=== PATIENT | male | born 1965 | race Caucasian/White ===

== ENCOUNTER → 2016-02-12 | Outpatient (CLI) | payer MEDICARE, OTHER ==
[2016-02-12 10:28] LABS: Appearance,Urine Clear (Clear); Bilirubin,Urine Negative (Negative); Glucose,Urine (UA) Negative (Negative); Ketones,Urine Trace (Negative); Leukocyte Esterase,Urine Negative (Negative); Nitrite,Urine Negative (Negative); Protein,Urine Trace (Negative); UA Billing (MACRO vs. MICRO) CHEM; Urobilinogen,Urine <2.0 mg/dL (<2.0)
[2016-02-12 10:34] LABS: Basophils % (A) 1 %; CH 30.5; CHCM 32.9; Eosinophils # (A) 0.2 k/uL (0-0.7); Eosinophils % (A) 4 %; HCT 43.8 % (39.0-53.0); HDW 2.54; HGB 14.3 gm/dL (13.0-17.5); Luc # (Auto) 0.13; Luc % (Auto) 3; Lymphocytes # (A) 1.9 k/uL (1.0-4.8); Lymphocytes % (A) 40 %; MCH 30.5 pg (25.0-35.0); MCHC 32.7 g/dL (31.0-37.0); MCV 93.3 fL (80.0-100.0); Monocytes # (A) 0.4 k/uL (0-1.0); Monocytes % (A) 8 %; Neutrophils # (A) 2.2 k/uL (1.3-7.7); Neutrophils % (A) 45 %; RBC 4.69 m/uL (4.30-5.90); WBC 4.8 k/uL (3.8-10.6); WBC (Perox) 5.24
[2016-02-12 11:00] LABS: Hemoglobin A1C 4.9 % (4.2-6.1)
[2016-02-12 11:05] LABS: ALT 25 U/L (21-72); AST 32 U/L (17-59); Alkaline Phosphatase 55 U/L (38-126); Anion Gap 10 mmol/L; Bilirubin, Delta 0.3 mg/dL (0.0-0.2); Blood Urea Nitrogen 15 mg/dL (9-20); Calcium 9.6 mg/dL (8.4-10.2); Carbon Dioxide 30 mmol/L (22-30); Chloride 103 mmol/L (98-107); Cholesterol 212 mg/dL (<200); Glucose 82 mg/dL (74-99); HDL Cholesterol 46 mg/dL (40-60); Non-African American GFR(MDRD) >60 (>60 ml/min/1.73 sqM); Potassium 4.2 mmol/L (3.5-5.1); Sodium 143 mmol/L (137-145); Total Bilirubin 0.5 mg/dL (0.2-1.3); Total Protein 6.9 g/dL (6.3-8.2); Triglycerides 127 mg/dL (<150)
[2016-02-12 11:33] LABS: Prostate Specific Antigen 1.05 ng/mL (0.00-4.00)
== END | disposition home or self-care (01) ==
LOC: LABWHC1 09:44
PROVIDERS: ATTEND Internal Medicine
DX: I10 Essential (primary) hypertension (principal); E78.5 Hyperlipidemia, unspecified; E55.9 Vitamin D deficiency, unspecified; Z12.5 Encounter for screening for malignant neoplasm of prostate; Z79.899 Other long term (current) drug therapy
CPT/HCPCS: 36415; 80053; 80061; 80164; 81003; 82248; 82306; 83036; 84153; 85025

== ENCOUNTER 2016-05-27 10:56 | Day surgery (SDC) | payer MEDICARE, OTHER ==
[2016-05-26 10:21] VITALS: BMI 34.4
[~2016-05-27 10:56] MED LIST: LACTATED RINGERS 1,000 ML IV SCH
[2016-05-27 12:51] VITALS: TEMP 97.1
[2016-05-27] MEDS ORDERED: LIDOCAINE 1% 20 ML VIAL (10MG/ML) FOR IV START INTRADERMA ONE (12:54)
[2016-05-27] MEDS ORDERED: PROPOFOL 10 MG/ML 20 ML VIAL IV ONE (12:58)
--- NOTE | 2016-05-27 13:17 | P.PCN ---
Date of Procedure: 05/27/16 Procedure(s) Performed: BRIEF HISTORY: Patient is a 51-year-old pleasant white male scheduled for an elective colonoscopy as a part of screening for colorectal neoplasia. PROCEDURE PERFORMED: Colonoscopy with biopsy. PREOPERATIVE DIAGNOSIS: Screening for colon cancer. IV sedation per Anesthesia. PROCEDURE: After informed consent was obtained, the patient, was brought into the endoscopy unit. IV sedation was administered by Anesthesia under continuous monitoring. Digital rectal examination was normal. Initially the Olympus CF- 160 flexible video colonoscope was then inserted in the rectum, gradually advanced into the cecum without any difficulty. Careful examination was performed as the scope was gradually being withdrawn. Ileocecal valve and the appendiceal orifice were visualized and appeared normal. Prep was excellent. Mucosa of the cecum, ascending colon, transverse colon, descending colon, appeared normal. In the sigmoid colon there was a polyp that was removed by biopsy. The rest of the sigmoid colon, and rectum appeared normal. Scattered sigmoid diverticula seen. Retroflexion was performed in the rectum and no lesions were seen. The patient tolerated the procedure well. IMPRESSION: 5 mm sigmoid colon polyp status post removal by biopsy. Scattered sigmoid diverticulosis RECOMMENDATIONS: Findings of this examination were discussed with the patient as well as his family. He was advised to follow with the biopsy results. If the biopsy shows a tubular adenoma he can have a repeat colonoscopy in 5 years .
[2016-05-27 13:42] VITALS: BP 139/91; PULSE 55; RESP 16
== END 2016-05-27 14:28 | disposition home or self-care (01) ==
LOC: ORWHC2ENDO 10:56
PROVIDERS: ATTEND Internal Medicine Gastroenterology
DX: Z12.11 Encounter for screening for malignant neoplasm of colon (principal); K63.5 Polyp of colon; K57.30 Diverticulosis of large intestine without perforation or abscess without bleeding; F31.9 Bipolar disorder, unspecified; G20 Parkinson's disease; Z79.899 Other long term (current) drug therapy; Z88.8 Allergy status to other drugs, medicaments and biological substances
CPT/HCPCS: 88305; 45380; J2704

== ENCOUNTER → 2016-09-21 | Outpatient (CLI) | payer MEDICARE, OTHER ==
[2016-09-21 09:42] LABS: Basophils % (A) 0 %; CH 31.5; CHCM 33.5; Eosinophils # (A) 0.2 k/uL (0-0.7); Eosinophils % (A) 5 %; HCT 42.1 % (39.0-53.0); HDW 2.43; HGB 13.6 gm/dL (13.0-17.5); Luc % (Auto) 2; Lymphocytes # (A) 1.8 k/uL (1.0-4.8); Lymphocytes % (A) 37 %; MCH 30.5 pg (25.0-35.0); MCHC 32.2 g/dL (31.0-37.0); MCV 94.6 fL (80.0-100.0); Mean Platelet Volume 7.9; Monocytes # (A) 0.4 k/uL (0-1.0); Monocytes % (A) 8 %; Neutrophils # (A) 2.3 k/uL (1.3-7.7); Neutrophils % (A) 48 %; RBC 4.45 m/uL (4.30-5.90); WBC 4.8 k/uL (3.8-10.6); WBC (Perox) 4.67
[2016-09-21 11:48] LABS: Bilirubin, Delta 0.4 mg/dL (0.0-0.2); Total Bilirubin 0.5 mg/dL (0.2-1.3)
[2016-09-21 13:14] LABS: Hemoglobin A1C 5.5 % (4.2-6.1)
== END | disposition home or self-care (01) ==
LOC: LABWHC1 08:55
DX: Z51.81 Encounter for therapeutic drug level monitoring (principal); Z79.899 Other long term (current) drug therapy
CPT/HCPCS: 36415; 80061; 80076; 82947; 83036; 84146; 84443; 85025

== ENCOUNTER → 2016-09-22 | Outpatient (CLI) | payer MEDICARE, OTHER | END | disposition home or self-care (01) | LOC: LABWHC1 08:39 | DX: Z51.81 Encounter for therapeutic drug level monitoring (principal); Z79.899 Other long term (current) drug therapy | CPT/HCPCS: 36415; 80164 ==

== ENCOUNTER → 2017-08-17 | Outpatient (CLI) | payer MEDICARE, OTHER ==
[2017-08-17 09:35] LABS: Basophils % (A) 0 %; Eosinophils # (A) 0.2 k/uL (0-0.7); Eosinophils % (A) 4 %; HCT 40.2 % (39.0-53.0); HGB 13.5 gm/dL (13.0-17.5); Lymphocytes # (A) 2.1 k/uL (1.0-4.8); Lymphocytes % (A) 40 %; MCH 30.8 pg (25.0-35.0); MCHC 33.5 g/dL (31.0-37.0); MCV 92.1 fL (80.0-100.0); Mean Platelet Volume 7.2; Monocytes # (A) 0.4 k/uL (0-1.0); Monocytes % (A) 8 %; Neutrophils # (A) 2.5 k/uL (1.3-7.7); Neutrophils % (A) 47 %; Platelet Count 184 k/uL (150-450); RBC 4.37 m/uL (4.30-5.90); RDW 14.6 % (11.5-15.5); WBC 5.3 k/uL (3.8-10.6)
[2017-08-17 11:23] LABS: ALT 37 U/L (21-72); AST 20 U/L (17-59); Albumin 3.9 g/dL (3.5-5.0); Alkaline Phosphatase 58 U/L (38-126); Anion Gap 10 mmol/L; Bilirubin, Delta 0.2 mg/dL (0.0-0.2); Blood Urea Nitrogen 20 mg/dL (9-20); Calcium 9.5 mg/dL (8.4-10.2); Carbon Dioxide 27 mmol/L (22-30); Chloride 103 mmol/L (98-107); Cholesterol 174 mg/dL (<200); Glucose 102 mg/dL (74-99); HDL Cholesterol 38 mg/dL (40-60); LDL Cholesterol,Calculated 95 mg/dL (0-99); Potassium 4.2 mmol/L (3.5-5.1); Sodium 140 mmol/L (137-145); Total Bilirubin 0.2 mg/dL (0.2-1.3); Total Protein 6.5 g/dL (6.3-8.2); Triglycerides 207 mg/dL (<150)
[2017-08-17 17:18] LABS: Hemoglobin A1C 5.3 % (4.0-6.0)
== END | disposition home or self-care (01) ==
LOC: LABWHC1 08:48
DX: Z51.81 Encounter for therapeutic drug level monitoring (principal); Z79.899 Other long term (current) drug therapy
CPT/HCPCS: 36415; 80053; 80061; 80164; 82248; 83036; 84439; 84443; 84481; 85025

== ENCOUNTER → 2017-12-05 | Outpatient (CLI) | payer MEDICARE, OTHER ==
[2017-12-05 10:42] LABS: Basophils % (A) 1 %; Eosinophils # (A) 0.2 k/uL (0-0.7); Eosinophils % (A) 4 %; HCT 41.8 % (39.0-53.0); HGB 13.9 gm/dL (13.0-17.5); Lymphocytes % (A) 39 %; MCHC 33.4 g/dL (31.0-37.0); MCV 92.9 fL (80.0-100.0); Mean Platelet Volume 7.1; Monocytes # (A) 0.4 k/uL (0-1.0); Monocytes % (A) 7 %; Neutrophils # (A) 2.5 k/uL (1.3-7.7); Neutrophils % (A) 48 %; Platelet Count 201 k/uL (150-450); RBC 4.49 m/uL (4.30-5.90); RDW 14.3 % (11.5-15.5); WBC 5.1 k/uL (3.8-10.6)
[2017-12-05 10:43] LABS: Appearance,Urine Clear (Clear); Bilirubin,Urine Negative (Negative); Blood,Urine Negative (Negative); Color,Urine Light Yellow; Glucose,Urine (UA) Negative (Negative); Ketones,Urine Negative (Negative); Leukocyte Esterase,Urine Negative (Negative); Nitrite,Urine Negative (Negative); PH, Urine 5.5 (5.0-8.0); Protein,Urine Negative (Negative); Specific Gravity,Urine 1.013 (1.001-1.035); Urobilinogen,Urine <2.0 mg/dL (<2.0)
[2017-12-05 16:37] LABS: Albumin 4.3 g/dL (3.80-4.90); Albumin/Globulin Ratio 2.05 (1.20-2.10); Anion Gap 8.2 mmol/L (4.00-12.00); Calcium 9.7 mg/dL (8.7-10.3); Carbon Dioxide 29.8 mmol/L (21.6-31.8); Globulin 2.1 g/dL (2.1-3.7); LDL Cholesterol,Calculated 106.6 mg/dL (0.0-131.0); Potassium 4.1 mmol/L (3.5-5.5); Total Bilirubin 0.3 mg/dL (0.3-1.2); Total Protein 6.4 g/dL (6.2-8.2); VLDL Calculation 45.4 mg/dL (5.00-40.00)
[2017-12-05 18:31] LABS: Hemoglobin A1C 5.3 % (4.0-6.0)
== END | disposition home or self-care (01) ==
LOC: LABWHC1 09:33
PROVIDERS: ATTEND Internal Medicine
DX: I10 Essential (primary) hypertension (principal); R73.02 Impaired glucose tolerance (oral); E66.9 Obesity, unspecified
CPT/HCPCS: 36415; 80053; 80061; 81003; 83036; 84443; 85025

== ENCOUNTER → 2018-07-31 | Outpatient (CLI) | payer MEDICARE, OTHER ==
[2018-07-31 10:38] LABS: HCT 38.6 % (39.0-53.0); HGB 12.7 gm/dL (13.0-17.5); MCH 30.3 pg (25.0-35.0); MCHC 32.9 g/dL (31.0-37.0); MCV 92.2 fL (80.0-100.0); Mean Platelet Volume 7.9; Platelet Count 177 k/uL (150-450); RBC 4.18 m/uL (4.30-5.90); RDW 15.6 % (11.5-15.5); WBC 5.3 k/uL (3.8-10.6)
[2018-07-31 16:27] LABS: African American GFR (CKD) 112.6 (60.0-200.0); Albumin 4.2 g/dL (3.80-4.90); Albumin/Globulin Ratio 2.21 (1.60-3.17); Anion Gap 10.5 mmol/L (4.00-12.00); BUN/Creat Ratio 22.22 Ratio (12.00-20.00); Calcium 9.2 mg/dL (8.7-10.3); Carbon Dioxide 24.5 mmol/L (21.6-31.8); Globulin 1.9 g/dL (1.6-3.3); LDL Cholesterol,Calculated 120.8 mg/dL (0.0-131.0); Potassium 4.1 mmol/L (3.5-5.5); Total Bilirubin 0.3 mg/dL (0.2-1.2); Total Protein 6.1 g/dL (6.2-8.2); VLDL Calculation 36.2 mg/dL (5.00-40.00)
[2018-07-31 16:33] LABS: T4, Free (Free Thyroxine) 0.9 ng/dL (0.80-1.80)
== END | disposition home or self-care (01) ==
LOC: LABWHC1 09:03
PROVIDERS: ATTEND Physician Assistant
DX: Z00.00 Encounter for general adult medical examination without abnormal findings (principal); Z13.220 Encounter for screening for lipoid disorders; R53.83 Other fatigue; Z12.5 Encounter for screening for malignant neoplasm of prostate
CPT/HCPCS: 36415; 80053; 80061; 82306; 84153; 84439; 84443; 85027

== ENCOUNTER 2019-03-13 16:10 | Inpatient (IN) | payer MEDICARE, OTHER ==
[2019-03-13] MEDS ORDERED: ONDANSETRON 4 MG/2 ML VIAL IVP STA (17:13)
[2019-03-13] MEDS ORDERED: PANTOPRAZOLE 40 MG/10 ML VIAL IVP STA (17:13)
[2019-03-13] MEDS ORDERED: MORPHINE SULFATE 4 MG/ML SYRINGE IV STA (17:13)
[2019-03-13] MEDS ORDERED: SODIUM CHLORIDE 0.9% 1,000 ML IV STA (17:13)
--- NOTE | 2019-03-13 17:13 | ED ---
Abdominal Pain HPI - General Chief Complaint: Abdominal Pain Stated Complaint: Diarrhea Time Seen by Provider: 03/13/19 16:35 Source: patient, RN notes reviewed, old records reviewed Mode of arrival: ambulatory Limitations: no limitations - History of Present Illness Initial Comments: This is a 53-year-old male here for evaluation presented for evaluation regards to multiple complaints including abdominal pain positive nausea vomiting and diarrhea. He says he had similar symptoms about 6 years ago or more persistent today denying any fevers. No sick contacts or travel history and unsure of significant cause a had prior he states he did not require hospitalization is no history of surgical procedures on his abdomen. No recent change in medications. Patient was at his guardians house earlier today with the symptoms going persistent nausea and abdominal pain and was urged to complete hospital, patient presents today with continued abdominal pain no active nausea vomiting MD Complaint: abdominal pain, other (Persistent nausea vomiting) -: hour(s) Location: diffuse Migration to: no migration Severity: moderate Severity scale (1-10): 4 Quality: cramping Consistency: constant Improves With: nothing Worsens With: nothing Associated Symptoms: nausea, vomiting - Related Data Home Medications Medication Instructions Recorded Confirmed Benztropine Mesylate [Cogentin] 2 mg PO BID 10/21/15 05/26/16 Divalproex ER [Depakote ER] 500 mg PO TID 10/21/15 05/26/16 Losartan Potassium [Cozaar] 100 mg PO DAILY 10/21/15 05/26/16 Lurasidone [Latuda] 80 mg PO HS 10/21/15 05/26/16 QUEtiapine [SEROquel] 200 mg PO HS 10/21/15 05/26/16 amLODIPine [Norvasc] 2.5 mg PO DAILY 10/21/15 05/26/16 Carbidopa/Levodopa [Carbidopa-Levo 1 each PO TID 05/26/16 05/26/16 25-250 mg Odt] Diclofenac Sodium [Voltaren] 75 mg PO BID 05/26/16 05/26/16 Primidone [Mysoline] 50 mg PO TID 05/26/16 05/26/16 fluPHENAZine [Prolixin 5MG] 5 mg PO BID 05/26/16 05/26/16 Allergies Allergy/AdvReac Type Severity Reaction Status Date / Time haloperidol [From Haldol] Allergy Unknown Verified 03/13/19 16:21 haloperidol lactate Allergy Unknown Verified 03/13/19 16:21 [From Haldol] risperidone [From Risperdal] Allergy Unknown Verified 03/13/19 16:21 Review of Systems ROS Statement: Those systems with pertinent positive or pertinent negative responses have been documented in the HPI. ROS Other: All systems not noted in ROS Statement are negative. 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 DEPAKOTE PER LEGAL GUARDIAN", PARKINSON DISEASE History of Any Multi-Drug Resistant Organisms: None Reported Past Surgical History: No Surgical Hx Reported Additional Past Surgical History / Comment(s): upper gi Additional Past Anesthesia/Blood Transfusion Reaction / Comment(s): FIRST ANESTHETIC Past Psychological History: Bipolar, Schizophrenia Smoking Status: Never smoker Past Alcohol Use History: None Reported Past Drug Use History: None Reported - Past Family History Mother Family Medical History: No Reported History General Exam Limitations: no limitations General appearance: alert, in no apparent distress Head exam: Present: atraumatic, normocephalic, normal inspection Eye exam: Present: normal appearance, PERRL, EOMI. Absent: scleral icterus, conjunctival injection, periorbital swelling ENT exam: Present: normal exam, mucous membranes moist Neck exam: Present: normal inspection. Absent: tenderness, meningismus, lymphadenopathy Respiratory exam: Present: normal lung sounds bilaterally. Absent: respiratory distress, wheezes, rales, rhonchi, stridor Cardiovascular Exam: Present: regular rate, normal rhythm, normal heart sounds. Absent: systolic murmur, diastolic murmur, rubs, gallop, clicks GI/Abdominal exam: Present: soft, normal bowel sounds. Absent: distended, tenderness, guarding, rebound, rigid Extremities exam: Present: normal inspection, full ROM, normal capillary refill. Absent: tenderness, pedal edema, joint swelling, calf tenderness Back exam: Present: normal inspection Neurological exam: Present: alert, oriented X3, CN II-XII intact Psychiatric exam: Present: normal affect, normal mood Skin exam: Present: warm, dry, intact, normal color. Absent: rash Course Vital Signs 03/13/19 03/13/19 16:19 18:41 Temperature 98.9 F Pulse Rate 86 78 Respiratory 20 16 Rate Blood Pressure 155/56 142/73 O2 Sat by Pulse 10 L 100 Oximetry - Reevaluation(s) Reevaluation #1: 03/13/19 17:13 Medical records reviewed Reevaluation #2: 03/13/19 19:24 Patient still with persistent nausea vomiting and diarrhea here in the ER - Consultations Consultation #1: Spoke with Dr. Moreno was agreeable to admit Medical Decision Making - Medical Decision Making 53 male does have persistent nausea vomiting with diarrhea here in the ER CT is consistent for ileus with significant amount of stool Giles. Diarrheal illness. Patient be admitted for hydration and symptomatic management - Lab Data Result diagrams: 03/13/19 17:06 03/13/19 17:06 Lab Results 03/13/19 03/13/19 03/13/19 Range/Units 17:06 17:06 17:06 WBC 8.7 (3.8-10.6) k/uL RBC 5.33 (4.30-5.90) m/uL Hgb 15.9 (13.0-17.5) gm/dL Hct 47.5 (39.0-53.0) % MCV 89.2 (80.0-100.0) fL MCH 29.8 (25.0-35.0) pg MCHC 33.4 (31.0-37.0) g/dL RDW 13.6 (11.5-15.5) % Plt Count 231 (150-450) k/uL Neutrophils % 78 % Lymphocytes % 12 % Monocytes % 5 % Eosinophils % 2 % Basophils % 1 % Neutrophils # 6.8 (1.3-7.7) k/uL Lymphocytes # 1.1 (1.0-4.8) k/uL Monocytes # 0.5 (0-1.0) k/uL Eosinophils # 0.2 (0-0.7) k/uL Basophils # 0.1 (0-0.2) k/uL Sodium 139 (137-145) mmol/L Potassium 4.4 (3.5-5.1) mmol/L Chloride 100 (98-107) mmol/L Carbon Dioxide 25 (22-30) mmol/L Anion Gap 14 mmol/L BUN 16 (9-20) mg/dL Creatinine 0.90 (0.66-1.25) mg/dL Est GFR (CKD-EPI)AfAm >90 (>60 ml/min/1.73 sqM) Est GFR (CKD-EPI)NonAf >90 (>60 ml/min/1.73 sqM) Glucose 125 H (74-99) mg/dL Plasma Lactic Acid Hamzah 2.1 H* (0.7-2.0) mmol/L Calcium 10.3 H (8.4-10.2) mg/dL Total Bilirubin 0.8 (0.2-1.3) mg/dL AST 38 (17-59) U/L ALT 36 (4-49) U/L Alkaline Phosphatase 84 (38-126) U/L Total Protein 8.4 H (6.3-8.2) g/dL Albumin 4.8 (3.5-5.0) g/dL Amylase 84 (30-110) U/L Lipase 267 (23-300) U/L Urine Color Urine Appearance (Clear) Urine pH (5.0-8.0) Ur Specific [place] (1.001-1.035) Urine Protein (Negative) Urine Glucose (UA) (Negative) Urine Ketones (Negative) Urine Blood (Negative) Urine Nitrite (Negative) Urine Bilirubin (Negative) Urine Urobilinogen (<2.0) mg/dL Ur Leukocyte Esterase (Negative) 03/13/19 Range/Units 18:29 WBC (3.8-10.6) k/uL RBC (4.30-5.90) m/uL Hgb (13.0-17.5) gm/dL Hct (39.0-53.0) % MCV (80.0-100.0) fL MCH (25.0-35.0) pg MCHC (31.0-37.0) g/dL RDW (11.5-15.5) % Plt Count (150-450) k/uL Neutrophils % % Lymphocytes % % Monocytes % % Eosinophils % % Basophils % % Neutrophils # (1.3-7.7) k/uL Lymphocytes # (1.0-4.8) k/uL Monocytes # (0-1.0) k/uL Eosinophils # (0-0.7) k/uL Basophils # (0-0.2) k/uL Sodium (137-145) mmol/L Potassium (3.5-5.1) mmol/L Chloride (98-107) mmol/L Carbon Dioxide (22-30) mmol/L Anion Gap mmol/L BUN (9-20) mg/dL Creatinine (0.66-1.25) mg/dL Est GFR (CKD-EPI)AfAm (>60 ml/min/1.73 sqM) Est GFR (CKD-EPI)NonAf (>60 ml/min/1.73 sqM) Glucose (74-99) mg/dL Plasma Lactic Acid Hamzah (0.7-2.0) mmol/L Calcium (8.4-10.2) mg/dL Total Bilirubin (0.2-1.3) mg/dL AST (17-59) U/L ALT (4-49) U/L Alkaline Phosphatase (38-126) U/L Total Protein (6.3-8.2) g/dL Albumin (3.5-5.0) g/dL Amylase (30-110) U/L Lipase (23-300) U/L Urine Color Yellow Urine Appearance Clear (Clear) Urine pH 6.0 (5.0-8.0) Ur Specific [place] >1.050 H (1.001-1.035) Urine Protein Trace H (Negative) Urine Glucose (UA) Negative (Negative) Urine Ketones Negative (Negative) Urine Blood Negative (Negative) Urine Nitrite Negative (Negative) Urine Bilirubin Negative (Negative) Urine Urobilinogen <2.0 (<2.0) mg/dL Ur Leukocyte Esterase Negative (Negative) - Radiology Data Radiology results: report reviewed (CT abdomen pelvis is positive for ileus), image reviewed Disposition Clinical Impression: Abdominal pain, Constipation, Gastroenteritis, Ileus, Nausea & vomiting, Diarrhea Disposition: ADMITTED IP TO THIS HOSP Condition: Good Is patient prescribed a controlled substance at d/c from ED?: No Referrals: Chris Champagne MD [Primary Care Provider] - 1-2 days
[2019-03-13 17:24] LABS: Basophils # (A) 0.1 k/uL (0-0.2); Basophils % (A) 1 %; Eosinophils # (A) 0.2 k/uL (0-0.7); Eosinophils % (A) 2 %; HCT 47.5 % (39.0-53.0); HGB 15.9 gm/dL (13.0-17.5); Lymphocytes # (A) 1.1 k/uL (1.0-4.8); Lymphocytes % (A) 12 %; MCH 29.8 pg (25.0-35.0); MCHC 33.4 g/dL (31.0-37.0); MCV 89.2 fL (80.0-100.0); Mean Platelet Volume 8.1; Monocytes # (A) 0.5 k/uL (0-1.0); Monocytes % (A) 5 %; Neutrophils # (A) 6.8 k/uL (1.3-7.7); Neutrophils % (A) 78 %; Platelet Count 231 k/uL (150-450); RBC 5.33 m/uL (4.30-5.90); RDW 13.6 % (11.5-15.5); WBC 8.7 k/uL (3.8-10.6)
[2019-03-13 17:29] LABS: ALT 36 U/L (4-49); AST 38 U/L (17-59); African American GFR (CKD) >90 (>60 ml/min/1.73 sqM); Albumin 4.8 g/dL (3.5-5.0); Alkaline Phosphatase 84 U/L (38-126); Amylase 84 U/L (30-110); Anion Gap 14 mmol/L; Blood Urea Nitrogen 16 mg/dL (9-20); Calcium 10.3 mg/dL (8.4-10.2); Carbon Dioxide 25 mmol/L (22-30); Chloride 100 mmol/L (98-107); Glucose 125 mg/dL (74-99); Non-African American GFR(CKD) >90 (>60 ml/min/1.73 sqM); Potassium 4.4 mmol/L (3.5-5.1); Sodium 139 mmol/L (137-145); Total Bilirubin 0.8 mg/dL (0.2-1.3); Total Protein 8.4 g/dL (6.3-8.2)
--- NOTE | 2019-03-13 18:20 | CT ---
EXAMINATION TYPE: CT abdomen pelvis w con DATE OF EXAM: 03/13/2019 COMPARISON: HISTORY: Diarrhea x [address] DLP: 1757.2 mGycm Automated exposure control for dose reduction was used. CONTRAST: Performed with IV Contrast, patient injected with 100 mL of Isovue 300. Multiple axial sections were obtained from the diaphragm to the floor the pelvis with intravenous con trast. Lung bases are clear. There is no pleural effusion. There is no pericardial effusion. Heart size is f airly normal. There is small hiatal hernia. There is mild fatty infiltration of the liver. Gallbladder appears norm al. Bile ducts are not dilated. Spleen appears normal. Stomach appears normal. There is no evidence o f pancreatic mass. There is no adrenal mass. Kidneys show satisfactory contrast opacification. There is no hydronephrosi s. There is 1 cm cortical cyst upper pole left kidney. Ureters are not dilated. There is no retroperi toneal adenopathy. Bladder distends smoothly. There is no inguinal hernia. There is no free fluid in the pelvis. There is mildly dilated multiple loops of fluid-filled small bowel. Small bowel measures up to 3.3 cm . There is small amount of free fluid in the right paracolic gutter. There is fluid in the large eliecer l down to the rectum. I do not see a transition point. There is no mesenteric edema. There is no asci tracy or free air. Lumbar vertebra have normal alignment. There is no compression fracture. Bony pelvis appears intact. Hip joints are intact. IMPRESSION: Mildly dilated fluid-filled small bowel. Fluid in the large bowel down to the rectum. This is consist ent with generalized ileus and diarrhea. Minimal fluid in the right paracolic gutter.
[2019-03-13 18:59] LABS: Appearance,Urine Clear (Clear); Bilirubin,Urine Negative (Negative); Blood,Urine Negative (Negative); Color,Urine Yellow; Glucose,Urine (UA) Negative (Negative); Ketones,Urine Negative (Negative); Leukocyte Esterase,Urine Negative (Negative); Nitrite,Urine Negative (Negative); Protein,Urine Trace (Negative); Urobilinogen,Urine <2.0 mg/dL (<2.0)
[2019-03-13 19:00] LABS: Specific Gravity,Urine >1.050 (1.001-1.035)
[2019-03-13] MEDS ORDERED: ONDANSETRON 4 MG/2 ML VIAL IVP PRN (19:25)
[2019-03-13] MEDS ORDERED: SODIUM CHLORIDE 0.9% 1,000 ML IV ONE (19:25)
[2019-03-14] MEDS: PANTOPRAZOLE 40 MG/10 ML VIAL IVP SCH (08:45)
[2019-03-14] MEDS: amLODIPine 2.5 MG TAB PO SCH (11:01)
[2019-03-14] MEDS: DIVALPROEX ER 500 MG TAB.ER.24H PO SCH ×3 (11:02→21:19)
[2019-03-14] MEDS: BENZTROPINE MESYLATE 1 MG TAB PO SCH ×2 (11:02→21:20)
[2019-03-14] MEDS: LOSARTAN 50 MG TAB PO SCH (11:02)
[2019-03-14] MEDS: PRIMIDONE 50 MG TAB PO SCH ×3 (11:02→21:20)
[2019-03-14] MEDS: HYDROCHLOROTHIAZIDE 25 MG TAB PO SCH (11:02)
--- NOTE | 2019-03-14 12:33 | P.GSCN ---
<Ileana Miranda - Last Filed: 03/14/19 12:28> History of Present Illness Consult date: 03/14/19 Reason for Consult: ileus Requesting physician: Danial Moreno History of present illness: CHIEF COMPLAINT: ileus HISTORY OF PRESENT ILLNESS: 53 year old male who presented to the ER with a chief complaint of diarrhea. Patient reports diarrhea for 4 days. He denies abdominal pain. Denies nausea or vomiting. Denies fever or chills. Patient has a history of colonoscopy performed [place] [address] Walsh revealing sigmoid colon polyp and scattered diverticulosis. PAST MEDICAL HISTORY: See list. PAST SURGICAL HISTORY: See list. MEDICATIONS: See list. ALLERGIES: See list. SOCIAL HISTORY: No illicit drug use. REVIEW OF SYSTEMS: CONSTITUTIONAL: Denies fever or chills. HEENT: Denies blurred vision, vision changes, or eye pain. Denies hemoptysis ENDOCRINE: Denies heat or cold intolerance. CARDIOVASCULAR: Denies chest pain or pressure. RESPIRATORY: No shortness of breath. GASTROINTESTINAL: See HPI for pertinent findings NEURO: Possible history of seizure disorder PSYCH: No depression or suicidal ideation. History of bipolar and schizophrenia. HEMATOLOGIC: Denies bleeding disorders. LYMPHATIC: The patient denies any lumps and bumps around the neck. GENITOURINARY: Denies any blood in urine or increased urinary frequency. MUSCULOSKELETAL: Denies myalgias. Denies joint swelling. Denies decreased range of motion beyond patients baseline. SKIN: Denies pruitis. Denies rash. PHYSICAL EXAM: VITAL SIGNS: Reviewed GENERAL: Well-developed in no acute distress. HEENT: No sclera icterus. Extraocular movements grossly intact. Moist buccal mucosa. Head is atraumatic, normocephalic. Hears conversational speech. No nasal drainage. NECK: Supple without lymphadenopathy. CHEST: Non-labored respirations and equal bilateral excursions. CARDIOVASCULAR: Regular rate with regular rhythm. Palpable 2+ radial pulses. ABDOMEN: Soft. Nondistended. Nontender. MUSCULOSKELETAL: No clubbing, cyanosis or edema. NEUROLOGIC: No focal or lateralizing signs. Cranial nerves II through XII grossly intact. Resting tremor of upper extremities noted. PSYCH: Appropriate affect. Alert and oriented to person, place and time. SKIN: Well perfused. Good skin turgor. LABORATORY DATA: WBC 8.7. Hemoglobin 15.9. Platelet count 231. Sodium 139. Potassium 4.4. BUN 16. Creatinine 0.90. Lactic acid 2.1. Repeat 1.5. IMAGING: CT abdomen and pelvis: Mildly dilated fluid-filled small bowel. Fluid in the large bowel down to the rectum. This is consistent with generalized ileus and diarrhea. ASSESSMENT: 1. Diarrhea x 4 days PLAN: Begin full liquid diet. Advance as tolerated GI on consult. Await recommendations No surgical intervention recommended Nurse practitioner note has been reviewed by physician. Signing provider agrees with the documented findings, assessment, and plan of care. 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 no recolection of either of these History of Any Multi-Drug Resistant Organisms: None Reported Past Surgical History: No Surgical Hx Reported Additional Past Surgical History / Comment(s): Upper gi Past Anesthesia/Blood Transfusion Reactions: No Reported Reaction Additional Past Anesthesia/Blood Transfusion Reaction / Comm: FIRST ANESTHETIC Past Psychological History: Bipolar, Schizophrenia Additional Psychological History / Comment(s): Borderline Smoking Status: Never smoker Past Alcohol Use History: None Reported Past Drug Use History: None Reported - Past Family History Mother Family Medical History: No Reported History Medications and Allergies Home Medications Medication Instructions Recorded Confirmed Type Benztropine Mesylate [Cogentin] 2 mg PO BID 10/21/15 03/14/19 History Divalproex ER [Depakote ER] 500 mg PO TID 10/21/15 03/14/19 History amLODIPine [Norvasc] 2.5 mg PO DAILY 10/21/15 03/14/19 History Primidone [Mysoline] 50 mg PO TID 05/26/16 03/14/19 History Fluphenazine HCl [fluPHENAZine HCL] 10 mg PO BID 03/14/19 03/14/19 History Hydrochlorothiazide [Hydrodiuril] 25 mg PO DAILY 03/14/19 03/14/19 History Losartan [Cozaar] 50 mg PO DAILY 03/14/19 03/14/19 History Lurasidone HCl [Latuda] 60 mg PO DAILY 03/14/19 03/14/19 History Omeprazole 20 mg PO DAILY 03/14/19 03/14/19 History QUEtiapine FUMARATE 300 mg PO HS 03/14/19 03/14/19 History Allergies Allergy/AdvReac Type Severity Reaction Status Date / Time haloperidol [From Haldol] Allergy Unknown Unknown Verified 03/13/19 20:43 haloperidol lactate Allergy Unknown Unknown Verified 03/13/19 20:43 [From Haldol] risperidone [From Risperdal] AdvReac Unknown Unknown Verified 03/13/19 20:43 Surgical - Exam Vital Signs Temp Pulse Resp BP Pulse Ox 98.9 F 86 20 155/56 100 03/13/19 16:19 03/13/19 16:19 03/13/19 16:19 03/13/19 16:19 03/13/19 16:19 Results - Labs 03/13/19 17:06 03/13/19 17:06 Abnormal Lab Results - Last 24 Hours (Table) 03/13/19 03/13/19 03/13/19 Range/Units 17:06 17:06 18:29 Glucose 125 H (74-99) mg/dL Plasma Lactic Acid Hamzah 2.1 H* (0.7-2.0) mmol/L Calcium 10.3 H (8.4-10.2) mg/dL Total Protein 8.4 H (6.3-8.2) g/dL Ur Specific [place] >1.050 H (1.001-1.035) Urine Protein Trace H (Negative) Diabetes panel 03/13/19 Range/Units 17:06 Sodium 139 (137-145) mmol/L Potassium 4.4 (3.5-5.1) mmol/L Chloride 100 (98-107) mmol/L Carbon Dioxide 25 (22-30) mmol/L BUN 16 (9-20) mg/dL Creatinine 0.90 (0.66-1.25) mg/dL Glucose 125 H (74-99) mg/dL Calcium 10.3 H (8.4-10.2) mg/dL AST 38 (17-59) U/L ALT 36 (4-49) U/L Alkaline Phosphatase 84 (38-126) U/L Total Protein 8.4 H (6.3-8.2) g/dL Albumin 4.8 (3.5-5.0) g/dL Calcium panel 03/13/19 Range/Units 17:06 Calcium 10.3 H (8.4-10.2) mg/dL Albumin 4.8 (3.5-5.0) g/dL Pituitary panel 03/13/19 Range/Units 17:06 Sodium 139 (137-145) mmol/L Potassium 4.4 (3.5-5.1) mmol/L Chloride 100 (98-107) mmol/L Carbon Dioxide 25 (22-30) mmol/L BUN 16 (9-20) mg/dL Creatinine 0.90 (0.66-1.25) mg/dL Glucose 125 H (74-99) mg/dL Calcium 10.3 H (8.4-10.2) mg/dL Adrenal panel 03/13/19 Range/Units 17:06 Sodium 139 (137-145) mmol/L Potassium 4.4 (3.5-5.1) mmol/L Chloride 100 (98-107) mmol/L Carbon Dioxide 25 (22-30) mmol/L BUN 16 (9-20) mg/dL Creatinine 0.90 (0.66-1.25) mg/dL Glucose 125 H (74-99) mg/dL Calcium 10.3 H (8.4-10.2) mg/dL Total Bilirubin 0.8 (0.2-1.3) mg/dL AST 38 (17-59) U/L ALT 36 (4-49) U/L Alkaline Phosphatase 84 (38-126) U/L Total Protein 8.4 H (6.3-8.2) g/dL Albumin 4.8 (3.5-5.0) g/dL <Afua Carolina N - Last Filed: 03/14/19 15:50> History of Present Illness History of present illness: As above. No surgical intervention needed at this time. GI evaluation recommended. We'll follow as needed Surgical - Exam Vital Signs Temp Pulse Resp BP Pulse Ox 98.9 F 86 20 155/56 100 03/13/19 16:19 03/13/19 16:19 03/13/19 16:19 03/13/19 16:19 03/13/19 16:19 Results - Labs 03/13/19 17:06 03/13/19 17:06 Abnormal Lab Results - Last 24 Hours (Table) 03/13/19 03/13/19 03/13/19 Range/Units 17:06 17:06 18:29 Glucose 125 H (74-99) mg/dL Plasma Lactic Acid Hamzah 2.1 H* (0.7-2.0) mmol/L Calcium 10.3 H (8.4-10.2) mg/dL Total Protein 8.4 H (6.3-8.2) g/dL Ur Specific [place] >1.050 H (1.001-1.035) Urine Protein Trace H (Negative) Diabetes panel 03/13/19 Range/Units 17:06 Sodium 139 (137-145) mmol/L Potassium 4.4 (3.5-5.1) mmol/L Chloride 100 (98-107) mmol/L Carbon Dioxide 25 (22-30) mmol/L BUN 16 (9-20) mg/dL Creatinine 0.90 (0.66-1.25) mg/dL Glucose 125 H (74-99) mg/dL Calcium 10.3 H (8.4-10.2) mg/dL AST 38 (17-59) U/L ALT 36 (4-49) U/L Alkaline Phosphatase 84 (38-126) U/L Total Protein 8.4 H (6.3-8.2) g/dL Albumin 4.8 (3.5-5.0) g/dL Calcium panel 03/13/19 Range/Units 17:06 Calcium 10.3 H (8.4-10.2) mg/dL Albumin 4.8 (3.5-5.0) g/dL Pituitary panel 03/13/19 Range/Units 17:06 Sodium 139 (137-145) mmol/L Potassium 4.4 (3.5-5.1) mmol/L Chloride 100 (98-107) mmol/L Carbon Dioxide 25 (22-30) mmol/L BUN 16 (9-20) mg/dL Creatinine 0.90 (0.66-1.25) mg/dL Glucose 125 H (74-99) mg/dL Calcium 10.3 H (8.4-10.2) mg/dL Adrenal panel 03/13/19 Range/Units 17:06 Sodium 139 (137-145) mmol/L Potassium 4.4 (3.5-5.1) mmol/L Chloride 100 (98-107) mmol/L Carbon Dioxide 25 (22-30) mmol/L BUN 16 (9-20) mg/dL Creatinine 0.90 (0.66-1.25) mg/dL Glucose 125 H (74-99) mg/dL Calcium 10.3 H (8.4-10.2) mg/dL Total Bilirubin 0.8 (0.2-1.3) mg/dL AST 38 (17-59) U/L ALT 36 (4-49) U/L Alkaline Phosphatase 84 (38-126) U/L Total Protein 8.4 H (6.3-8.2) g/dL Albumin 4.8 (3.5-5.0) g/dL Assessment and Plan (1) Abdominal pain Current Visit: Yes Status: Acute Code(s): R10.9 - UNSPECIFIED ABDOMINAL PAIN SNOMED Code(s): 23458368 (2) Gastroenteritis Current Visit: Yes Status: Acute Code(s): K52.9 - NONINFECTIVE GASTROENTERITIS AND COLITIS, UNSPECIFIED SNOMED Code(s): 36488568 (3) Ileus Current Visit: Yes Status: Acute Code(s): K56.7 - ILEUS, UNSPECIFIED SNOMED Code(s): 764481907
[2019-03-14] MEDS ORDERED: LEVOFLOXACIN 500 MG TAB PO SCH (20:00)
--- NOTE | 2019-03-14 20:12 | P.HPIM ---
History of Present Illness H&P Date: 03/14/19 Chief Complaint: Diarrhea History of presenting complaint: This is a very pleasant [address] of [address] Chris mckeon. Chronic stable medical conditions include seizure disorder, Parkinson's disease, schizophrenia. Patient for 3 days started having multiple episodes of diarrhea. Loose. No blood. No abdominal pain. Some nausea. No fever no chills. Admitted for the same. Started on IV fluids. Computed tomography scan of the ER did show evidence of small and large bowel ileus. With no obvious obstruction otherwise. Review of systems: GEN.: Tired EYES: None HEENT: None NECK: None RESPIRATORY: None CARDIOVASCULAR: None GASTROINTESTINAL: As above GENITOURINARY: None MUSCULOSKELETAL: None LYMPHATICS: None HEMATOLOGICAL: None PSYCHIATRY: None NEUROLOGICAL: Tremors Past medical history to include: Possible seizure disorder, Parkinson's disease, possible schizophrenia Social history: Does not smoke or drink alcohol. Has a legal guardian. Lives alone Physical examination: VITAL SIGNS: 98.9, 86, 20, 155/56, height percent room air GENERAL: BMI 37.1, sitting at the edge of the bed, tired. EYES: Pupils equal. Conjunctiva normal. HEENT: External appearance of nose and ears normal, oral cavity grossly normal. NECK: JVD not raised; masses not palpable. HEART: First and second heart sounds are normal; no edema. LUNGS: Respiratory rate normal; clear to auscultation. ABDOMEN: Soft, nontender, liver spleen not palpable, no masses palpable bowel sounds hyperactive. PSYCH: Alert and oriented x3; mood and affect normal. NEUROLOGICAL: Cranial nerves grossly intact; no facial asymmetry, power and sensation grossly intact. Bradykinesia, tremors LYMPHATICS: No lymph nodes palpable in the axilla and neck INVESTIGATIONS, reviewed in the clinical context: White count 8.7 hemoglobin 15.9 platelets 231 potassium 4.4 crit 0.9 lactic acid 2.1 Computed tomography scan of the abdomen-small bowel or large bowel dilatation including suggestion of ileus Assessment: -Acute enteritis, colitis possibly suggested a. Viral in etiology. Lack of fever or white count makes bacterial less likely. empirically will try to cover the same.. -Possible chronic epilepsy disorder -Idiopathic Parkinson's disorder -Possible chronic schizophrenia -Obesity BMI 37.1 -Mild large or small bowel ileus due to infection Plan: We'll send off a stool for C. diff. Start the patient empirically on Levaquin and Flagyl 500 mg times a day. Give IV fluids. Patient be started on clear liquids. Care was discussed with the patient question were answered. Home medi cations are to be continued. Order precautions that'll get a surgical consultation. 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 no recolection of either of these History of Any Multi-Drug Resistant Organisms: None Reported Past Surgical History: No Surgical Hx Reported Additional Past Surgical History / Comment(s): Upper gi Past Anesthesia/Blood Transfusion Reactions: No Reported Reaction Additional Past Anesthesia/Blood Transfusion Reaction / Comment(s): FIRST ANESTHETIC Past Psychological History: Bipolar, Schizophrenia Additional Psychological History / Comment(s): Borderline Smoking Status: Never smoker Past Alcohol Use History: None Reported Past Drug Use History: None Reported - Past Family History Mother Family Medical History: No Reported History Medications and Allergies Home Medications Medication Instructions Recorded Confirmed Type Benztropine Mesylate [Cogentin] 2 mg PO BID 10/21/15 03/14/19 History Divalproex ER [Depakote ER] 500 mg PO TID 10/21/15 03/14/19 History amLODIPine [Norvasc] 2.5 mg PO DAILY 10/21/15 03/14/19 History Primidone [Mysoline] 50 mg PO TID 05/26/16 03/14/19 History Fluphenazine HCl [fluPHENAZine HCL] 10 mg PO BID 03/14/19 03/14/19 History Hydrochlorothiazide [Hydrodiuril] 25 mg PO DAILY 03/14/19 03/14/19 History Losartan [Cozaar] 50 mg PO DAILY 03/14/19 03/14/19 History Lurasidone HCl [Latuda] 60 mg PO DAILY 03/14/19 03/14/19 History Omeprazole 20 mg PO DAILY 03/14/19 03/14/19 History QUEtiapine FUMARATE 300 mg PO HS 03/14/19 03/14/19 History Allergies Allergy/AdvReac Type Severity Reaction Status Date / Time haloperidol [From Haldol] Allergy Unknown Unknown Verified 03/13/19 20:43 haloperidol lactate Allergy Unknown Unknown Verified 03/13/19 20:43 [From Haldol] risperidone [From Risperdal] AdvReac Unknown Unknown Verified 03/13/19 20:43 Physical Exam Vitals: Vital Signs Temp Pulse Pulse Resp BP BP Pulse Ox 03/14/19 04:51 98.6 F 65 16 115/62 93 L 03/13/19 23:12 98.4 F 03/13/19 21:14 96.4 F L 78 16 116/57 94 L 03/13/19 19:46 124/98 03/13/19 19:28 97.4 F L 103 H 16 162/104 97 03/13/19 18:41 78 16 142/73 100 03/13/19 16:19 98.9 F 86 20 155/56 100 Intake and Output 03/13/19 03/14/19 03/14/19 22:59 06:59 14:59 Intake Total 300 800 Balance 300 800 Intake: Intake, IV Titration 300 800 Amount Sodium Chloride 0.9% 1, 300 800 000 ml @ 100 mls/hr IV . Q10H ONE Rx#:[id number] Other: Voiding Method Toilet # Voids 2 5 # Bowel Movements 2 5 Weight 107.5 kg Results CBC & Chem 7: 03/13/19 17:06 03/13/19 17:06 Labs: Abnormal Lab Results - Last 24 Hours (Table) 03/13/19 03/13/19 03/13/19 Range/Units 17:06 17:06 18:29 Glucose 125 H (74-99) mg/dL Plasma Lactic Acid Hamzah 2.1 H* (0.7-2.0) mmol/L Calcium 10.3 H (8.4-10.2) mg/dL Total Protein 8.4 H (6.3-8.2) g/dL Ur Specific Dep[place]w >1.050 H (1.001-1.035) Urine Protein Trace H (Negative) Thrombosis Risk Factor Assmnt - Choose All That Apply Each Factor Represents 1 point: Age 41-60 years, Obesity (BMI >25) Other Risk Factors: No Other congenital or acquired thrombophilia - If yes, enter type in comment: No Thrombosis Risk Factor Assessment Total Risk Factor Score: 2 Thrombosis Risk Factor Assessment Level: Low Risk
[2019-03-14] MEDS ORDERED: QUEtiapine 100 MG TAB PO SCH (21:00)
[2019-03-14] MEDS ORDERED: LURASIDONE HCL 60 MG PO SCH (21:00)
[2019-03-14] MEDS ORDERED: LURASIDONE 20 MG TAB PO SCH (21:00)
[2019-03-14] MEDS: LACTATED RINGERS 1,000 ML IV SCH (21:18)
[2019-03-14] MEDS: ENOXAPARIN 40 MG/0.4 ML SYRINGE SQ SCH (21:18)
[2019-03-14] MEDS: metroNIDAZOLE 500 MG TAB PO SCH (21:19)
--- NOTE | 2019-03-14 21:51 | CONS ---
CONSULTATION DATE OF SERVICE: March 14, 2019. REQUESTING PHYSICIAN: Dr. Chris Champagne. REASON FOR CONSULTATION: Nausea, vomiting, and diarrhea of 3 days duration. HISTORY OF PRESENTING ILLNESS: The patient is a 53-year-old pleasant white male who came to the emergency room complaining of nausea, vomiting, and diarrhea for the last 3 days duration. He had multiple episodes of loose watery bowel movements anywhere from 10-15 day which are loose to watery in consistency. No blood or mucus in the stool. He did not have any associated abdominal pain. He did have several episodes of nausea vomiting, but has resolved. After coming to the hospital, feeling much better. In fact, he did not have any bowel movements so far. Stool studies have been requested but could not be done because he has no diarrhea since being in the hospital. He is on a full liquid diet, tolerating well. The nausea and vomiting also appears to have resolved. He had never had these symptoms in the past. No recent antibiotic use. No recent travel history. Last colonoscopy by me in 2017 showed a small sigmoid colon polyp and scattered diverticulosis. PAST MEDICAL HISTORY: Her past medical history is significant for seizure disorder and schizophrenia. PAST SURGICAL HISTORY: Colonoscopy in 2017. MEDICATIONS: At home include: Medications at home: Depakote, Cozaar, Latuda, Seroquel, Norvasc, carbidopa levodopa, Mysoline, Voltaren, Prolixin. ALLERGIES: HALDOL AND RESPIRDAL. SOCIAL HISTORY: No smoking. No alcohol use. FAMILY HISTORY: Unremarkable. REVIEW OF SYMPTOMS: CARDIOPULMONARY: No chest pain or shortness of breath. GENITOURINARY: No dysuria or hematuria. MUSCULOSKELETAL unremarkable. SKIN unremarkable. ENDOCRINE: Unremarkable. PSYCHIATRIC: Unremarkable. ENT/vision unremarkable. NEUROLOGICAL: Unremarkable. CONSTITUTIONAL: No recent weight loss. No fever, chills, night sweats. HEMATOLOGY unremarkable. PHYSICAL EXAMINATION: He appears comfortable. No apparent distress. VITAL SIGNS: Stable. Blood pressure is 128/85, pulse rate is 65, and temperature 98.7. HEENT examination unremarkable. Conjunctivae pink. Sclerae anicteric. Oral cavity no lesions. NECK: No JVD or lymph node enlargement. The chest was clear to auscultation. HEART: Regular rate and rhythm. ABDOMEN: Soft. Bowel sounds are positive. No organomegaly. EXTREMITIES: No pedal edema. SKIN no rashes. NEUROLOGIC: Alert and oriented x3. No focal deficits. LABS: Done today: WBC 8.7, hemoglobin 15.9, platelets normal. Basic metabolic panel is within normal limits. BUN and creatinine are normal. Stool studies are still pending. IMPRESSION: Acute onset of nausea, vomiting, diarrhea of 4 days duration most likely dealing with viral gastroenteritis. Since being in the hospital, symptoms are significantly improved. No recent antibiotic use or travel history. Last colonoscopy in 2017 showed a small colon polyp and sigmoid diverticulosis. RECOMMENDATIONS: 1. Await stool studies. 2. Continue with full liquid diet today and advance as tolerated tomorrow. 3. Antiemetics as needed. If the patient's symptoms resolve, he can be discharged home tomorrow. Thank you for this consultation. DEBRA / THAO: [id number] /
[2019-03-15] MEDS: LACTATED RINGERS 1,000 ML IV SCH ×2 (05:07→13:12)
[2019-03-15 09:10] LABS: African American GFR (CKD) >90 (>60 ml/min/1.73 sqM); Anion Gap 9 mmol/L; Blood Urea Nitrogen 10 mg/dL (9-20); Carbon Dioxide 30 mmol/L (22-30); Chloride 101 mmol/L (98-107); Glucose 96 mg/dL (74-99); Non-African American GFR(CKD) >90 (>60 ml/min/1.73 sqM); Potassium 3.7 mmol/L (3.5-5.1); Sodium 140 mmol/L (137-145)
[2019-03-15] MEDS: amLODIPine 2.5 MG TAB PO SCH (09:16)
[2019-03-15] MEDS: PANTOPRAZOLE 40 MG/10 ML VIAL IVP SCH (09:16)
[2019-03-15] MEDS: BENZTROPINE MESYLATE 1 MG TAB PO SCH (09:16)
[2019-03-15] MEDS: ENOXAPARIN 40 MG/0.4 ML SYRINGE SQ SCH (09:16)
[2019-03-15] MEDS: metroNIDAZOLE 500 MG TAB PO SCH (09:16)
[2019-03-15] MEDS: LOSARTAN 50 MG TAB PO SCH (09:16)
[2019-03-15] MEDS: HYDROCHLOROTHIAZIDE 25 MG TAB PO SCH (09:16)
[2019-03-15] MEDS: PRIMIDONE 50 MG TAB PO SCH (09:16)
[2019-03-15] MEDS: DIVALPROEX ER 500 MG TAB.ER.24H PO SCH (09:16)
--- NOTE | 2019-03-15 11:02 | P.PN ---
<Ileana Miranda A - Last Filed: 03/15/19 11:01> Subjective Progress Note Date: 03/15/19 CHIEF COMPLAINT: ileus HISTORY OF PRESENT ILLNESS: Patient examined this morning at the bedside. Patient states his diarrhea has resolved. He reports passing flatus this morning. Tolerating full liquid diet. Denies nausea or vomiting. Denies abdominal pain. C. diff negative. He is hoping to be discharged home today. PHYSICAL EXAM: VITAL SIGNS: Reviewed GENERAL: Well-developed in no acute distress. HEENT: No sclera icterus. Extraocular movements grossly intact. Moist buccal mucosa. Head is atraumatic, normocephalic. Hears conversational speech. No nasal drainage. NECK: Supple without lymphadenopathy. CHEST: Non-labored respirations and equal bilateral excursions. CARDIOVASCULAR: Regular rate with regular rhythm. Palpable 2+ radial pulses. ABDOMEN: Soft. Nondistended. Nontender. MUSCULOSKELETAL: No clubbing, cyanosis or edema. NEUROLOGIC: No focal or lateralizing signs. Cranial nerves II through XII grossly intact. Resting tremor of upper extremities noted. PSYCH: Appropriate affect. Alert and oriented to person, place and time. SKIN: Well perfused. Good skin turgor. ASSESSMENT: 1. Diarrhea x 4 days, suspected viral gastroenteritis PLAN: Advance diet to regular No surgical intervention recommended Patient stable for discharge home today from a surgical standpoint. Will defer to medicine. Nurse practitioner note has been reviewed by physician. Signing provider agrees with the documented findings, assessment, and plan of care. Objective - Vital Signs Vital signs: Vital Signs Temp 98.2 F 03/15/19 04:32 Pulse 92 03/15/19 04:32 Resp 18 03/15/19 04:32 BP 121/65 03/15/19 04:32 Pulse Ox 96 03/15/19 04:32 Intake & Output 03/14/19 03/15/19 03/15/19 18:59 06:59 18:59 Intake Total 1880 1350 Balance 1880 1350 Intake: Intake, IV Titration 900 1350 Amount Lactated Ringers 1,000 ml 1000 @ 125 mls/hr IV .Q8H CANDI Rx#:[id number] Sodium Chloride 0.9% 1, 900 350 000 ml @ 100 mls/hr IV . Q10H ONE Rx#:[id number] Oral 980 Other: Voiding Method Toilet Toilet Urinal # Voids 3 1 - Labs CBC & Chem 7: 03/13/19 17:06 03/15/19 08:18 Labs: Microbiology - Last 24 Hours (Table) 03/14/19 14:43 Stool Culture - Preliminary Stool <Afua Carolina N - Last Filed: 03/15/19 18:33> Subjective As above patient may follow up with PCP and GI as outpatient. Clear for discharge from surgical standpoint. Objective - Vital Signs Vital signs: Vital Signs Temp 98 F 03/15/19 12:16 Pulse 80 03/15/19 15:33 Resp 20 03/15/19 15:33 BP 118/76 03/15/19 12:16 Pulse Ox 98 03/15/19 12:16 Intake & Output 03/14/19 03/15/19 03/15/19 18:59 06:59 18:59 Intake Total 1880 1350 720 Balance 1880 1350 720 Intake: Intake, IV Titration 900 1350 Amount Lactated Ringers 1,000 ml 1000 @ 125 mls/hr IV .Q8H CANDI Rx#:[id number] Sodium Chloride 0.9% 1, 900 350 000 ml @ 100 mls/hr IV . Q10H ONE Rx#:[id number] Oral 980 720 Other: Voiding Method Toilet Toilet Toilet Urinal Urinal # Voids 3 1 3 - Labs CBC & Chem 7: 03/13/19 17:06 03/15/19 08:18 Labs: Microbiology - Last 24 Hours (Table) 03/14/19 14:43 Stool Culture - Preliminary Stool Assessment and Plan (1) Abdominal pain Status: Acute Code(s): R10.9 - UNSPECIFIED ABDOMINAL PAIN SNOMED Code(s): 68788851 (2) Gastroenteritis Status: Acute Code(s): K52.9 - NONINFECTIVE GASTROENTERITIS AND COLITIS, UNSPECIFIED SNOMED Code(s): 88006043 (3) Ileus Status: Acute Code(s): K56.7 - ILEUS, UNSPECIFIED SNOMED Code(s): 837592950
[2019-03-15 12:18] VITALS: BP 118/76; RESP 20; TEMP 98
[2019-03-15 13:39] VITALS: PULSE 80
--- NOTE | 2019-03-15 20:34 | PN ---
PROGRESS NOTE DATE OF DICTATION: 03/15/2019 This patient is a 53-year-old pleasant white male who was admitted to the hospital with acute onset of nausea, vomiting and diarrhea for the last 3 days' duration. He had multiple episodes of watery bowel movements, 10 to 15 a day. Since being in the hospital his symptoms have completely resolved. He was initially started on a clear liquid diet yesterday and subsequently advanced as tolerated. He is doing much better. His symptoms have completely resolved. He wants to go home. Stool studies so far were negative. C difficile toxin was negative. PHYSICAL EXAMINATION: Appears comfortable. No apparent distress. VITAL SIGNS: Stable. Blood pressure 118/76, pulse rate 68, temperature 98. HEENT examination unremarkable. Conjunctivae pink. Sclerae anicteric. Oral cavity no lesions. NECK: No JVD or lymph node enlargement. CHEST: Clear to auscultation. HEART: Regular rate and rhythm. ABDOMEN: Soft. Bowel sounds are positive. No organomegaly. EXTREMITIES: No pedal edema. SKIN: No rashes. NEUROLOGIC: Alert and oriented x3. No focal deficits. LABS: Labs from today show basic metabolic panel is within normal limits. C difficile is negative. GI antigen and Cryptosporidium are negative. IMPRESSION: Acute onset of nausea, vomiting, diarrhea, possibly viral gastroenteritis. Symptoms have resolved. Patient doing well, tolerating diet. Stool studies so far have been negative. RECOMMENDATIONS: 1. Advance diet as tolerated. 2. He can be discharged home. 3. Follow up in office as needed if he has recurrent symptoms. Thank you for this consultation. MMODL / IJN: [id number] /
--- NOTE | 2019-03-15 22:30 | P.DS ---
Providers Date of admission: 03/13/19 19:25 Expected date of discharge: 03/15/19 Attending physician: Danial Moreno Consults: 03/14/19 10:36 Consult Physician Routine Consulting Provider: Afua Carolina Consult Reason/Comments: ileus Do you want consulting provider notified?: Yes Consult Physician Routine Consulting Provider: Melly Walsh Consult Reason/Comments: diarrhea/abd pain Do you want consulting provider notified?: Yes Primary care physician: Chris Champagne [facility] Course: Chief Complaint: Diarrhea History of presenting complaint: This is a very pleasant [address] Chris mckeon. Chronic stable medical conditions include seizure disorder, Parkinson's disease, schizophrenia. Patient for 3 days started having multiple episodes of diarrhea. Loose. No blood. No abdominal pain. Some nausea. No fever no chills. Admitted for the same. Started on IV fluids. Computed tomography scan of the ER did show evidence of small and large bowel ileus. With no obvious obstruction otherwise. Admitted with acute enteritis-colitis most likely viral could not rule out a bacterial cause. Empirically put on Levaquin and Flagyl. Today-feeling much better. We back to his baseline. No further diarrhea or abdominal pain. Tolerated diet. Cleared by consultants to be discharged. Consultants: Dr. Ortiz Rebollar from general surgery Dr. Ortiz Walsh from GI Physical examination: VITAL SIGNS: 98, 68, 20, 118/76, 98% on room air GENERAL: Sitting up in bed, comfortable EYES: Pupils equal. Conjunctiva normal. HEENT: External appearance of nose and ears normal, oral cavity grossly normal. NECK: JVD not raised; masses not palpable. HEART: First and second heart sounds are normal; no edema. LUNGS: Respiratory rate normal; clear to auscultation. ABDOMEN: Soft, nontender, liver spleen not palpable, no masses palpable bowel sounds hyperactive. PSYCH: Alert and oriented x3; mood and affect normal. INVESTIGATIONS, reviewed in the clinical context: Potassium 3.7 creatinine 0.77 Stool for parasites negative, stool negative for C. diff Previous testing White count 8.7 hemoglobin 15.9 platelets 231 potassium 4.4 crit 0.9 lactic acid 2.1 Computed tomography scan of the abdomen-small bowel or large bowel dilatation including suggestion of ileus Assessment: -Acute enteritis, colitis possibly suggested a. Viral in etiology. Lack of fever or white count makes bacterial less likely. -Possible chronic epilepsy disorder -Idiopathic Parkinson's disorder -Possible chronic schizophrenia -Obesity BMI 37.1 -Mild large and small bowel ileus due to infection Disposition: Home Patient Condition at Discharge: Good Plan - Discharge Summary Discharge Rx Participant: No New Discharge Prescriptions: New metroNIDAZOLE [Flagyl] 500 mg PO TID #6 tab Levofloxacin [Levaquin] 500 mg PO Q24H #2 tab Continue Divalproex ER [Depakote ER] 500 mg PO TID Benztropine Mesylate [Cogentin] 2 mg PO BID amLODIPine [Norvasc] 2.5 mg PO DAILY Primidone [Mysoline] 50 mg PO TID QUEtiapine FUMARATE 300 mg PO HS Omeprazole 20 mg PO DAILY Lurasidone HCl [Latuda] 60 mg PO DAILY Losartan [Cozaar] 50 mg PO DAILY Hydrochlorothiazide [Hydrodiuril] 25 mg PO DAILY Fluphenazine HCl [fluPHENAZine HCL] 10 mg PO BID Discharge Medication List Benztropine Mesylate [Cogentin] 2 mg PO BID 10/21/15 [History] Divalproex ER [Depakote ER] 500 mg PO TID 10/21/15 [History] amLODIPine [Norvasc] 2.5 mg PO DAILY 10/21/15 [History] Primidone [Mysoline] 50 mg PO TID 05/26/16 [History] Fluphenazine HCl [fluPHENAZine HCL] 10 mg PO BID 03/14/19 [History] Hydrochlorothiazide [Hydrodiuril] 25 mg PO DAILY 03/14/19 [History] Losartan [Cozaar] 50 mg PO DAILY 03/14/19 [History] Lurasidone HCl [Latuda] 60 mg PO DAILY 03/14/19 [History] Omeprazole 20 mg PO DAILY 03/14/19 [History] QUEtiapine FUMARATE 300 mg PO HS 03/14/19 [History] Levofloxacin [Levaquin] 500 mg PO Q24H #2 tab 03/15/19 [Rx] metroNIDAZOLE [Flagyl] 500 mg PO TID #6 tab 03/15/19 [Rx] Follow up Appointment(s)/Referral(s): Chris Champagne MD [Primary Care Provider] - 03/22/19 2:30 pm Patient Instructions/Handouts: Metronidazole (By mouth), Levofloxacin (By mouth), Constipation (DC), Acute Abdominal Pain (DC), Ileus (DC) Discharge Disposition: HOME SELF-CARE
== END 2019-03-15 15:45 | disposition home or self-care (01) | DRG 392 ==
LOC: EC 16:10 → 5NMEDONC 19:25
PROVIDERS: ADMIT Hospitalist; ATTEND Hospitalist
DX: A08.4 Viral intestinal infection, unspecified (principal); K56.7 Ileus, unspecified; E66.9 Obesity, unspecified; F20.9 Schizophrenia, unspecified; F31.9 Bipolar disorder, unspecified; G20 Parkinson's disease; G40.909 Epilepsy, unspecified, not intractable, without status epilepticus; K57.30 Diverticulosis of large intestine without perforation or abscess without bleeding; Z68.37 Body mass index [BMI] 37.0-37.9, adult; Z79.899 Other long term (current) drug therapy; Z86.010 Personal history of colon polyps
CPT/HCPCS: 36415; 74177; 80048; 80053; 81003; 82150; 83605; 83690; 85025; 87045; 87046; 87324; 87328; 87329; 96361; 96374; 96375; 99285

== ENCOUNTER 2020-12-07 14:39 | Emergency (ER) | payer MEDICARE, OTHER ==
[2020-12-07 15:53] VITALS: TEMP 98.2
--- NOTE | 2020-12-07 16:57 | ED ---
General Adult HPI - General Chief complaint: Overdose Stated complaint: Accidental Overdose Time Seen by Provider: 12/07/20 16:45 Source: patient, RN notes reviewed, old records reviewed Mode of arrival: ambulatory Limitations: no limitations - History of Present Illness Initial comments: 55-year-old male that presents to the emergency room with complaints of taking his noon medications to early today. Patient is unable to tell me which medications he took. He states that he is very drowsy and he just needs to sleep it off. He denies any pain. He states that he has no nausea, vomiting, diarrhea or abdominal pain. He is able to follow commands but is very drowsy. His vital signs are stable. -: hour(s) (4) Severity scale (1-10): 0 Associated Symptoms: denies other symptoms Treatments Prior to Arrival: none - Related Data Home Medications Medication Instructions Recorded Confirmed Benztropine Mesylate [Cogentin] 2 mg PO BID 10/21/15 03/14/19 Divalproex ER [Depakote ER] 500 mg PO TID 10/21/15 03/14/19 amLODIPine [Norvasc] 2.5 mg PO DAILY 10/21/15 03/14/19 Primidone [Mysoline] 50 mg PO TID 05/26/16 03/14/19 Losartan [Cozaar] 50 mg PO DAILY 03/14/19 03/14/19 Lurasidone HCl [Latuda] 60 mg PO DAILY 03/14/19 03/14/19 Omeprazole 20 mg PO DAILY 03/14/19 03/14/19 QUEtiapine FUMARATE 300 mg PO HS 03/14/19 03/14/19 fluPHENAZine HCl [fluPHENAZine HCL] 10 mg PO BID 03/14/19 03/14/19 hydroCHLOROthiazide [Hydrodiuril] 25 mg PO DAILY 03/14/19 03/14/19 Previous Rx's Medication Instructions Recorded Levofloxacin [Levaquin] 500 mg PO Q24H #2 tab 03/15/19 metroNIDAZOLE [Flagyl] 500 mg PO TID #6 tab 03/15/19 Allergies Allergy/AdvReac Type Severity Reaction Status Date / Time haloperidol [From Haldol] Allergy Unknown Unknown Verified 03/13/19 20:43 haloperidol lactate Allergy Unknown Unknown Verified 03/13/19 20:43 [From Haldol] risperidone [From Risperdal] AdvReac Unknown Unknown Verified 03/13/19 20:43 Review of Systems ROS Statement: Those systems with pertinent positive or pertinent negative responses have been documented in the HPI. ROS Other: All systems not noted in ROS Statement are negative. 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 no recolection of either of these History of Any Multi-Drug Resistant Organisms: None Reported Past Surgical History: No Surgical Hx Reported Additional Past Surgical History / Comment(s): Upper gi Past Anesthesia/Blood Transfusion Reactions: No Reported Reaction Additional Past Anesthesia/Blood Transfusion Reaction / Comment(s): FIRST ANESTHETIC Past Psychological History: Bipolar, Schizophrenia Past Alcohol Use History: None Reported Past Drug Use History: None Reported - Past Family History Mother Family Medical History: No Reported History General Exam Limitations: no limitations General appearance: alert, in no apparent distress Head exam: Present: atraumatic, normocephalic, normal inspection Eye exam: Present: normal appearance, EOMI. Absent: scleral icterus, conjunctival injection, periorbital swelling ENT exam: Present: normal exam, normal oropharynx, mucous membranes dry Neck exam: Present: normal inspection, full ROM. Absent: tenderness, meningismus, lymphadenopathy Respiratory exam: Present: normal lung sounds bilaterally. Absent: respiratory distress, wheezes, rales, rhonchi, stridor, accessory muscle use Cardiovascular Exam: Present: regular rate, normal rhythm, normal heart sounds. Absent: systolic murmur, diastolic murmur, rubs, gallop, clicks GI/Abdominal exam: Present: soft, normal bowel sounds. Absent: distended, tenderness, guarding, rebound, rigid Back exam: Present: normal inspection, full ROM. Absent: tenderness, CVA tenderness (R), CVA tenderness (L), rash noted Neurological exam: Present: alert, oriented X3 Expanded Patient oriented to: Present: person, place, time Speech: Present: fluid speech Cerebellar function: Finger to Nose: Normal, Heel to Jauregui: Normal Motor strength exam: RUE: 5, LUE: 5, RLE: 5, LLE: 5 Eye Response: (4) open spontaneously Motor Response: (6) obeys commands Verbal Response: (5) oriented Amita Total: 15 Psychiatric exam: Present: normal affect, normal mood Skin exam: Present: warm, dry, intact, normal color. Absent: rash, cyanosis, diaphoretic, petechiae, pallor Course Vital Signs 12/07/20 12/07/20 15:48 18:38 Temperature 98.2 F Pulse Rate 67 74 Respiratory 18 20 Rate Blood Pressure 107/75 136/64 O2 Sat by Pulse 99 96 Oximetry Medical Decision Making - Medical Decision Making Patient is awake and alert and following commands. I did review his previous medication list. He did check his valproic acid level which is 85.7. He has had no nausea, vomiting or abdominal pain in the emergency room his abdomen is soft and nontender. His vital signs are stable. I did direct patient to discuss with his caregiver concerns about medication administration to help him remember which pills to take when to prevent any confusion. Case discussed with Dr. Fragoso. - Lab Data Lab Results 12/07/20 Range/Units 17:40 Valproic Acid 85.7 ug/mL Disposition Clinical Impression: Medication care plan discussed with patient Disposition: HOME SELF-CARE Condition: Good Additional Instructions: Discussed with your caregiver methods to prevent confusion with taking your medication. Return to the emergency room with any new or worsening symptoms. Is patient prescribed a controlled substance at d/c from ED?: No Referrals: Chris Champagne MD [Primary Care Provider] - 1-2 days Time of Disposition: 18:43
[2020-12-07 18:39] VITALS: BP 136/64; PULSE 74; RESP 20
== END 2020-12-07 19:14 | disposition home or self-care (01) ==
LOC: EC 14:39
DX: Z71.89 Other specified counseling (principal); F31.9 Bipolar disorder, unspecified; F20.9 Schizophrenia, unspecified; Z79.899 Other long term (current) drug therapy
CPT/HCPCS: 36415; 80164; 99283

== ENCOUNTER 2020-12-09 14:53 | Inpatient (IN) | payer MEDICARE, OTHER ==
--- NOTE | 2020-12-09 16:46 | XR ---
EXAMINATION TYPE: XR chest 2V DATE OF EXAM: 12/09/2020 COMPARISON: 01/16/2012 INDICATION: Cough TECHNIQUE: Frontal and lateral views of the chest are obtained. FINDINGS: The heart size is upper limits of normal. The pulmonary vasculature is normal. The lungs are clear. IMPRESSION: 1. No acute pulmonary process.
--- NOTE | 2020-12-09 16:59 | ED ---
General Adult HPI - General Chief complaint: Psychiatric Symptoms Stated complaint: Mental Health Time Seen by Provider: 12/09/20 15:42 Source: patient, RN notes reviewed, old records reviewed Mode of arrival: ambulatory Limitations: no limitations - History of Present Illness Initial comments: I evaluated the patient when he was placed in a room. Patient is a 55-year-old male with a past medical history remarkable for paranoid schizophrenia, seizure disorder who has a legal guardian who presents emergency Department over concern for psychiatric evaluation. Appears that they're concerned for possible delusions for the patient. He has been acting strangely, sitting his meds are wrong, complaining of being weak but the at baseline otherwise, acting strangely. Family and guardian became concerned. Patient's psychiatrist does not believe that he is taking his medications. They brought him to the emergency department for evaluation. Patient currently has no acute complaints other than a mild cough as well as stating that his legs feel "heavy" intermittently. He is able to move them without difficulty mildly speak. Otherwise has no acute complaint at this time. Denies any suicidal or homicidal ideations, attempts, plans. Denies any visual or auditory hallucinations. He keeps perseverating on his medications why speak with him, however cannot convey his thoughts meaningfully. He denies any chest pain, abdominal pain, nausea, v omiting. States he is thirsty. He has no other acute complaints at this time. - Related Data Home Medications Medication Instructions Recorded Confirmed Benztropine Mesylate [Cogentin] 2 mg PO BID 10/21/15 12/09/20 Divalproex ER [Depakote ER] 500 mg PO TID 10/21/15 12/09/20 amLODIPine [Norvasc] 2.5 mg PO DAILY 10/21/15 12/09/20 Primidone [Mysoline] 50 mg PO TID 05/26/16 12/09/20 Losartan [Cozaar] 50 mg PO DAILY 03/14/19 12/09/20 Lurasidone HCl [Latuda] 60 mg PO HS 03/14/19 12/09/20 QUEtiapine FUMARATE 300 mg PO HS 03/14/19 12/09/20 fluPHENAZine HCl [fluPHENAZine HCL] 10 mg PO BID 03/14/19 12/09/20 Chlorthalidone 50 mg PO DAILY 12/09/20 12/09/20 Cholecalciferol [Vitamin D3 (25 25 mcg PO DAILY 12/09/20 12/09/20 Mcg = 1000 Iu)] Furosemide [Lasix] 40 mg PO DAILY 12/09/20 12/09/20 Omeprazole 40 mg PO DAILY 12/09/20 12/09/20 Pravastatin Sodium [Pravachol] 20 mg PO DAILY 12/09/20 12/09/20 Allergies Allergy/AdvReac Type Severity Reaction Status Date / Time haloperidol [From Haldol] Allergy Unknown Unknown Verified 12/09/20 16:53 haloperidol lactate Allergy Unknown Unknown Verified 12/09/20 16:53 [From Haldol] risperidone [From Risperdal] AdvReac Unknown Unknown Verified 12/09/20 16:53 Review of Systems ROS Statement: Those systems with pertinent positive or pertinent negative responses have been documented in the HPI. Review of Systems: CONST: Denies fever EYES: Denies blurry vision ENT: Denies nasal congestion C/V: Denies Chest pain RESP: Endorses cough GI: Denies abdominal pain : Denies dysuria SKIN: Denies rash. MSK: Denies joint pain. NEURO: Denies headache PSYCH: Denies suicidal and homicidal ideations/plans/attempts. Denies visual or auditory hallucinations. ROS Other: All systems not noted in ROS Statement are negative. 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 no recolection of either of these History of Any Multi-Drug Resistant Organisms: None Reported Past Surgical History: No Surgical Hx Reported Additional Past Surgical History / Comment(s): Upper gi Past Anesthesia/Blood Transfusion Reactions: No Reported Reaction Additional Past Anesthesia/Blood Transfusion Reaction / Comment(s): FIRST ANEST HETIC Past Psychological History: Bipolar, Schizophrenia Smoking Status: Never smoker Past Alcohol Use History: None Reported Past Drug Use History: None Reported - Past Family History Mother Family Medical History: No Reported History General Exam - General Exam Comments Initial Comments: General: Appears in no acute distress. HEAD: Normal with no signs of head trauma. EYES: PERRLA, EOMI, conjunctiva normal, no discharge. ENT: Hearing grossly intact, normal oropharynx. RESPIRATORY: Clear breath sounds bilaterally. No wheezes, rales, or rhonchi. C/V: Regular rate and rhythm. S1 and S2 auscultated, no edema, peripheral pulses 2+ and intact throughout ABD: Abd is soft, nontender, nondistended EXT: Normal range of motion, no obvious deformity SKIN: No rashes or lesions observed on exposed skin. NEURO: Alert and oriented 4. Cranial nerves II through XII are intact. Patient is no focal sensory strength deficits. 5 out of 5 strength in the bi lateral lower extremities bilateral upper extremity is. Cerebellar function appears to be intact as evident by normal finger nose testing. Patient does have mild tremors, which she states are normal. NIH is 0. GCS is 15. Limitations: no limitations Course Vital Signs 12/09/20 12/09/20 12/09/20 15:28 18:48 21:00 Temperature 97.0 F L 98.4 F Pulse Rate 103 H 95 95 Respiratory 20 18 20 Rate Blood Pressure 93/62 121/68 105/68 O2 Sat by Pulse 94 L 95 95 Oximetry Medical Decision Making - Medical Decision Making Based on the patient's presentation and physical exam, I would like to obtain baseline laboratory studies, EKG, chest x-ray as well as a Covid swab on the patient. Patient's guardian presents and states that they do not believe that brian hills is taking his medications. Psychiatry is also believes he is not taking his medications. I believe that after medical clearance, he will require psychiatric evaluation. There were in agreement this plan. Patient's EKG shows no signs of acute ischemia. Chest x-ray shows no acute cardiopulmonary process. Laboratory studies are remarkable for a hyponatremia of 121 which is likely pseudohyponatremia as the patient is hyperglycemic to 640 with no known history of diabetes. Patient's hypochloremic to 70. Bicarb is elevated to 34. Patient is an AK I with a creatinine of 1.27. Urinalysis is remarkable for 4+ glucose and 1+ ketones. Acetone is positive. Covid is negative. UDS positive for barbiturates. ABG was also ordered and was remarkable for a pH of 7.43, pCO2 of 59 and HCO3 of 38. Patient does not have an anion gap. Based on patient's laboratory studies, I'm concerned for newly Diagnosed diabetes mellitus as well as what appears to be HHS. I spoke with the patient's guardian, Janusz, who's phone numbers in the chart and explained i would like to have him admitted to the hospital and psychiatry can evaluate him and the patient basis. He was in agreement this plan. The patient's HHS, I did speak with both Dr. Foley and Dr. Miller. Dr. rodríguez are the patient on an insulin drip and he will be bolus multiple boluses of normal saline. The decision was made to admit the patient to 3 S. due to the insulin drip. Dr. Miller 9 believe that the patient is not in need of an ICU bed at this point. Patient was therefore admitted to the hospital in serious condition. Psychiatry was consulted to evaluate the patient. - Lab Data Result diagrams: 12/09/20 19:32 12/09/20 19:32 Lab Results 12/09/20 12/09/20 12/09/20 Range/Units 17:02 17:02 17:02 WBC 7.5 (3.8-10.6) k/uL RBC 5.01 (4.30-5.90) m/uL Hgb 16.1 (13.0-17.5) gm/dL Hct 46.9 (39.0-53.0) % MCV 93.7 (80.0-100.0) fL MCH 32.2 (25.0-35.0) pg MCHC 34.4 (31.0-37.0) g/dL RDW 13.3 (11.5-15.5) % Plt Count 245 (150-450) k/uL MPV 8.4 Neutrophils % 62 % Lymphocytes % 30 % Monocytes % 7 % Eosinophils % 1 % Basophils % 0 % Neutrophils # 4.6 (1.3-7.7) k/uL Lymphocytes # 2.2 (1.0-4.8) k/uL Monocytes # 0.5 (0-1.0) k/uL Eosinophils # 0.0 (0-0.7) k/uL Basophils # 0.0 (0-0.2) k/uL VBG pH (7.31-7.41) VBG pCO2 (37-51) mmHg VBG HCO3 (24-28) mmol/L Sodium 121 L (137-145) mmol/L Potassium 3.6 (3.5-5.1) mmol/L Chloride 70 L* (98-107) mmol/L Carbon Dioxide 34 H (22-30) mmol/L Anion Gap 17 mmol/L BUN 38 H (9-20) mg/dL Creatinine 1.27 H (0.66-1.25) mg/dL Est GFR (CKD-EPI)AfAm 73 (>60 ml/min/1.73 sqM) Est GFR (CKD-EPI)NonAf 63 (>60 ml/min/1.73 sqM) Glucose 648 H* (74-99) mg/dL POC Glucose (mg/dL) (75-99) mg/dL POC Glu Pulp House Supervisor ID Osmolality ([phone]) mosm/kg Plasma Lactic Acid Hamzah (0.7-2.0) mmol/L Calcium 10.5 H (8.4-10.2) mg/dL Phosphorus (2.5-4.5) mg/dL Magnesium 2.2 (1.6-2.3) mg/dL Total Bilirubin 0.8 (0.2-1.3) mg/dL AST 33 (17-59) U/L ALT 36 (4-49) U/L Alkaline Phosphatase 120 (38-126) U/L Total Protein 8.0 (6.3-8.2) g/dL Albumin 4.7 (3.5-5.0) g/dL Urine Color Urine Appearance (Clear) Urine pH (5.0-8.0) Ur Specific Roslyn (1.001-1.035) Urine Protein (Negative) Urine Glucose (UA) (Negative) Urine Ketones (Negative) Urine Blood (Negative) Urine Nitrite (Negative) Urine Bilirubin (Negative) Urine Urobilinogen (<2.0) mg/dL Ur Leukocyte Esterase (Negative) Urine Opiates Screen (NotDetected) Ur Oxycodone Screen (NotDetected) Urine Methadone Screen (NotDetected) Ur Propoxyphene Screen (NotDetected) Ur Barbiturates Screen (NotDetected) U Tricyclic Antidepress (NotDetected) Ur Phencyclidine Scrn (NotDetected) Ur Amphetamines Screen (NotDetected) U Methamphetamines Scrn (NotDetected) U Benzodiazepines Scrn (NotDetected) Urine Cocaine Screen (NotDetected) U Marijuana (THC) Screen (NotDetected) Serum Alcohol <10 mg/dL Acetone, Qual (Negative) Coronavirus (PCR) Not Detected (Not Detectd) 12/09/20 12/09/20 12/09/20 Range/Units 17:18 17:18 18:08 WBC (3.8-10.6) k/uL RBC (4.30-5.90) m/uL Hgb (13.0-17.5) gm/dL Hct (39.0-53.0) % MCV (80.0-100.0) fL MCH (25.0-35.0) pg MCHC (31.0-37.0) g/dL RDW (11.5-15.5) % Plt Count (150-450) k/uL MPV Neutrophils % % Lymphocytes % % Monocytes % % Eosinophils % % Basophils % % Neutrophils # (1.3-7.7) k/uL Lymphocytes # (1.0-4.8) k/uL Monocytes # (0-1.0) k/uL Eosinophils # (0-0.7) k/uL Basophils # (0-0.2) k/uL VBG pH (7.31-7.41) VBG pCO2 (37-51) mmHg VBG HCO3 (24-28) mmol/L Sodium (137-145) mmol/L Potassium (3.5-5.1) mmol/L Chloride (98-107) mmol/L Carbon Dioxide (22-30) mmol/L Anion Gap mmol/L BUN (9-20) mg/dL Creatinine (0.66-1.25) mg/dL Est GFR (CKD-EPI)AfAm (>60 ml/min/1.73 sqM) Est GFR (CKD-EPI)NonAf (>60 ml/min/1.73 sqM) Glucose (74-99) mg/dL POC Glucose (mg/dL) (75-99) mg/dL POC Glu Pulp House Supervisor ID Osmolality 302 H (280-301) mosm/kg Plasma Lactic Acid Hamzah (0.7-2.0) mmol/L Calcium (8.4-10.2) mg/dL Phosphorus (2.5-4.5) mg/dL Magnesium (1.6-2.3) mg/dL Total Bilirubin (0.2-1.3) mg/dL AST (17-59) U/L ALT (4-49) U/L Alkaline Phosphatase (38-126) U/L Total Protein (6.3-8.2) g/dL Albumin (3.5-5.0) g/dL Urine Color Light Yellow Urine Appearance Clear (Clear) Urine pH 6.0 (5.0-8.0) Ur Specific Roslyn 1.021 (1.001-1.035) Urine Protein Negative (Negative) Urine Glucose (UA) 4+ H (Negative) Urine Ketones 1+ H (Negative) Urine Blood Negative (Negative) Urine Nitrite Negative (Negative) Urine Bilirubin Negative (Negative) Urine Urobilinogen <2.0 (<2.0) mg/dL Ur Leukocyte Esterase Negative (Negative) Urine Opiates Screen Not Detected (NotDetected) Ur Oxycodone Screen Not Detected (NotDetected) Urine Methadone Screen Not Detected (NotDetected) Ur Propoxyphene Screen Not Detected (NotDetected) Ur Barbiturates Screen Detected H (NotDetected) U Tricyclic Antidepress Not Detected (NotDetected) Ur Phencyclidine Scrn Not Detected (NotDetected) Ur Amphetamines Screen Not Detected (NotDetected) U Methamphetamines Scrn Not Detected (NotDetected) U Benzodiazepines Scrn Not Detected (NotDetected) Urine Cocaine Screen Not Detected (NotDetected) U Marijuana (THC) Screen Not Detected (NotDetected) Serum Alcohol mg/dL Acetone, Qual (Negative) Coronavirus (PCR) (Not Detectd) 12/09/20 12/09/20 12/09/20 Range/Units 18:08 18:08 18:08 WBC (3.8-10.6) k/uL RBC (4.30-5.90) m/uL Hgb (13.0-17.5) gm/dL Hct (39.0-53.0) % MCV (80.0-100.0) fL MCH (25.0-35.0) pg MCHC (31.0-37.0) g/dL RDW (11.5-15.5) % Plt Count (150-450) k/uL MPV Neutrophils % % Lymphocytes % % Monocytes % % Eosinophils % % Basophils % % Neutrophils # (1.3-7.7) k/uL Lymphocytes # (1.0-4.8) k/uL Monocytes # (0-1.0) k/uL Eosinophils # (0-0.7) k/uL Basophils # (0-0.2) k/uL VBG pH 7.43 H (7.31-7.41) VBG pCO2 59 H (37-51) mmHg VBG HCO3 38 H (24-28) mmol/L Sodium (137-145) mmol/L Potassium (3.5-5.1) mmol/L Chloride (98-107) mmol/L Carbon Dioxide (22-30) mmol/L Anion Gap mmol/L BUN (9-20) mg/dL Creatinine (0.66-1.25) mg/dL Est GFR (CKD-EPI)AfAm (>60 ml/min/1.73 sqM) Est GFR (CKD-EPI)NonAf (>60 ml/min/1.73 sqM) Glucose (74-99) mg/dL POC Glucose (mg/dL) (75-99) mg/dL POC Glu Pulp House Supervisor ID Osmolality ([phone]) mosm/kg Plasma Lactic Acid Hamzah 1.8 (0.7-2.0) mmol/L Calcium (8.4-10.2) mg/dL Phosphorus (2.5-4.5) mg/dL Magnesium (1.6-2.3) mg/dL Total Bilirubin (0.2-1.3) mg/dL AST (17-59) U/L ALT (4-49) U/L Alkaline Phosphatase (38-126) U/L Total Protein (6.3-8.2) g/dL Albumin (3.5-5.0) g/dL Urine Color Urine Appearance (Clear) Urine pH (5.0-8.0) Ur Specific Roslyn (1.001-1.035) Urine Protein (Negative) Urine Glucose (UA) (Negative) Urine Ketones (Negative) Urine Blood (Negative) Urine Nitrite (Negative) Urine Bilirubin (Negative) Urine Urobilinogen (<2.0) mg/dL Ur Leukocyte Esterase (Negative) Urine Opiates Screen (NotDetected) Ur Oxycodone Screen (NotDetected) Urine Methadone Screen (NotDetected) Ur Propoxyphene Screen (NotDetected) Ur Barbiturates Screen (NotDetected) U Tricyclic Antidepress (NotDetected) Ur Phencyclidine Scrn (NotDetected) Ur Amphetamines Screen (NotDetected) U Methamphetamines Scrn (NotDetected) U Benzodiazepines Scrn (NotDetected) Urine Cocaine Screen (NotDetected) U Marijuana (THC) Screen (NotDetected) Serum Alcohol mg/dL Acetone, Qual Positive (Negative) Coronavirus (PCR) (Not Detectd) 12/09/20 12/09/20 12/09/20 Range/Units 19:32 19:32 19:32 WBC 7.6 (3.8-10.6) k/uL RBC 4.66 (4.30-5.90) m/uL Hgb 14.7 (13.0-17.5) gm/dL Hct 43.7 (39.0-53.0) % MCV 93.7 (80.0-100.0) fL MCH 31.5 (25.0-35.0) pg MCHC 33.6 (31.0-37.0) g/dL RDW 13.3 (11.5-15.5) % Plt Count 230 (150-450) k/uL MPV 8.4 Neutrophils % 56 % Lymphocytes % 35 % Monocytes % 6 % Eosinophils % 1 % Basophils % 0 % Neutrophils # 4.2 (1.3-7.7) k/uL Lymphocytes # 2.7 (1.0-4.8) k/uL Monocytes # 0.5 (0-1.0) k/uL Eosinophils # 0.0 (0-0.7) k/uL Basophils # 0.0 (0-0.2) k/uL VBG pH 7.44 H (7.31-7.41) VBG pCO2 53 H (37-51) mmHg VBG HCO3 35 H (24-28) mmol/L Sodium 120 L (137-145) mmol/L Potassium 3.2 L (3.5-5.1) mmol/L Chloride 76 L (98-107) mmol/L Carbon Dioxide 30 (22-30) mmol/L Anion Gap 14 mmol/L BUN 39 H (9-20) mg/dL Creatinine 1.04 (0.66-1.25) mg/dL Est GFR (CKD-EPI)AfAm >90 (>60 ml/min/1.73 sqM) Est GFR (CKD-EPI)NonAf 81 (>60 ml/min/1.73 sqM) Glucose 530 H* (74-99) mg/dL POC Glucose (mg/dL) (75-99) mg/dL POC Glu Pulp House Supervisor ID Osmolality ([phone]) mosm/kg Plasma Lactic Acid Hamzah (0.7-2.0) mmol/L Calcium (8.4-10.2) mg/dL Phosphorus 3.0 (2.5-4.5) mg/dL Magnesium (1.6-2.3) mg/dL Total Bilirubin (0.2-1.3) mg/dL AST (17-59) U/L ALT (4-49) U/L Alkaline Phosphatase (38-126) U/L Total Protein (6.3-8.2) g/dL Albumin (3.5-5.0) g/dL Urine Color Urine Appearance (Clear) Urine pH (5.0-8.0) Ur Specific Roslyn (1.001-1.035) Urine Protein (Negative) Urine Glucose (UA) (Negative) Urine Ketones (Negative) Urine Blood (Negative) Urine Nitrite (Negative) Urine Bilirubin (Negative) Urine Urobilinogen (<2.0) mg/dL Ur Leukocyte Esterase (Negative) Urine Opiates Screen (NotDetected) Ur Oxycodone Screen (NotDetected) Urine Methadone Screen (NotDetected) Ur Propoxyphene Screen (NotDetected) Ur Barbiturates Screen (NotDetected) U Tricyclic Antidepress (NotDetected) Ur Phencyclidine Scrn (NotDetected) Ur Amphetamines Screen (NotDetected) U Methamphetamines Scrn (NotDetected) U Benzodiazepines Scrn (NotDetected) Urine Cocaine Screen (NotDetected) U Marijuana (THC) Screen (NotDetected) Serum Alcohol mg/dL Acetone, Qual (Negative) Coronavirus (PCR) (Not Detectd) 12/09/20 12/09/20 12/09/20 Range/Units 20:07 20:56 21:30 WBC (3.8-10.6) k/uL RBC (4.30-5.90) m/uL Hgb (13.0-17.5) gm/dL Hct (39.0-53.0) % MCV (80.0-100.0) fL MCH (25.0-35.0) pg MCHC (31.0-37.0) g/dL RDW (11.5-15.5) % Plt Count (150-450) k/uL MPV Neutrophils % % Lymphocytes % % Monocytes % % Eosinophils % % Basophils % % Neutrophils # (1.3-7.7) k/uL Lymphocytes # (1.0-4.8) k/uL Monocytes # (0-1.0) k/uL Eosinophils # (0-0.7) k/uL Basophils # (0-0.2) k/uL VBG pH (7.31-7.41) VBG pCO2 (37-51) mmHg VBG HCO3 (24-28) mmol/L Sodium (137-145) mmol/L Potassium (3.5-5.1) mmol/L Chloride (98-107) mmol/L Carbon Dioxide (22-30) mmol/L Anion Gap mmol/L BUN (9-20) mg/dL Creatinine (0.66-1.25) mg/dL Est GFR (CKD-EPI)AfAm (>60 ml/min/1.73 sqM) Est GFR (CKD-EPI)NonAf (>60 ml/min/1.73 sqM) Glucose (74-99) mg/dL POC Glucose (mg/dL) >600 H 533 H 583 H (75-99) mg/dL POC Glu Pulp House Supervisor ID Zion, Christy Zion, Christy Branch, Daniel Osmolality ([phone]) mosm/kg Plasma Lactic Acid Hamzah (0.7-2.0) mmol/L Calcium (8.4-10.2) mg/dL Phosphorus (2.5-4.5) mg/dL Magnesium (1.6-2.3) mg/dL Total Bilirubin (0.2-1.3) mg/dL AST (17-59) U/L ALT (4-49) U/L Alkaline Phosphatase (38-126) U/L Total Protein (6.3-8.2) g/dL Albumin (3.5-5.0) g/dL Urine Color Urine Appearance (Clear) Urine pH (5.0-8.0) Ur Specific Roslyn (1.001-1.035) Urine Protein (Negative) Urine Glucose (UA) (Negative) Urine Ketones (Negative) Urine Blood (Negative) Urine Nitrite (Negative) Urine Bilirubin (Negative) Urine Urobilinogen (<2.0) mg/dL Ur Leukocyte Esterase (Negative) Urine Opiates Screen (NotDetected) Ur Oxycodone Screen (NotDetected) Urine Methadone Screen (NotDetected) Ur Propoxyphene Screen (NotDetected) Ur Barbiturates Screen (NotDetected) U Tricyclic Antidepress (NotDetected) Ur Phencyclidine Scrn (NotDetected) Ur Amphetamines Screen (NotDetected) U Methamphetamines Scrn (NotDetected) U Benzodiazepines Scrn (NotDetected) Urine Cocaine Screen (NotDetected) U Marijuana (THC) Screen (NotDetected) Serum Alcohol mg/dL Acetone, Qual (Negative) Coronavirus (PCR) (Not Detectd) 12/09/20 Range/Units 22:34 WBC (3.8-10.6) k/uL RBC (4.30-5.90) m/uL Hgb (13.0-17.5) gm/dL Hct (39.0-53.0) % MCV (80.0-100.0) fL MCH (25.0-35.0) pg MCHC (31.0-37.0) g/dL RDW (11.5-15.5) % Plt Count (150-450) k/uL MPV Neutrophils % % Lymphocytes % % Monocytes % % Eosinophils % % Basophils % % Neutrophils # (1.3-7.7) k/uL Lymphocytes # (1.0-4.8) k/uL Monocytes # (0-1.0) k/uL Eosinophils # (0-0.7) k/uL Basophils # (0-0.2) k/uL VBG pH (7.31-7.41) VBG pCO2 (37-51) mmHg VBG HCO3 (24-28) mmol/L Sodium (137-145) mmol/L Potassium (3.5-5.1) mmol/L Chloride (98-107) mmol/L Carbon Dioxide (22-30) mmol/L Anion Gap mmol/L BUN (9-20) mg/dL Creatinine (0.66-1.25) mg/dL Est GFR (CKD-EPI)AfAm (>60 ml/min/1.73 sqM) Est GFR (CKD-EPI)NonAf (>60 ml/min/1.73 sqM) Glucose (74-99) mg/dL POC Glucose (mg/dL) 440 H (75-99) mg/dL POC Glu Pulp House Supervisor ID Christy Donovan Osmolality (280-301) mosm/kg Plasma Lactic Acid Hamzah (0.7-2.0) mmol/L Calcium (8.4-10.2) mg/dL Phosphorus (2.5-4.5) mg/dL Magnesium (1.6-2.3) mg/dL Total Bilirubin (0.2-1.3) mg/dL AST (17-59) U/L ALT (4-49) U/L Alkaline Phosphatase (38-126) U/L Total Protein (6.3-8.2) g/dL Albumin (3.5-5.0) g/dL Urine Color Urine Appearance (Clear) Urine pH (5.0-8.0) Ur Specific Roslyn (1.001-1.035) Urine Protein (Negative) Urine Glucose (UA) (Negative) Urine Ketones (Negative) Urine Blood (Negative) Urine Nitrite (Negative) Urine Bilirubin (Negative) Urine Urobilinogen (<2.0) mg/dL Ur Leukocyte Esterase (Negative) Urine Opiates Screen (NotDetected) Ur Oxycodone Screen (NotDetected) Urine Methadone Screen (NotDetected) Ur Propoxyphene Screen (NotDetected) Ur Barbiturates Screen (NotDetected) U Tricyclic Antidepress (NotDetected) Ur Phencyclidine Scrn (NotDetected) Ur Amphetamines Screen (NotDetected) U Methamphetamines Scrn (NotDetected) U Benzodiazepines Scrn (NotDetected) Urine Cocaine Screen (NotDetected) U Marijuana (THC) Screen (NotDetected) Serum Alcohol mg/dL Acetone, Qual (Negative) Coronavirus (PCR) (Not Detectd) - EKG Data -: EKG Interpreted by Me EKG Comments: 12-lead Electrocardiogram Interpretation Note EKG was reviewed and interpreted by myself. 12-lead ECG performed at 1705 is interpreted by me as revealing normal sinus rhythm at a rate of 89 beats per minute. [place] is normal. [place] interval is 186 seconds, QRS duration is 92 ms, QTc is 464 ms.. There were no ST or T wave abnormalities to suggest myocardial ischemia or injury. R wave progression across the precordium was satisfactory. B y my interpretation this EKG is non-diagnostic for acute ischemia. Repeat EKG was ordered by admission team. 12-lead Electrocardiogram Interpretation Note EKG was reviewed and interpreted by myself. 12-lead ECG performed at 2136 is interpreted by me as revealing normal sinus rhythm at a rate of 97 beats per minute. [place] is normal. [place] interval is 180 ms, QRS duration is 94 ms, QTc is mildly prolonged to 490 ms.. There were no ST or T wave abnormalities to s uggest myocardial ischemia or injury. R wave progression across the precordium was satisfactory. By my interpretation this EKG is non-diagnostic for acute ischemia. Disposition Clinical Impression: Hyperosmolar hyperglycemic state (HHS), Hyperglycemia, Dehydration, Hypochloremia, Paranoid schizophrenia, Diabetes mellitus, new onset Disposition: ADMITTED IP TO THIS HOSP Condition: Serious Referrals: Sangeeta Andino MD [Primary Care Provider] - 1-2 days
[2020-12-09 17:11] LABS: Basophils % (A) 0 %; Eosinophils % (A) 1 %; HCT 46.9 % (39.0-53.0); HGB 16.1 gm/dL (13.0-17.5); Lymphocytes # (A) 2.2 k/uL (1.0-4.8); Lymphocytes % (A) 30 %; MCH 32.2 pg (25.0-35.0); MCHC 34.4 g/dL (31.0-37.0); MCV 93.7 fL (80.0-100.0); Mean Platelet Volume 8.4; Monocytes # (A) 0.5 k/uL (0-1.0); Monocytes % (A) 7 %; Neutrophils # (A) 4.6 k/uL (1.3-7.7); Neutrophils % (A) 62 %; Platelet Count 245 k/uL (150-450); RBC 5.01 m/uL (4.30-5.90); RDW 13.3 % (11.5-15.5); WBC 7.5 k/uL (3.8-10.6)
[2020-12-09] MEDS: SODIUM CHLORIDE 0.9% 1,000 ML IV STA ×2 (17:11→18:05)
[2020-12-09 17:26] LABS: Appearance,Urine Clear (Clear); Bilirubin,Urine Negative (Negative); Blood,Urine Negative (Negative); Color,Urine Light Yellow; Glucose,Urine (UA) 4+ (Negative); Ketones,Urine 1+ (Negative); Leukocyte Esterase,Urine Negative (Negative); Nitrite,Urine Negative (Negative); Protein,Urine Negative (Negative); Specific Gravity,Urine 1.021 (1.001-1.035); Urobilinogen,Urine <2.0 mg/dL (<2.0)
[2020-12-09 17:28] LABS: ALT 36 U/L (4-49); AST 33 U/L (17-59); African American GFR (CKD) 73 (>60 ml/min/1.73 sqM); Albumin 4.7 g/dL (3.5-5.0); Alcohol <10 mg/dL; Alkaline Phosphatase 120 U/L (38-126); Anion Gap 17 mmol/L; Blood Urea Nitrogen 38 mg/dL (9-20); Calcium 10.5 mg/dL (8.4-10.2); Carbon Dioxide 34 mmol/L (22-30); Magnesium 2.2 mg/dL (1.6-2.3); Non-African American GFR(CKD) 63 (>60 ml/min/1.73 sqM); Potassium 3.6 mmol/L (3.5-5.1); Sodium 121 mmol/L (137-145); Total Bilirubin 0.8 mg/dL (0.2-1.3)
[2020-12-09 17:34] LABS: Amphetamine Screen,Urine Not Detected (NotDetected); Barbiturate Screen,Urine Detected (NotDetected); Benzodiazepines Screen,Urine Not Detected (NotDetected); Cocaine Screen,Urine Not Detected (NotDetected); Methadone Screen, Urine Not Detected (NotDetected); Opiate Screen,Urine Not Detected (NotDetected); Oxycodone Screen, Urine Not Detected (NotDetected); Phencyclidine Screen,Urine Not Detected (NotDetected); Tricyclic Antidepressant,Urine Not Detected (NotDetected); Urn Cannabinoid Scrn Not Detected (NotDetected)
[2020-12-09 17:40] LABS: Chloride 70 mmol/L (98-107); Glucose 648 mg/dL (74-99)
[2020-12-09] MEDS ORDERED: SODIUM CHLORIDE 0.9% 1,000 ML IV STA (17:46)
[2020-12-09 18:45] LABS: VBG PH 7.43 (7.31-7.41)
[2020-12-09] MEDS ORDERED: ONDANSETRON 4 MG/2 ML VIAL IVP STA (18:57)
[2020-12-09] MEDS ORDERED: Magnesium Replacement Protocol 1 EACH MISC MISCELLANE PRN (19:32)
[2020-12-09] MEDS ORDERED: INSULIN REGULAR BOLUS (FROM DRIP BAG) IV ONE (19:32)
[2020-12-09] MEDS ORDERED: Potassium Replacement Protocol 1 EACH MISC MISCELLANE PRN (19:32)
[2020-12-09] MEDS ORDERED: INSULIN REGULAR 100 UNIT in SODIUM CHLORIDE 0.9% 100 ML IV SCH (19:45)
[2020-12-09] MEDS ORDERED: NALOXONE 0.4 MG/ML 1 ML VIAL IV PRN (19:48)
[2020-12-09] MEDS ORDERED: ONDANSETRON 4 MG/2 ML VIAL IVP PRN (19:48)
[2020-12-09 20:08] LABS: Glucose,Whole Blood >600 mg/dL (75-99)
[2020-12-09 20:22] LABS: Basophils % (A) 0 %; Eosinophils % (A) 1 %; HCT 43.7 % (39.0-53.0); HGB 14.7 gm/dL (13.0-17.5); Lymphocytes # (A) 2.7 k/uL (1.0-4.8); Lymphocytes % (A) 35 %; MCH 31.5 pg (25.0-35.0); MCHC 33.6 g/dL (31.0-37.0); MCV 93.7 fL (80.0-100.0); Mean Platelet Volume 8.4; Monocytes # (A) 0.5 k/uL (0-1.0); Monocytes % (A) 6 %; Neutrophils # (A) 4.2 k/uL (1.3-7.7); Neutrophils % (A) 56 %; Platelet Count 230 k/uL (150-450); RBC 4.66 m/uL (4.30-5.90); RDW 13.3 % (11.5-15.5); WBC 7.6 k/uL (3.8-10.6)
[2020-12-09 20:23] LABS: VBG PH 7.44 (7.31-7.41)
[2020-12-09 20:30] LABS: African American GFR (CKD) >90 (>60 ml/min/1.73 sqM); Anion Gap 14 mmol/L; Blood Urea Nitrogen 39 mg/dL (9-20); Carbon Dioxide 30 mmol/L (22-30); Chloride 76 mmol/L (98-107); Non-African American GFR(CKD) 81 (>60 ml/min/1.73 sqM); Potassium 3.2 mmol/L (3.5-5.1); Sodium 120 mmol/L (137-145)
[2020-12-09 20:43] LABS: Glucose 530 mg/dL (74-99)
[2020-12-09 20:57] LABS: Glucose,Whole Blood 533 mg/dL (75-99)
[2020-12-09 21:31] LABS: Glucose,Whole Blood 583 mg/dL (75-99)
[2020-12-09] MEDS: SODIUM CHLORIDE 0.9% 1,000 ML IV SCH (21:50)
[2020-12-09 22:35] LABS: Glucose,Whole Blood 440 mg/dL (75-99)
[2020-12-09] MEDS ORDERED: QUEtiapine 100 MG TAB PO SCH (23:00)
--- NOTE | 2020-12-09 23:12 | P.HPIM ---
History of Present Illness H&P Date: 12/09/20 Chief Complaint: Psychiatric evaluation due to odd behavior 55-year-old male with schizophrenia, Parkinson disease, seizure disorder Patient was brought in by his guardian, due to family concerns that he is not taking his medications and he's been having on behavior with paranoid ideation. Patient himself denies any concerns at this time except for that feeling his legs are heavy this has been inconsistent as earlier in the ED was noted that he was moving freely family and guardian has concerns that the patient is not taking his medications Patient currently denies any chest pain trouble breathing nausea vomiting abdominal pain changes in his bowel or urinary habits Workup in the ED revealed patient is in DKA this is a new diagnosis to him, he doesn't have history of diabetes Patient admitted to medical for management of his DKA and evaluation by psychiatry Review of Systems Pertinent positives as noted in HPI. All other systems were reviewed and are negative 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 no recolection of either of these History of Any Multi-Drug Resistant Organisms: None Reported Past Surgical History: No Surgical Hx Reported Additional Past Surgical History / Comment(s): Upper gi Past Anesthesia/Blood Transfusion Reactions: No Reported Reaction Additional Past Anesthesia/Blood Transfusion Reaction / Comment(s): FIRST ANESTHETIC Past Psychological History: Bipolar, Schizophrenia Smoking Status: Never smoker Past Alcohol Use History: None Reported Past Drug Use History: None Reported - Past Family History Mother Family Medical History: No Reported History Medications and Allergies Home Medications Medication Instructions Recorded Confirmed Type Benztropine Mesylate [Cogentin] 2 mg PO BID 10/21/15 12/09/20 History Divalproex ER [Depakote ER] 500 mg PO TID 10/21/15 12/09/20 History amLODIPine [Norvasc] 2.5 mg PO DAILY 10/21/15 12/09/20 History Primidone [Mysoline] 50 mg PO TID 05/26/16 12/09/20 History Losartan [Cozaar] 50 mg PO DAILY 03/14/19 12/09/20 History Lurasidone HCl [Latuda] 60 mg PO HS 03/14/19 12/09/20 History QUEtiapine FUMARATE 300 mg PO HS 03/14/19 12/09/20 History fluPHENAZine HCl [fluPHENAZine HCL] 10 mg PO BID 03/14/19 12/09/20 History Chlorthalidone 50 mg PO DAILY 12/09/20 12/09/20 History Cholecalciferol [Vitamin D3 (25 25 mcg PO DAILY 12/09/20 12/09/20 History Mcg = 1000 Iu)] Furosemide [Lasix] 40 mg PO DAILY 12/09/20 12/09/20 History Omeprazole 40 mg PO DAILY 12/09/20 12/09/20 History Pravastatin Sodium [Pravachol] 20 mg PO DAILY 12/09/20 12/09/20 History Allergies Allergy/AdvReac Type Severity Reaction Status Date / Time haloperidol [From Haldol] Allergy Unknown Unknown Verified 12/09/20 16:53 haloperidol lactate Allergy Unknown Unknown Verified 12/09/20 16:53 [From Haldol] risperidone [From Risperdal] AdvReac Unknown Unknown Verified 12/09/20 16:53 Physical Exam Vitals: Vital Signs Temp Pulse Resp BP Pulse Ox 12/09/20 18:48 98.4 F 95 18 121/68 95 12/09/20 15:28 97.0 F L 103 H 20 93/62 94 L Intake and Output 12/09/20 12/09/20 12/09/20 06:59 14:59 22:59 Other: Weight 101.877 kg Constitutional: No acute distress, conversant, pleasant, cooperative Eyes: Anicteric sclerae, moist conjunctiva, Pupils equal round reactive to light ENMT: NC/AT Oropharynx clear, no erythema, or exudates, dry mucus membranes Neck: Supple, FROM, no masses, or JVD No carotid bruits No thyromegaly Lungs: Clear to auscultation Clear to percussion Normal respiratory effort, no accessory muscle use Cardiovascular: Heart regular in rate and rhythm, No murmurs, gallops, or rubs No peripheral edema Abdominal: Soft Nontender, no guarding, rebound or rigidity Abdomen moving with respiration Normoactive bowel sounds No hepatomegaly, No splenomegaly No palpable mass No abdominal wall hernia noted Skin: Normal temperature, tone, texture, turgor No induration No subcutaneous nodules No rash, lesions No ulcers Extremities: No digital cyanosis No clubbing Pedal pulses intact and symmetrical Radial pulses intact and symmetrical No calf tenderness Psychiatric: Alert and oriented to person, place and time Appropriate affect Neuro Muscles Strength 5/5 in bilateral upper extremities, 3/5 bilateral lower extremities Sensation to light touch grossly present throughout Cranial nerves II-XII grossly intact Lymphatics: no palpable cervical or supraclavicular , or inguinal lymph nodes Results CBC & Chem 7: 12/09/20 19:32 12/09/20 19:32 Labs: Abnormal Lab Results - Last 24 Hours (Table) 12/09/20 12/09/20 12/09/20 Range/Units 17:02 17:18 17:18 VBG pH (7.31-7.41) VBG pCO2 (37-51) mmHg VBG HCO3 (24-28) mmol/L Sodium 121 L (137-145) mmol/L Chloride 70 L* (98-107) mmol/L Carbon Dioxide 34 H (22-30) mmol/L BUN 38 H (9-20) mg/dL Creatinine 1.27 H (0.66-1.25) mg/dL Glucose 648 H* (74-99) mg/dL Osmolality (280-301) mosm/kg Calcium 10.5 H (8.4-10.2) mg/dL Urine Glucose (UA) 4+ H (Negative) Urine Ketones 1+ H (Negative) Ur Barbiturates Screen Detected H (NotDetected) 12/09/20 12/09/20 Range/Units 18:08 18:08 VBG pH 7.43 H (7.31-7.41) VBG pCO2 59 H (37-51) mmHg VBG HCO3 38 H (24-28) mmol/L Sodium (137-145) mmol/L Chloride (98-107) mmol/L Carbon Dioxide (22-30) mmol/L BUN (9-20) mg/dL Creatinine (0.66-1.25) mg/dL Glucose (74-99) mg/dL Osmolality 302 H (280-301) mosm/kg Calcium (8.4-10.2) mg/dL Urine Glucose (UA) (Negative) Urine Ketones (Negative) Ur Barbiturates Screen (NotDetected) Assessment and Plan Assessment: DKA , without history of DM check A1C start on insulin drip , following DKA pathway IVF hydration with normal saline NPO follow up electrolytes diabetic education Blood glucose monitoring Q1H pseudohyponatremia secondary to hyperglycemia mixed acid base disorder hypochloremic alkalosis hold diuretics follow up electrolytes chronic conditions Schizophrenia seizure disorder Parkinson disease resume home medications psych evaluation for behavioral changes, and non compliance with psych meds seizure precautions full code DVT PPX heparin sc tid anticipated length of stay > 2 midnights anticipated discharge pending psych evaluation
[2020-12-09 23:28] LABS: Glucose,Whole Blood 389 mg/dL (75-99)
[2020-12-10 00:39] LABS: Glucose,Whole Blood 394 mg/dL (75-99)
[2020-12-10] MEDS: DIVALPROEX ER 500 MG TAB.ER.24H PO SCH ×2 (00:39→07:53)
[2020-12-10] MEDS: PRIMIDONE 50 MG TAB PO SCH ×4 (00:39→21:27)
[2020-12-10] MEDS: HEPARIN SODIUM,PORCINE/PF 5,000 UNIT/0.5 ML SYRINGE SQ SCH ×4 (00:43→23:32)
[2020-12-10 01:08] LABS: Potassium 2.7 mmol/L (3.5-5.1)
[2020-12-10] MEDS: LURASIDONE 20 MG TAB PO SCH ×2 (01:12→07:53)
[2020-12-10 01:33] LABS: Glucose,Whole Blood 308 mg/dL (75-99)
[2020-12-10] MEDS: POTASSIUM PHOSPHATE 10 MMOL in SODIUM CHLORIDE 0.9% 250 ML IV SCH ×2 (02:09→04:20)
[2020-12-10] MEDS: POTASSIUM CHLORIDE 10 MEQ in WATER FOR INJECTION 1 100ML.BAG IVPB SCH ×6 (02:23→07:07)
[2020-12-10] MEDS: SODIUM CHLORIDE 0.9% 1,000 ML IV SCH ×3 (02:24→22:09)
[2020-12-10 03:19] LABS: Glucose,Whole Blood 230 mg/dL (75-99)
[2020-12-10] MEDS ORDERED: D5-0.45% NACL WITH KCL 20MEQ/L 1,000 ML IV SCH (03:30)
[2020-12-10 04:10] LABS: Glucose,Whole Blood 198 mg/dL (75-99)
[2020-12-10] MEDS ORDERED: DEXTROSE 5%-0.45% NACL 1,000 ML IV SCH ×2 (04:30→04:45)
[2020-12-10] MEDS: INSULIN DETEMIR (LEVEMIR) 100 UNIT/ML SYR SQ SCH ×2 (04:52→23:32)
[2020-12-10 06:14] LABS: Glucose,Whole Blood 264 mg/dL (75-99)
[2020-12-10] MEDS: PANTOPRAZOLE 40 MG TABLET PO SCH (06:28)
[2020-12-10] MEDS: INSULIN ASPART (NovoLOG) 100 UNIT/ML VIAL SQ SCH ×4 (06:28→21:27)
[2020-12-10] MEDS: amLODIPine 2.5 MG TAB PO SCH (07:52)
[2020-12-10 07:53] LABS: Glucose,Whole Blood 240 mg/dL (75-99)
[2020-12-10] MEDS: LOSARTAN 50 MG TAB PO SCH (07:53)
[2020-12-10] MEDS: PRAVASTATIN SODIUM 20 MG TAB PO SCH (07:53)
[2020-12-10] MEDS ORDERED: BENZTROPINE MESYLATE 1 MG TAB PO SCH (09:00)
[2020-12-10 10:11] LABS: HCT 43.5 % (39.0-53.0); HGB 15.2 gm/dL (13.0-17.5); MCH 31.8 pg (25.0-35.0); MCV 90.8 fL (80.0-100.0); Mean Platelet Volume 8.5; Platelet Count 210 k/uL (150-450); RBC 4.79 m/uL (4.30-5.90); RDW 13.9 % (11.5-15.5); WBC 5.8 k/uL (3.8-10.6)
[2020-12-10 10:27] LABS: ALT 27 U/L (4-49); AST 35 U/L (17-59); African American GFR (CKD) >90 (>60 ml/min/1.73 sqM); Albumin 3.8 g/dL (3.5-5.0); Alkaline Phosphatase 88 U/L (38-126); Anion Gap 8 mmol/L; Blood Urea Nitrogen 28 mg/dL (9-20); Calcium 9.2 mg/dL (8.4-10.2); Carbon Dioxide 33 mmol/L (22-30); Chloride 85 mmol/L (98-107); Glucose 289 mg/dL (74-99); Magnesium 1.8 mg/dL (1.6-2.3); Non-African American GFR(CKD) >90 (>60 ml/min/1.73 sqM); Potassium 3.5 mmol/L (3.5-5.1); Sodium 126 mmol/L (137-145); Total Bilirubin 0.7 mg/dL (0.2-1.3); Total Protein 6.8 g/dL (6.3-8.2)
[2020-12-10] MEDS: POTASSIUM CHLORIDE ER 20 MEQ TAB.ER PO SCH ×4 (11:37→22:20)
[2020-12-10 11:41] LABS: Glucose,Whole Blood 283 mg/dL (75-99)
[2020-12-10] MEDS: MAGNESIUM SULFATE-D5W PMX 1 GM in DEXTROSE/WATER 1 100ML.BAG IVPB SCH ×2 (11:54→13:51)
--- NOTE | 2020-12-10 13:42 | P.CN ---
Psychiatric Consult - . Consult date: 12/10/20 Consult:: IDENTIFYING DATA: This patient is a 55-year-old male with a history of schizophrenia who has a legal guardian, lives alone in an apartment. REASON FOR REFERRAL: Psychiatry was consulted for "history of schizophrenia, worening delusions" HISTORY OF PRESENT ILLNESS: The patient presented to the hospital for a psychiatric evaluation and apparently has been acting delusional and bizarre. According to ER report patient has possibly been noncompliant with his medications and treatment. Patient was found to be in DKA and has a sodium of 126 and potassium of 2.7. Patient's UDS was positive for barbiturates. Patient had elevated blood glucose. Patient's nurse states that patient has been fairly demanding and rambling and fairly confused. Patient was seen at the bedside and appeared to be fairly hyperverbal, illogical at times, and loosened associations. He was rambling and was fairly delusional. He was difficult to redirect during conversation. He spoke about feeling like he is being "choked" by something and was attempting to cough several times. He was also labile in his affect. He claims that he does not know why he is in the hospital and spoke about his follow-up care with his psychiatrist. He is denying any depression at this time or anxiety. He claims that his sleep is poor appetite is fair. He knows that he is in [place] and in the hospital and also knows his name however does not know today's date . At this time patient denies any suicidal or homical ideations, intent or plan. Patient denies any auditory, visual hallucinations. Patients admits to using no recreational drugs spoke with legal bronsonans assistant Chan over the phone at [phone] who states that patient has a poor baseline and is delusional however has been coming to the office every week to pick up attendant his medications in a box. She states that [facility] does have a [facility] into [facility] and destroying computers and other property. She also claims that patient has questionable medication compliance at home. PAST PSYCHIATRIC HISTORY: Patient has a a history of schizophrenia. Patient is currently on Cogentin, Depakote, Seroquel, latuda,Prolixin. He states that he currently follows up with Dr. Walters for psychiatric care. Patient denies any history of suicide attempts in the past. Past Medical History: Neurologic Disorder Additional Past Medical History / Comment(s): POSSIBLE SEIZURE DISORDER - TAKES DEPAKOTE PER LEGAL GUARDIAN", PARKINSON DISEASE: per patient and sister no recolection of either of these ALLERGIES: as per EMR. CHEMICAL DEPENDENCY HISTORY: as per HPI. FAMILY PSYCHIATRIC/SUBSTANCE USE HISTORY: denies SOCIAL HISTORY: Patient was born and raised in [place]. He states that he completed his GED in school. He currently has a guardian and lives alone in an apartment. MENTAL STATUS EXAM: General Appearance: Patient appears to be overweight, stated age is alert, difficult to redirect. Attempts to cooperate. Patient appears to have poor hygiene and grooming wearing hospital gown with fair eye contact. Behavior: Patient is calmly lying in bed without any agitated behavior. He appears to have bilateral resting tremors in his upper extremities Speech: Patient's speech is fluent and nonpressured. Rambles, illogical Mood/Affect: Patient reports their mood is "ok", affect is congruent Suicidality/Homicidality: Patient denies having any suicidal or homicidal ideation intent or plan. Perceptions: Patient denies any visual hallucinations and denies any auditory hallucinations Though content/process: Tangential, loose associations, illogical. Delusional. Memory and concentration: AOX2, does not know what today's date is. Cannot spell "WORLD" backwards Judgment and insight: poor IMPRESSIONS: Schizophrenia PLAN: -At this psychiatry will continue to follow patient as he is being treated medically to see if patient requires inpatient psychiatric hospitalization. -Patient DOES NOT have decision making capacity at this time and is unable to reason through and communicate/appreciate the risks, benefits and alternatives to treatment. -Would recommend the following medication changes/additions: Continue with Prolixin by mouth 10 mg twice a day for psychosis. We will attempt to transition patient onto Prolixin D IM to better ensure compliance. Discontinued Seroquel and Latuda. added trazodone 50 mg qhs for inosmnia/mood. changed depakote to 750 mg bid for mood stabilization. -continue with medical treatment of underlying comorbities. -Communicated plan to patient's nurse -Will continue to follow along -Please contact with any questions.
[2020-12-10] MEDS ORDERED: LORazepam 2 MG/ML INJ IV STA (15:00)
--- NOTE | 2020-12-10 16:00 | P.PN ---
<Aaron Carbajal - Last Filed: 12/10/20 15:33> Subjective Progress Note Date: 12/10/20 Hospital course: Patient is a 55-year-old male with a past medical history of schizophrenia, Pa rkinson's disease, seizure disorder, hypertension, hyperlipidemia, and GERD. Patient presented to the hospital on 12/09/20 in care of his guardian with a chief complaint of paranoid behaviors and concerns that he was not taking medications appropriately. Patient reportedly lives independently but has been very paranoid and not taking medications. In the emergency department, patient was found to have significant elevation in glucose with blood glucose level of 658. He was treated with 3 L 0.9% normal saline bolus followed by infusion along with 10 units regular insulin, and 10 units of Levemir. Patient was admitted under our services to stepdown unit with consultation to psychiatry. Physical exam: Patient seen and fully evaluated at the bedside this morning. Blood glucose levels have improved and currently 240. Patient continues with hyponatremia with corrected sodium of 129. Upon examination at bedside patient very paranoid, he was cooperative with assessment however tenuously repeated the words "poop, fart, poop, fart" throughout entire assessment. Patient was hyperverbal and appeared slightly agitated. IV fluids continue to infuse, patient on glycemic protocol with NovoLog sliding scale as well as Levemir 10 units nightly.. Patient awaiting evaluation by psychiatry, orders placed for sitter to be placed at bedside to maintain safety. Vital signs reviewed and stable. General: Nontoxic, no distress and appears stated age. Derm: Skin warm and dry, normal coloration for ethnicity. Head: Atraumatic, normocephalic and symmetric. Eyes: Patient would not make eye contact throughout assessment Mouth: no lip lesions, mucus membranes moist Cardiovascular: regular rate and rhythm with normal S1S2, no murmur, positive po sterior tibial pulses bilaterally, and cap refill < 2 seconds. Lungs: Respirations even, regular, and unlabored on room air. Lungs CTA bilaterally, no rhonchi, no rales, no wheezing, and no accessory muscle usage. Abdominal: soft, nontender to palpation, no guarding, no appreciable organomegaly Ext: ROM intact. No gross muscle atrophy, no edema, no contractures Neuro: Speech clear, face symmetrical Psych: Paranoid behaviors, agitated appearance. Assessment and Plan of Care: Hyperglycemia Metabolic alkalosis -Glucose levels have improved -Continue glycemic protocol with NovoLog sliding scale as well as Levemir 10 units nightly -Carb consistent diet -Awaiting A1c Hypokalemia Hypophosphatemia -Replaced, we will continue to monitor with repeat a.m. labs. -Electrolyte replacement protocol Hyponatremia -Mainly pseudohyponatremia secondary to significant hyperglycemia, Sodium 121 with corrected sodium of 130. -Patient received 3 L bolus of IV fluids to treat significant hyperglycemia upon presentation. -Repeat corrected sodium 129 at this time, likely with underlying chronic hyponatremia secondary to daily use of antipsychotic medications -Continue gentle hydration with IV fluids. -Continued close monitoring with repeat a.m. labs. Schizophrenia Paranoid behaviors Agitation and anxiety -Continue daily medication regimen with Cogentin, Depakote, fluphenazine, Latuda, primidone, and quetiapine fumarate pending further recommendations from psychiatry. -Sitter at bedside to maintain safety. CODE STATUS: Full code DVT prophylaxis: Heparin Discussed with: Patient and RN Anticipated discharge date: Clinical course to determine Anticipated discharge place: Home A total of 45 minutes was spent on the care of this complex patient more than 50% of the time was spent in counseling and care coordination. Objective - Vital Signs Vital signs: Vital Signs Temp 97.5 F L 12/10/20 03:30 Pulse 85 12/10/20 07:38 Resp 16 12/10/20 07:38 BP 101/73 12/10/20 07:38 Pulse Ox 94 L 12/10/20 07:38 Intake & Output 12/09/20 12/10/20 12/10/20 18:59 06:59 18:59 Intake Total 60.883 Balance 60.883 Weight 101.877 kg Intake: Intake, IV Titration 60.883 Amount Insulin Regular 100 unit 60.883 In Sodium Chloride 0.9% 100 ml @ 0.1 UNITS/KG/HR 10.29 mls/hr IV .[id number] [facility] Rx#:[id number] Other: Voiding Method Urinal - Labs CBC & Chem 7: 12/10/20 09:38 12/10/20 09:38 Labs: Abnormal Lab Results - Last 24 Hours (Table) 12/09/20 12/09/20 12/09/20 Range/Units 17:02 17:18 17:18 VBG pH (7.31-7.41) VBG pCO2 (37-51) mmHg VBG HCO3 (24-28) mmol/L Sodium 121 L (137-145) mmol/L Potassium (3.5-5.1) mmol/L Chloride 70 L* (98-107) mmol/L Carbon Dioxide 34 H (22-30) mmol/L BUN 38 H (9-20) mg/dL Creatinine 1.27 H (0.66-1.25) mg/dL Glucose 648 H* (74-99) mg/dL POC Glucose (mg/dL) (75-99) mg/dL Osmolality (280-301) mosm/kg Calcium 10.5 H (8.4-10.2) mg/dL Phosphorus (2.5-4.5) mg/dL Urine Glucose (UA) 4+ H (Negative) Urine Ketones 1+ H (Negative) Ur Barbiturates Screen Detected H (NotDetected) 12/09/20 12/09/20 12/09/20 Range/Units 18:08 18:08 19:32 VBG pH 7.43 H (7.31-7.41) VBG pCO2 59 H (37-51) mmHg VBG HCO3 38 H (24-28) mmol/L Sodium 120 L (137-145) mmol/L Potassium 3.2 L (3.5-5.1) mmol/L Chloride 76 L (98-107) mmol/L Carbon Dioxide (22-30) mmol/L BUN 39 H (9-20) mg/dL Creatinine (0.66-1.25) mg/dL Glucose 530 H* (74-99) mg/dL POC Glucose (mg/dL) (75-99) mg/dL Osmolality 302 H (280-301) mosm/kg Calcium (8.4-10.2) mg/dL Phosphorus (2.5-4.5) mg/dL Urine Glucose (UA) (Negative) Urine Ketones (Negative) Ur Barbiturates Screen (NotDetected) 12/09/20 12/09/20 12/09/20 Range/Units 19:32 20:07 20:56 VBG pH 7.44 H (7.31-7.41) VBG pCO2 53 H (37-51) mmHg VBG HCO3 35 H (24-28) mmol/L Sodium (137-145) mmol/L Potassium (3.5-5.1) mmol/L Chloride (98-107) mmol/L Carbon Dioxide (22-30) mmol/L BUN (9-20) mg/dL Creatinine (0.66-1.25) mg/dL Glucose (74-99) mg/dL POC Glucose (mg/dL) >600 H 533 H (75-99) mg/dL Osmolality (280-301) mosm/kg Calcium (8.4-10.2) mg/dL Phosphorus (2.5-4.5) mg/dL Urine Glucose (UA) (Negative) Urine Ketones (Negative) Ur Barbiturates Screen (NotDetected) 12/09/20 12/09/20 12/09/20 Range/Units 21:30 22:34 23:26 VBG pH (7.31-7.41) VBG pCO2 (37-51) mmHg VBG HCO3 (24-28) mmol/L Sodium (137-145) mmol/L Potassium (3.5-5.1) mmol/L Chloride (98-107) mmol/L Carbon Dioxide (22-30) mmol/L BUN (9-20) mg/dL Creatinine (0.66-1.25) mg/dL Glucose (74-99) mg/dL POC Glucose (mg/dL) 583 H 440 H 389 H (75-99) mg/dL Osmolality (280-301) mosm/kg Calcium (8.4-10.2) mg/dL Phosphorus (2.5-4.5) mg/dL Urine Glucose (UA) (Negative) Urine Ketones (Negative) Ur Barbiturates Screen (NotDetected) 12/10/20 12/10/20 12/10/20 Range/Units 00:10 00:10 00:37 VBG pH (7.31-7.41) VBG pCO2 (37-51) mmHg VBG HCO3 (24-28) mmol/L Sodium 125 L (137-145) mmol/L Potassium 2.7 L* (3.5-5.1) mmol/L Chloride 80 L (98-107) mmol/L Carbon Dioxide 36 H (22-30) mmol/L BUN 34 H (9-20) mg/dL Creatinine (0.66-1.25) mg/dL Glucose 284 H (74-99) mg/dL POC Glucose (mg/dL) 394 H (75-99) mg/dL Osmolality (280-301) mosm/kg Calcium (8.4-10.2) mg/dL Phosphorus 1.6 L (2.5-4.5) mg/dL Urine Glucose (UA) (Negative) Urine Ketones (Negative) Ur Barbiturates Screen (NotDetected) 12/10/20 12/10/20 12/10/20 Range/Units 01:30 03:17 04:08 VBG pH (7.31-7.41) VBG pCO2 (37-51) mmHg VBG HCO3 (24-28) mmol/L Sodium (137-145) mmol/L Potassium (3.5-5.1) mmol/L Chloride (98-107) mmol/L Carbon Dioxide (22-30) mmol/L BUN (9-20) mg/dL Creatinine (0.66-1.25) mg/dL Glucose (74-99) mg/dL POC Glucose (mg/dL) 308 H 230 H 198 H (75-99) mg/dL Osmolality (280-301) mosm/kg Calcium (8.4-10.2) mg/dL Phosphorus (2.5-4.5) mg/dL Urine Glucose (UA) (Negative) Urine Ketones (Negative) Ur Barbiturates Screen (NotDetected) 12/10/20 12/10/20 Range/Units 06:14 07:41 VBG pH (7.31-7.41) VBG pCO2 (37-51) mmHg VBG HCO3 (24-28) mmol/L Sodium (137-145) mmol/L Potassium (3.5-5.1) mmol/L Chloride (98-107) mmol/L Carbon Dioxide (22-30) mmol/L BUN (9-20) mg/dL Creatinine (0.66-1.25) mg/dL Glucose (74-99) mg/dL POC Glucose (mg/dL) 264 H 240 H (75-99) mg/dL Osmolality (280-301) mosm/kg Calcium (8.4-10.2) mg/dL Phosphorus (2.5-4.5) mg/dL Urine Glucose (UA) (Negative) Urine Ketones (Negative) Ur Barbiturates Screen (NotDetected) <Em Foley - Last Filed: 12/10/20 22:02> Subjective Aaron Carbajal NP rendered care for this patient independently, reviewed the findings and plan as documented in the note above. I did not physically speak with or examine the patient on this date. Patient is off insulin drip and sodiums are improving. Anticipate likely stable to consider transfer to mental health unit in a.m. if continues on current course, and psychiatry feels he warrants inpatient admission. Objective - Vital Signs Vital signs: Vital Signs Temp 98 F 12/10/20 11:59 Pulse 90 12/10/20 17:23 Resp 16 12/10/20 17:23 BP 109/73 12/10/20 17:23 Pulse Ox 98 12/10/20 17:23 Intake & Output 12/10/20 12/10/20 12/11/20 06:59 18:59 06:59 Intake Total 60.883 Balance 60.883 Weight 101.877 kg Intake: Intake, IV Titration 60.883 Amount Insulin Regular 100 unit 60.883 In Sodium Chloride 0.9% 100 ml @ 0.1 UNITS/KG/HR 10.29 mls/hr IV .Q9H49M [facility] Rx#:[id number] Other: Voiding Method Urinal - Labs CBC & Chem 7: 12/10/20 09:38 12/10/20 16:52 Labs: Abnormal Lab Results - Last 24 Hours (Table) 12/09/20 12/09/20 12/10/20 Range/Units 22:34 23:26 00:10 Sodium (137-145) mmol/L Potassium (3.5-5.1) mmol/L Chloride (98-107) mmol/L Carbon Dioxide (22-30) mmol/L BUN (9-20) mg/dL Glucose (74-99) mg/dL POC Glucose (mg/dL) 440 H 389 H (75-99) mg/dL Hemoglobin A1c (4.0-6.0) % Phosphorus 1.6 L (2.5-4.5) mg/dL 12/10/20 12/10/20 12/10/20 Range/Units 00:10 00:37 01:30 Sodium 125 L (137-145) mmol/L Potassium 2.7 L* (3.5-5.1) mmol/L Chloride 80 L (98-107) mmol/L Carbon Dioxide 36 H (22-30) mmol/L BUN 34 H (9-20) mg/dL Glucose 284 H (74-99) mg/dL POC Glucose (mg/dL) 394 H 308 H (75-99) mg/dL Hemoglobin A1c (4.0-6.0) % Phosphorus (2.5-4.5) mg/dL 12/10/20 12/10/20 12/10/20 Range/Units 03:17 04:08 06:14 Sodium (137-145) mmol/L Potassium (3.5-5.1) mmol/L Chloride (98-107) mmol/L Carbon Dioxide (22-30) mmol/L BUN (9-20) mg/dL Glucose (74-99) mg/dL POC Glucose (mg/dL) 230 H 198 H 264 H (75-99) mg/dL Hemoglobin A1c (4.0-6.0) % Phosphorus (2.5-4.5) mg/dL 12/10/20 12/10/20 12/10/20 Range/Units 07:41 09:38 09:38 Sodium 126 L (137-145) mmol/L Potassium (3.5-5.1) mmol/L Chloride 85 L (98-107) mmol/L Carbon Dioxide 33 H (22-30) mmol/L BUN 28 H (9-20) mg/dL Glucose 289 H (74-99) mg/dL POC Glucose (mg/dL) 240 H (75-99) mg/dL Hemoglobin A1c 12.9 H (4.0-6.0) % Phosphorus (2.5-4.5) mg/dL 12/10/20 12/10/20 12/10/20 Range/Units 11:39 16:52 16:54 Sodium (137-145) mmol/L Potassium 3.1 L (3.5-5.1) mmol/L Chloride (98-107) mmol/L Carbon Dioxide (22-30) mmol/L BUN (9-20) mg/dL Glucose (74-99) mg/dL POC Glucose (mg/dL) 283 H 375 H (75-99) mg/dL Hemoglobin A1c (4.0-6.0) % Phosphorus (2.5-4.5) mg/dL
[2020-12-10 16:56] LABS: Glucose,Whole Blood 375 mg/dL (75-99)
[2020-12-10] MEDS ORDERED: traZODone HCL 50 MG TAB PO SCH (21:00)
[2020-12-10] MEDS: DIVALPROEX ER 250 MG TAB.ER.24H PO SCH (22:10)
[2020-12-10] MEDS: BENZTROPINE MESYLATE 1 MG TAB PO SCH (22:11)
[2020-12-10 23:26] LABS: Glucose,Whole Blood 279 mg/dL (75-99)
[2020-12-11 06:05] LABS: Glucose,Whole Blood 244 mg/dL (75-99)
[2020-12-11 07:55] LABS: Glucose,Whole Blood 235 mg/dL (75-99)
[2020-12-11] MEDS: INSULIN ASPART (NovoLOG) 100 UNIT/ML VIAL SQ SCH ×2 (08:37→13:13)
[2020-12-11] MEDS: HEPARIN SODIUM,PORCINE/PF 5,000 UNIT/0.5 ML SYRINGE SQ SCH ×2 (09:03→15:06)
[2020-12-11] MEDS: DIVALPROEX ER 250 MG TAB.ER.24H PO SCH ×2 (09:04→21:47)
[2020-12-11] MEDS: PANTOPRAZOLE 40 MG TABLET PO SCH (09:04)
[2020-12-11] MEDS: BENZTROPINE MESYLATE 1 MG TAB PO SCH (09:05)
[2020-12-11] MEDS: amLODIPine 2.5 MG TAB PO SCH (09:05)
[2020-12-11] MEDS: PRIMIDONE 50 MG TAB PO SCH ×3 (09:06→21:47)
[2020-12-11] MEDS: PRAVASTATIN SODIUM 20 MG TAB PO SCH (09:06)
[2020-12-11] MEDS: LOSARTAN 50 MG TAB PO SCH (09:06)
[2020-12-11] MEDS: SODIUM CHLORIDE 0.9% 1,000 ML IV SCH ×2 (11:14→15:06)
[2020-12-11 11:43] LABS: Glucose,Whole Blood 259 mg/dL (75-99)
[2020-12-11] MEDS ORDERED: BENZTROPINE MESYLATE 1 MG TAB PO PRN (13:46)
--- NOTE | 2020-12-11 13:46 | P.PN ---
Progress Note - Text Progress Note Date: 12/11/20 Interval History: Patient was seen for psychiatric follow-up regarding patient's schizophrenia. Patient appeared to be fairly tired today. Nurse taking care of the patient states that he did not sleep well last night. Patient appears to be much more logical today in his answers and goal oriented. He asked several questions about his medications. He was not rambling today and not endorsing any paranoia or delusions. He asked typewriters functional tester "why does anybody would not want to talk to me". He claims that his mood is "fine" however does state that he is feeling fairly tired today. At this time patient denies any suicidal or homical ideations, intent or plan. Patient denies any auditory, visual hallucinations and denies any paranoia or delusions. Mental Status Exam: General Appearance: Patient appears to be overweight, stated age is alert, attempts to cooperate. Patient appears to have improving hygiene and grooming wearing hospital gown with fair eye contact. Behavior: Patient is calmly lying in bed without any agitated behavior. He appears to have bilateral resting tremors in his upper extremities Speech: Patient's speech is fluent and nonpressured. Rambles less today Mood/Affect: Patient reports their mood is "better", affect is congruent and constricted Suicidality/Homicidality: Patient denies having any suicidal or homicidal ideation intent or plan. Perceptions: Patient denies any visual hallucinations and denies any auditory hallucinations Though content/process: Tangential at times, rambles, improving, more goal oriented and logical today Memory and concentration: AOX2, does not know what today's date is. Cannot spell "WORLD" backwards Judgment and insight: chronically limited Assessment schizophrenia Plan: -At this time patient will not meet criteria for inpatient psych -Patient DOES NOT have decision making capacity at this time and is unable to reason through and communicate/appreciate the risks, benefits and alternatives to treatment. -Would recommend the following medication changes/additions: Continue with Prolixin by mouth 10 mg twice a day for psychosis. increased trazodone 100 mg qhs for inosmnia/mood with PRN BEnadryl 25 mg qhs prn for insomnia. continue with depakote 750 mg bid for mood stabilization. -continue with medical treatment of underlying comorbities. -Communicated plan to patient's nurse -At this time psychiatry will follow up ONLY as needed or if requested by primary team -Please give referrals for outpatient MH providers in the area for follow up. -Please contact with any questions.
[2020-12-11] MEDS ORDERED: diphenhydrAMINE 25 MG CAP PO PRN (13:47)
[2020-12-11 14:51] VITALS: BMI 33.8
[2020-12-11 17:20] LABS: Glucose,Whole Blood 369 mg/dL (75-99)
[2020-12-11] MEDS ORDERED: INSULIN ASPART (NovoLOG) 100 UNIT/ML VIAL SQ ONE (17:45)
--- NOTE | 2020-12-11 18:07 | P.PN ---
<Aaron Carbajal - Last Filed: 12/11/20 18:00> Subjective Progress Note Date: 12/11/20 Hospital course: Patient is a 55-year-old male with a past medical history of schizophrenia, Pa rkinson's disease, seizure disorder, hypertension, hyperlipidemia, and GERD. Patient presented to the hospital on 12/09/20 in care of his guardian with a chief complaint of paranoid behaviors and concerns that he was not taking medications appropriately. Patient reportedly lives independently but has been very paranoid and not taking medications. In the emergency department, patient was found to have significant elevation in glucose with blood glucose level of 658. He was treated with 3 L 0.9% normal saline bolus followed by infusion along with 10 units regular insulin, and 10 units of Levemir. Patient was admitted under our services to stepdown unit with consultation to psychiatry. Physical exam: Patient seen and fully evaluated at the bedside this morning. Blood glucose 235 this morning. Patient's mentation much more improved upon examination this morning compared to yesterday. Patient calm and cooperative. Patient alert and oriented, maintained eye contact throughout assessment. Discussed plan of care with patient. Patient lives alone inpatient in agreement he is unable to administer insulin to himself. Discussed possibility of patient going to shelter versus having someone come out to home to administer daily medications. Social work to look into pace program and ACT program. Levemir increased to 20 units nightly and patient to be started on Glucophage 500 mg twice a day. Hemoglobin A1c 12.9%. We will continue to monitor closely. Vital signs reviewed and stable. General: Nontoxic, no distress and appears stated age. Derm: Skin warm and dry, normal coloration for ethnicity. Head: Atraumatic, normocephalic and symmetric. Eyes: Patient would not make eye contact throughout assessment Mouth: no lip lesions, mucus membranes moist Cardiovascular: regular rate and rhythm with normal S1S2, no murmur, positive posterior tibial pulses bilaterally, and cap refill < 2 seconds. Lungs: Respirations even, regular, and unlabored on room air. Lungs CTA bilaterally, no rhonchi, no rales, no wheezing, and no accessory muscle usage. Abdominal: soft, nontender to palpation, no guarding, no appreciable organom egaly Ext: ROM intact. No gross muscle atrophy, no edema, no contractures Neuro: Speech clear, face symmetrical Psych: Paranoid behaviors, agitated appearance. Assessment and Plan of Care: Hyperglycemia, improved Metabolic alkalosis -Glucose levels have improved -We will discontinue sliding scale as patient will not be able to be placed on sliding scale at shelter or have individual/guardian come to home to administer insulin 4 times daily. To develop a safe discharge plan, patient will be started on metformin 500 mg twice a day and increase long-acting insulin Levemir to 20 units nightly. -Carb consistent diet -Hemoglobin A1c 12.9% Hypokalemia, replaced Hypophosphatemia, replaced -Replaced, we will continue to monitor with repeat a.m. labs. -Electrolyte replacement protocol Hyponatremia -Mainly pseudohyponatremia secondary to significant hyperglycemia, Sodium 121 with corrected sodium of 130. -Patient received 3 L bolus of IV fluids to treat significant hyperglycemia upon presentation. -Repeat corrected sodium 129 at this time, likely with underlying chronic hyponatremia secondary to daily use of antipsychotic medications -Continue gentle hydration with IV fluids. -Continued close monitoring with repeat a.m. labs. Schizophrenia Paranoid behaviors Agitation and anxiety -Continue daily medication regimen with Cogentin, Depakote, fluphenazine, Latuda, primidone, and quetiapine fumarate pending further recommendations from psychiatry. -Sitter at bedside to maintain safety. CODE STATUS: Full code DVT prophylaxis: Heparin Discussed with: Patient and RN Anticipated discharge date: Clinical course to determine Anticipated discharge place: Awaiting safe discharge plan at this time, likely shelter A total of 45 minutes was spent on the care of this complex patient more than 50% of the time was spent in counseling and care coordination. Objective - Vital Signs Vital signs: Vital Signs Temp 98.1 F 12/11/20 04:00 Pulse 71 12/11/20 09:00 Resp 16 12/11/20 04:00 BP 111/71 12/11/20 09:00 Pulse Ox 98 12/11/20 04:00 Intake & Output 12/10/20 12/11/20 12/11/20 18:59 06:59 18:59 Intake Total 590 Output Total 600 300 Balance -10 -300 Weight 101.877 kg 98 kg Intake: Oral 590 Output: Urine 600 300 Other: # Voids 1 - Labs CBC & Chem 7: 12/10/20 09:38 12/11/20 02:44 Labs: Abnormal Lab Results - Last 24 Hours (Table) 12/09/20 12/10/20 12/10/20 Range/Units 23:13 09:38 11:39 Potassium (3.5-5.1) mmol/L POC Glucose (mg/dL) 283 H (75-99) mg/dL Hemoglobin A1c 12.9 H (4.0-6.0) % Primidone 2.2 L (4-12) ug/mL 12/10/20 12/10/20 12/10/20 Range/Units 16:52 16:54 23:25 Potassium 3.1 L (3.5-5.1) mmol/L POC Glucose (mg/dL) 375 H 279 H (75-99) mg/dL Hemoglobin A1c (4.0-6.0) % Primidone (4-12) ug/mL 12/11/20 12/11/20 Range/Units 06:03 07:43 Potassium (3.5-5.1) mmol/L POC Glucose (mg/dL) 244 H 235 H (75-99) mg/dL Hemoglobin A1c (4.0-6.0) % Primidone (4-12) ug/mL <Em Foley - Last Filed: 12/11/20 22:21> Subjective Interim IABP not seen Objective - Vital Signs Vital signs: Vital Signs Temp 98.1 F 12/11/20 20:00 Pulse 68 12/11/20 20:00 Resp 16 12/11/20 20:00 BP 116/72 12/11/20 20:00 Pulse Ox 93 L 12/11/20 20:00 Intake & Output 12/11/20 12/11/20 12/12/20 06:59 18:59 06:59 Intake Total 590 590 Output Total 600 300 Balance -10 -300 590 Weight 98 kg 98 kg Intake: Oral 590 590 Output: Urine 600 300 Other: # Voids 1 # Bowel Movements 1 - Labs CBC & Chem 7: 12/10/20 09:38 12/11/20 02:44 Labs: Abnormal Lab Results - Last 24 Hours (Table) 12/09/20 12/10/20 12/11/20 Range/Units 23:13 23:25 02:44 POC Glucose (mg/dL) 279 H (75-99) mg/dL Phosphorus 1.6 L (2.5-4.5) mg/dL Primidone 2.2 L (4-12) ug/mL 12/11/20 12/11/20 12/11/20 Range/Units 06:03 07:43 11:41 POC Glucose (mg/dL) 244 H 235 H 259 H (75-99) mg/dL Phosphorus (2.5-4.5) mg/dL Primidone (4-12) ug/mL 12/11/20 12/11/20 Range/Units 17:17 20:42 POC Glucose (mg/dL) 369 H 410 H (75-99) mg/dL Phosphorus (2.5-4.5) mg/dL Primidone (4-12) ug/mL
[2020-12-11] MEDS: metFORMIN 500 MG TAB PO SCH (18:11)
[2020-12-11 20:43] LABS: Glucose,Whole Blood 410 mg/dL (75-99)
[2020-12-11] MEDS: INSULIN DETEMIR (LEVEMIR) 100 UNIT/ML SYR SQ SCH (21:46)
[2020-12-11] MEDS: traZODone HCL 100 MG TAB PO SCH (21:47)
[2020-12-11] MEDS ORDERED: Phosphorus Replacement Protoco 1 EACH MISC MISCELLANE PRN (22:20)
[2020-12-11] MEDS: SODIUM PHOSPHATE 10 MMOL in SODIUM CHLORIDE 0.9% 250 ML IVPB SCH (23:13)
[2020-12-11 23:20] LABS: Glucose,Whole Blood 316 mg/dL (75-99)
[2020-12-12] MEDS: SODIUM CHLORIDE 0.9% 1,000 ML IV SCH ×2 (00:51→22:14)
[2020-12-12] MEDS: HEPARIN SODIUM,PORCINE/PF 5,000 UNIT/0.5 ML SYRINGE SQ SCH ×5 (00:55→22:14)
[2020-12-12] MEDS ORDERED: INSULIN ASPART (NovoLOG) 100 UNIT/ML VIAL SQ ONE (01:25)
[2020-12-12] MEDS: SODIUM PHOSPHATE 10 MMOL in SODIUM CHLORIDE 0.9% 250 ML IVPB SCH (01:28)
[2020-12-12 08:17] LABS: Basophils % (A) 1 %; Eosinophils # (A) 0.2 k/uL (0-0.7); Eosinophils % (A) 3 %; HCT 40.9 % (39.0-53.0); HGB 13.8 gm/dL (13.0-17.5); Lymphocytes # (A) 2.1 k/uL (1.0-4.8); Lymphocytes % (A) 43 %; MCH 32.1 pg (25.0-35.0); MCHC 33.7 g/dL (31.0-37.0); MCV 95.3 fL (80.0-100.0); Mean Platelet Volume 8.3; Monocytes # (A) 0.3 k/uL (0-1.0); Monocytes % (A) 7 %; Neutrophils # (A) 2.1 k/uL (1.3-7.7); Neutrophils % (A) 43 %; Platelet Count 181 k/uL (150-450); RDW 14.1 % (11.5-15.5); WBC 4.9 k/uL (3.8-10.6)
[2020-12-12 08:22] LABS: ALT 23 U/L (4-49); AST 26 U/L (17-59); African American GFR (CKD) >90 (>60 ml/min/1.73 sqM); Albumin 3.3 g/dL (3.5-5.0); Albumin/Globulin Ratio 1.2; Alkaline Phosphatase 71 U/L (38-126); Anion Gap 6 mmol/L; Blood Urea Nitrogen 12 mg/dL (9-20); Calcium 8.8 mg/dL (8.4-10.2); Carbon Dioxide 25 mmol/L (22-30); Chloride 103 mmol/L (98-107); Globulin 2.7 g/dL; Glucose 169 mg/dL (74-99); Non-African American GFR(CKD) >90 (>60 ml/min/1.73 sqM); Phosphorus 2.9 mg/dL (2.5-4.5); Potassium 3.7 mmol/L (3.5-5.1); Sodium 134 mmol/L (137-145); Total Bilirubin 0.4 mg/dL (0.2-1.3)
[2020-12-12 08:32] LABS: Glucose,Whole Blood 170 mg/dL (75-99)
[2020-12-12] MEDS: metFORMIN 500 MG TAB PO SCH ×2 (09:59→17:14)
[2020-12-12] MEDS: PANTOPRAZOLE 40 MG TABLET PO SCH (09:59)
[2020-12-12] MEDS: INSULIN ASPART (NovoLOG) 100 UNIT/ML VIAL SQ SCH ×5 (09:59→21:24)
[2020-12-12] MEDS: amLODIPine 2.5 MG TAB PO SCH (10:00)
[2020-12-12] MEDS: DIVALPROEX ER 250 MG TAB.ER.24H PO SCH ×2 (10:00→21:24)
[2020-12-12] MEDS: LOSARTAN 50 MG TAB PO SCH (10:02)
[2020-12-12] MEDS: PRIMIDONE 50 MG TAB PO SCH ×3 (10:02→21:24)
[2020-12-12] MEDS: PRAVASTATIN SODIUM 20 MG TAB PO SCH (10:02)
[2020-12-12 10:29] LABS: Glucose,Whole Blood 401 mg/dL (75-99)
[2020-12-12 12:26] LABS: Glucose,Whole Blood 422 mg/dL (75-99)
--- NOTE | 2020-12-12 16:37 | P.PN ---
<Aaron Crabajal - Last Filed: 12/12/20 16:31> Subjective Progress Note Date: 12/12/20 Hospital course: Patient is a 55-year-old male with a past medical history of schizophrenia, Pa rkinson's disease, seizure disorder, hypertension, hyperlipidemia, and GERD. Patient presented to the hospital on 12/09/20 in care of his guardian with a chief complaint of paranoid behaviors and concerns that he was not taking medications appropriately. Patient reportedly lives independently but has been very paranoid and not taking medications. In the emergency department, patient was found to have significant elevation in glucose with blood glucose level of 658. He was treated with 3 L 0.9% normal saline bolus followed by infusion along with 10 units regular insulin, and 10 units of Levemir. Patient was admitted under our services to stepdown unit with consultation to psychiatry. Physical exam: Patient seen and fully evaluated at the bedside this morning. Blood glucose 170 this morning. Patient remains alert and oriented to person, place, and situation. He remains pleasant and cooperative. Patient reading newspaper this morning and eating pancakes for breakfast. Had discussion with patient regarding that it will be necessary for him to go to a different house upon discharge from the hospital because he is going to need help with his new medications to control his blood sugar. Patient agreed that he cannot give himself a shot. Patient seemed agreeable upon discharge plan. Currently discharge plan is for patient to be discharged on Monday. Patient being discharged to [facility] for continued care. Patient denied having any complaints this morning. Vital signs reviewed and stable. General: Nontoxic, no distress and appears stated age. Derm: Skin warm and dry, normal coloration for ethnicity. Head: Atraumatic, normocephalic and symmetric. Eyes: Patient would not make eye contact throughout assessment Mouth: no lip lesions, mucus membranes moist Cardiovascular: regular rate and rhythm with normal S1S2, no murmur, positive posterior tibial pulses bilaterally, and cap refill < 2 seconds. Lungs: Respirations even, regular, and unlabored on room air. Lungs CTA bilaterally, no rhonchi, no rales, no wheezing, and no accessory muscle usage. Abdominal: soft, nontender to palpation, no guarding, no appreciable organomegaly Ext: ROM intact. No gross muscle atrophy, no edema, no contractures Neuro: Speech clear, face symmetrical Psych: Paranoid behaviors, but appeared much more pleasant and cooperative daily.. Assessment and Plan of Care: Hyperglycemia, improved Metabolic alkalosis -Glucose levels have improved -We will discontinue sliding scale as patient will not be able to be placed on sliding scale at senior care or have individual/guardian come to home to administer insulin 4 times daily. To develop a safe discharge plan, patient will be started on metformin 500 mg twice a day and increase long-acting insulin Levemir to 20 units nightly. -Carb consistent diet -Hemoglobin A1c 12.9% Hypokalemia, replaced Hypophosphatemia, replaced -Replaced, we will continue to monitor with repeat a.m. labs. -Electrolyte replacement protocol Hyponatremia -Mainly pseudohyponatremia secondary to significant hyperglycemia, Sodium 121 with corrected sodium of 130. -Patient received 3 L bolus of IV fluids to treat significant hyperglycemia upon presentation. -Repeat corrected sodium 129 at this time, likely with underlying chronic hyponatremia secondary to daily use of antipsychotic medications -Continue gentle hydration with IV fluids. -Continued close monitoring with repeat a.m. labs. Schizophrenia Paranoid behaviors Agitation and anxiety -Continue daily medication regimen with Cogentin, Depakote, fluphenazine, Latuda, primidone, and quetiapine fumarate pending further recommendations from psychiatry. -Sitter at bedside to maintain safety. CODE STATUS: Full code DVT prophylaxis: Heparin Discussed with: Patient and RN Anticipated discharge date: Clinical course to determine Anticipated discharge place: Awaiting safe discharge plan at this time, likely senior care A total of 45 minutes was spent on the care of this complex patient more than 50% of the time was spent in counseling and care coordination. Objective - Vital Signs Vital signs: Vital Signs Temp 97.6 F 12/12/20 05:00 Pulse 80 12/12/20 05:00 Resp 16 12/12/20 05:00 BP 110/71 12/12/20 05:00 Pulse Ox 93 L 12/12/20 05:00 Intake & Output 12/11/20 12/12/20 12/12/20 18:59 06:59 18:59 Intake Total 1990 Output Total 300 400 Balance -300 1590 Weight 98 kg 100.3 kg Intake: Intake, IV Titration 1400 Amount Sodium Chloride 0.9% 1, 900 000 ml @ 75 mls/hr IV . [id number] [facility] Rx#:[id number] Sodium Phosphate 10 mmol 500 In Sodium Chloride 0.9% 250 ml @ 125 mls/hr IVPB Q2H [facility] Rx#:[id number] Oral 590 Output: Urine 300 400 Other: # Voids 1 # Bowel Movements 1 - Labs CBC & Chem 7: 12/12/20 07:12 12/12/20 07:12 Labs: Abnormal Lab Results - Last 24 Hours (Table) 12/11/20 12/11/20 12/11/20 Range/Units 02:44 17:17 20:42 Sodium (137-145) mmol/L Creatinine (0.66-1.25) mg/dL Glucose (74-99) mg/dL POC Glucose (mg/dL) 369 H 410 H (75-99) mg/dL Phosphorus 1.6 L (2.5-4.5) mg/dL Total Protein (6.3-8.2) g/dL Albumin (3.5-5.0) g/dL 12/11/20 12/12/20 12/12/20 Range/Units 23:18 07:12 08:30 Sodium 134 L (137-145) mmol/L Creatinine 0.64 L (0.66-1.25) mg/dL Glucose 169 H (74-99) mg/dL POC Glucose (mg/dL) 316 H 170 H (75-99) mg/dL Phosphorus (2.5-4.5) mg/dL Total Protein 6.0 L (6.3-8.2) g/dL Albumin 3.3 L (3.5-5.0) g/dL 12/12/20 Range/Units 10:27 Sodium (137-145) mmol/L Creatinine (0.66-1.25) mg/dL Glucose (74-99) mg/dL POC Glucose (mg/dL) 401 H (75-99) mg/dL Phosphorus (2.5-4.5) mg/dL Total Protein (6.3-8.2) g/dL Albumin (3.5-5.0) g/dL <Em Foley - Last Filed: 12/12/20 18:51> Subjective Aaron Carbajal NP rendered care for this patient independently, reviewed the findings and plan as documented in the note above. I did not physically speak with or examine the patient on this date. Objective - Vital Signs Vital signs: Vital Signs Temp 97.9 F 12/12/20 12:19 Pulse 71 12/12/20 12:19 Resp 18 12/12/20 12:19 BP 111/75 12/12/20 12:19 Pulse Ox 95 12/12/20 12:19 Intake & Output 12/11/20 12/12/20 12/12/20 18:59 06:59 18:59 Intake Total 1990 600 Output Total 300 400 Balance -300 1590 600 Weight 98 kg 100.3 kg Intake: Intake, IV Titration 1400 Amount Sodium Chloride 0.9% 1, 900 000 ml @ 75 mls/hr IV . [id number] [facility] Rx#:[id number] Sodium Phosphate 10 mmol 500 In Sodium Chloride 0.9% 250 ml @ 125 mls/hr IVPB Q2H [facility] Rx#:[id number] Oral 590 600 Output: Urine 300 400 Other: # Voids 1 2 # Bowel Movements 1 - Labs CBC & Chem 7: 12/12/20 07:12 12/12/20 07:12 Labs: Abnormal Lab Results - Last 24 Hours (Table) 12/11/20 12/11/20 12/12/20 Range/Units 20:42 23:18 07:12 Sodium 134 L (137-145) mmol/L Creatinine 0.64 L (0.66-1.25) mg/dL Glucose 169 H (74-99) mg/dL POC Glucose (mg/dL) 410 H 316 H (75-99) mg/dL Total Protein 6.0 L (6.3-8.2) g/dL Albumin 3.3 L (3.5-5.0) g/dL 12/12/20 12/12/20 12/12/20 Range/Units 08:30 10:27 12:21 Sodium (137-145) mmol/L Creatinine (0.66-1.25) mg/dL Glucose (74-99) mg/dL POC Glucose (mg/dL) 170 H 401 H 422 H (75-99) mg/dL Total Protein (6.3-8.2) g/dL Albumin (3.5-5.0) g/dL 12/12/20 Range/Units 17:25 Sodium (137-145) mmol/L Creatinine (0.66-1.25) mg/dL Glucose (74-99) mg/dL POC Glucose (mg/dL) 204 H (75-99) mg/dL Total Protein (6.3-8.2) g/dL Albumin (3.5-5.0) g/dL
[2020-12-12 17:28] LABS: Glucose,Whole Blood 204 mg/dL (75-99)
[2020-12-12 20:35] LABS: Glucose,Whole Blood 241 mg/dL (75-99)
[2020-12-12] MEDS: INSULIN DETEMIR (LEVEMIR) 100 UNIT/ML SYR SQ SCH (21:24)
[2020-12-12] MEDS: traZODone HCL 100 MG TAB PO SCH (21:24)
[2020-12-13 07:09] LABS: Basophils % (A) 1 %; Eosinophils # (A) 0.1 k/uL (0-0.7); Eosinophils % (A) 2 %; HCT 40.6 % (39.0-53.0); HGB 13.7 gm/dL (13.0-17.5); Lymphocytes # (A) 2.3 k/uL (1.0-4.8); Lymphocytes % (A) 38 %; MCH 31.7 pg (25.0-35.0); MCHC 33.8 g/dL (31.0-37.0); MCV 93.6 fL (80.0-100.0); Mean Platelet Volume 8.4; Monocytes # (A) 0.4 k/uL (0-1.0); Monocytes % (A) 7 %; Neutrophils # (A) 2.9 k/uL (1.3-7.7); Neutrophils % (A) 49 %; Platelet Count 208 k/uL (150-450); RBC 4.34 m/uL (4.30-5.90); RDW 13.6 % (11.5-15.5)
[2020-12-13 07:26] LABS: Glucose,Whole Blood 153 mg/dL (75-99)
[2020-12-13] MEDS: DIVALPROEX ER 250 MG TAB.ER.24H PO SCH ×2 (09:06→21:34)
[2020-12-13] MEDS: amLODIPine 2.5 MG TAB PO SCH (09:06)
[2020-12-13] MEDS: metFORMIN 500 MG TAB PO SCH ×2 (09:07→17:47)
[2020-12-13] MEDS: PRIMIDONE 50 MG TAB PO SCH ×3 (09:07→21:36)
[2020-12-13] MEDS: PRAVASTATIN SODIUM 20 MG TAB PO SCH (09:07)
[2020-12-13] MEDS: LOSARTAN 50 MG TAB PO SCH (09:07)
[2020-12-13] MEDS: PANTOPRAZOLE 40 MG TABLET PO SCH (09:07)
[2020-12-13] MEDS: HEPARIN SODIUM,PORCINE/PF 5,000 UNIT/0.5 ML SYRINGE SQ SCH ×3 (09:07→23:26)
[2020-12-13] MEDS: INSULIN ASPART (NovoLOG) 100 UNIT/ML VIAL SQ SCH ×3 (09:12→17:57)
[2020-12-13 10:54] LABS: African American GFR (CKD) 123.1 (60.0-200.0); Anion Gap 13.3 mmol/L (4.00-12.00); BUN/Creat Ratio 12.14 Ratio (12.00-20.00); Blood Urea Nitrogen 8.5 mg/dL (9.0-27.0); Calcium 9.1 mg/dL (8.7-10.3); Carbon Dioxide 20.7 mmol/L (21.6-31.8); Magnesium 1.9 mg/dL (1.5-2.4); Non-African American GFR(CKD) 106.2 (60.0-200.0); Potassium 3.6 mmol/L (3.5-5.5)
[2020-12-13 12:24] LABS: Glucose,Whole Blood 253 mg/dL (75-99)
[2020-12-13] MEDS: SODIUM CHLORIDE 0.9% 1,000 ML IV SCH (13:15)
--- NOTE | 2020-12-13 13:34 | P.PN ---
Subjective Progress Note Date: 12/13/20 Hospital course: Patient is a 55-year-old male with a past medical history of schizophrenia, Parkinson's disease, seizure disorder, hypertension, hyperlipidemia, and GERD. Patient presented to the hospital on 12/09/20 in care of his guardian with a chief complaint of paranoid behaviors and concerns that he was not taking medications appropriately. Patient reportedly lives independently but has been very paranoid and not taking medications. In the emergency department, patient was found to have significant elevation in glucose with blood glucose level of 6 58. He was treated with 3 L 0.9% normal saline bolus followed by infusion along with 10 units regular insulin, and 10 units of Levemir. Patient was admitted under our services to stepdown unit with consultation to psychiatry. Physical exam: Patient seen and fully evaluated at the bedside this morning. Blood glucose 153 this morning. Patient remains alert and oriented to person, place, and situation. He remains pleasant and cooperative. He denies having any complaints or needs this morning including headache, lightheadedness, dizziness, chest pain, shortness of breath, abdominal pain, nausea, or vomiting. Patient does report 2 episodes of diarrhea over the past 24 hours. This is likely secondary to starting metformin in patient informed this should improve. Currently discharge plan continues to be for patient to be discharged tomorrow to [facility] for continued care. Vital signs reviewed and stable. General: Nontoxic, no distress and appears stated age. Derm: Skin warm and dry, normal coloration for ethnicity. Head: Atraumatic, normocephalic and symmetric. Eyes: Patient would not make eye contact throughout assessment Mouth: no lip lesions, mucus membranes moist Cardiovascular: regular rate and rhythm with normal S1S2, no murmur, positive posterior tibial pulses bilaterally, and cap refill < 2 seconds. Lungs: Respirations even, regular, and unlabored on room air. Lungs CTA bilaterally, no rhonchi, no rales, no wheezing, and no accessory muscle usage. Abdominal: soft, nontender to palpation, no guarding, no appreciable organomegaly Ext: ROM intact. No gross muscle atrophy, no edema, no contractures Neuro: Speech clear, face symmetrical Psych: Paranoid behaviors, but appeared much more pleasant and cooperative daily.. Assessment and Plan of Care: Hyperglycemia, improved Metabolic alkalosis -Glucose levels have improved -To develop a safe discharge plan, patient will be started on metformin 500 mg twice a day, NovoLog 4 units with meals 3 times daily and Levemir to 20 units nightly. -Carb consistent diet -Hemoglobin A1c 12.9% Hypokalemia, replaced Hypophosphatemia, replaced -Replaced, we will continue to monitor with repeat a.m. labs. -Electrolyte replacement protocol Hyponatremia, resolved -Mainly pseudohyponatremia secondary to significant hyperglycemia, Sodium 121 with corrected sodium of 130. -Patient received 3 L bolus of IV fluids to treat significant hyperglycemia upon presentation. -Repeat corrected sodium 129 at this time, likely with underlying chronic hyponatremia secondary to daily use of antipsychotic medications -Continue gentle hydration with IV fluids. -Continued close monitoring with repeat a.m. labs. Schizophrenia Paranoid behaviors Agitation and anxiety - Psychiatry following -Psychiatry recommended continuation of Prolixin 10 mg by mouth twice a daily for psychosis, changing Depakote to 750 mg twice daily for mood stabilization, discontinuation of Seroquel and Latuda and added on trazodone 50 mg nightly for insomnia/mood changes. CODE STATUS: Full code DVT prophylaxis: Heparin Discussed with: Patient and RN Anticipated discharge date: Tomorrow morning Anticipated discharge place: tentative discharge plan is for discharge tomorrow to [facility] for continued care. A total of 45 minutes was spent on the care of this complex patient more than 50% of the time was spent in counseling and care coordination. Objective - Vital Signs Vital signs: Vital Signs Temp 97.5 F L 12/13/20 05:00 Pulse 96 12/13/20 05:00 Resp 16 12/13/20 05:00 BP 143/89 12/13/20 05:00 Pulse Ox 95 12/13/20 05:00 Intake & Output 12/12/20 12/13/20 12/13/20 19:59 06:59 18:59 Intake Total Balance Weight Intake: Intake, IV Titration Amount Sodium Chloride 0.9% 1, 000 ml @ 75 mls/hr IV . [id number] [facility] Rx#:[id number] Oral Other: # Voids # Bowel Movements - Labs CBC & Chem 7: 12/13/20 06:11 12/13/20 06:11 Labs: Abnormal Lab Results - Last 24 Hours (Table) 12/12/20 12/12/20 12/12/20 Range/Units 10:27 12:21 17:25 POC Glucose (mg/dL) 401 H 422 H 204 H (75-99) mg/dL 12/12/20 12/13/20 Range/Units 20:34 07:23 POC Glucose (mg/dL) 241 H 153 H (75-99) mg/dL
[2020-12-13 17:13] LABS: Glucose,Whole Blood 228 mg/dL (75-99)
[2020-12-13 20:38] LABS: Glucose,Whole Blood 186 mg/dL (75-99)
[2020-12-13] MEDS: traZODone HCL 100 MG TAB PO SCH (21:34)
[2020-12-13] MEDS: INSULIN DETEMIR (LEVEMIR) 100 UNIT/ML SYR SQ SCH (21:35)
[2020-12-14] MEDS: SODIUM CHLORIDE 0.9% 1,000 ML IV SCH (05:28)
[2020-12-14 07:40] LABS: Glucose,Whole Blood 177 mg/dL (75-99)
[2020-12-14] MEDS: HEPARIN SODIUM,PORCINE/PF 5,000 UNIT/0.5 ML SYRINGE SQ SCH ×3 (08:52→23:04)
[2020-12-14] MEDS: PANTOPRAZOLE 40 MG TABLET PO SCH (08:52)
[2020-12-14] MEDS: LOSARTAN 50 MG TAB PO SCH (08:52)
[2020-12-14] MEDS: metFORMIN 500 MG TAB PO SCH ×2 (08:52→16:43)
[2020-12-14] MEDS: PRIMIDONE 50 MG TAB PO SCH ×3 (08:52→20:53)
[2020-12-14] MEDS: INSULIN ASPART (NovoLOG) 100 UNIT/ML VIAL SQ SCH (08:52)
[2020-12-14] MEDS: DIVALPROEX ER 250 MG TAB.ER.24H PO SCH ×2 (08:53→20:53)
[2020-12-14] MEDS: PRAVASTATIN SODIUM 20 MG TAB PO SCH (08:53)
[2020-12-14] MEDS: amLODIPine 2.5 MG TAB PO SCH (08:53)
--- NOTE | 2020-12-14 12:08 | P.PN ---
Progress Note - Text Progress Note Date: 12/14/20 Interval History: Patient was seen for psychiatric follow-up regarding patient's schizophrenia. Patient appeared to be more awake today and pleasant. He was watching television. There is taking care patient states that patient has been doing much better and not endorsing any suicidal thoughts and has been sleeping well. Patient states that he slept well last night and through the weekend. He claims that overall he is doing much better. He states that he believes that his tremors have improved mildly as well. He was observed to have tremors bilaterally in both his upper and lower extremities. He claims that he wants to know where he'll be discharged and 1. She is denying any depression or anxiety today. He states that he needs his medications. At this time patient denies any suicidal or homical ideations, intent or plan. Patient denies any auditory, visual hallucinations and denies any paranoia or delusions. Mental Status Exam: General Appearance: Patient appears to be overweight, stated age is alert, attempts to cooperate. Patient appears to have improving hygiene and grooming wearing hospital gown with fair eye contact. Behavior: Patient is calmly lying in bed without any agitated behavior. He appears to have bilateral resting tremors in his upper and lower extremities Speech: Patient's speech is fluent and nonpressured. Rambles less today Mood/Affect: Patient reports their mood is "good", affect is congruent Suicidality/Homicidality: Patient denies having any suicidal or homicidal ideation intent or plan. Perceptions: Patient denies any visual hallucinations and denies any auditory hallucinations Though content/process: Tangential at times, rambles less now. more goal oriented and logical today. future oriented. Memory and concentration: AOX2, does not know what today's date is. Judgment and insight: chronically limited, improved Assessment schizophrenia Plan: -At this time patient will not meet criteria for inpatient psych -Would recommend the following medication changes/additions: Continue with Prolixin by mouth 10 mg twice a day for psychosis. trazodone 100 mg qhs for inosmnia/mood, PRN BEnadryl 25 mg qhs prn for insomnia. continue with depakote 750 mg bid for mood stabilization. -continue with medical treatment of underlying comorbities. -Communicated plan to patient's nurse and hospitalist attending -At this time psychiatry will sign off on patients case and is ok to follow up with Dr. Walters as an outpt for . -Please contact with any questions.
[2020-12-14 12:30] LABS: Glucose,Whole Blood 194 mg/dL (75-99)
--- NOTE | 2020-12-14 13:41 | P.PN ---
<Aaron Carbajal - Last Filed: 12/14/20 13:34> Subjective Progress Note Date: 12/14/20 Hospital course: Patient is a 55-year-old male with a past medical history of schizophrenia, Pa rkinson's disease, seizure disorder, hypertension, hyperlipidemia, and GERD. Patient presented to the hospital on 12/09/20 in care of his guardian with a chief complaint of paranoid behaviors and concerns that he was not taking medications appropriately. Patient reportedly lives independently but has been very paranoid and not taking medications. In the emergency department, patient was found to have significant elevation in glucose with blood glucose level of 658. He was treated with 3 L 0.9% normal saline bolus followed by infusion along with 10 units regular insulin, and 10 units of Levemir. Patient was admitted under our services to stepdown unit with consultation to psychiatry. Physical exam: Patient seen and fully evaluated at the bedside this morning. Blood glucose 177 this morning. Patient remains alert and oriented to person, place, and situation. He remains pleasant and cooperative. He denies having any complaints or needs this morning including headache, lightheadedness, dizziness, chest pain, shortness of breath, abdominal pain, nausea, vomiting, or experiencing any further episodes of diarrhea. Initial discharge plan to [facility] was denied, social work and case management continue working adamantly on possibilities of placement. Additional changes made to insulin regimen to decrease frequency per day. Levemir increased to 28 units daily and metformin increased to 1000 mg twice daily. We will continue to monitor while awaiting safe discharge arrangements. Vital signs reviewed and stable. General: Nontoxic, no distress and appears stated age. Derm: Skin warm and dry, normal coloration for ethnicity. Head: Atraumatic, normocephalic and symmetric. Eyes: Patient would not make eye contact throughout assessment Mouth: no lip lesions, mucus membranes moist Cardiovascular: regular rate and rhythm with normal S1S2, no murmur, positive posterior tibial pulses bilaterally, and cap refill < 2 seconds. Lungs: Respirations even, regular, and unlabored on room air. Lungs CTA bilaterally, no rhonchi, no rales, no wheezing, and no accessory muscle usage. Abdominal: soft, nontender to palpation, no guarding, no appreciable organomegaly Ext: ROM intact. No gross muscle atrophy, no edema, no contractures Neuro: Speech clear, face symmetrical Psych: Paranoid behaviors, but appeared much more pleasant and cooperative daily.. Assessment and Plan of Care: Hyperglycemia, improved Metabolic alkalosis -Glucose levels have improved -To develop a safe discharge plan, patient will be started on metformin 500 mg t wice a day, NovoLog 4 units with meals 3 times daily and Levemir to 20 units nightly. -Carb consistent diet -Hemoglobin A1c 12.9% Hypokalemia, replaced Hypophosphatemia, replaced -Replaced, we will continue to monitor with repeat a.m. labs. -Electrolyte replacement protocol Hyponatremia, resolved -Mainly pseudohyponatremia secondary to significant hyperglycemia, Sodium 121 with corrected sodium of 130. -Patient received 3 L bolus of IV fluids to treat significant hyperglycemia upon presentation. -Repeat corrected sodium 129 at this time, likely with underlying chronic hyponatremia secondary to daily use of antipsychotic medications -Continue gentle hydration with IV fluids. -Continued close monitoring with repeat a.m. labs. Schizophrenia Paranoid behaviors Agitation and anxiety - Psychiatry following -Psychiatry recommended continuation of Prolixin 10 mg by mouth twice a daily for psychosis, changing Depakote to 750 mg twice daily for mood stabilization, discontinuation of Seroquel and Latuda and added on trazodone 50 mg nightly for insomnia/mood changes. CODE STATUS: Full code DVT prophylaxis: Heparin Discussed with: Patient and RN Anticipated discharge date: Patient medically stable for discharge once placement can be made. Anticipated discharge place: Awaiting safe discharge arrangements to be made A total of 45 minutes was spent on the care of this complex patient more than 50% of the time was spent in counseling and care coordination. Objective - Vital Signs Vital signs: Vital Signs Temp 97.8 F 12/14/20 05:00 Pulse 71 12/14/20 05:00 Resp 16 12/14/20 05:00 BP 126/89 12/14/20 05:00 Pulse Ox 91 L 12/14/20 05:00 Intake & Output 12/13/20 12/14/20 12/14/20 18:59 06:59 18:59 Intake Total 1380 Balance 1380 Weight 102.6 kg Intake: Oral 1380 Other: Voiding Method Urinal Toilet Urinal # Voids 2 2 - Labs CBC & Chem 7: 12/13/20 06:11 12/13/20 06:11 Labs: Abnormal Lab Results - Last 24 Hours (Table) 12/13/20 12/13/20 12/13/20 Range/Units 06:11 11:57 17:08 Carbon Dioxide 20.7 L (21.6-31.8) mmol/L Anion Gap 13.30 H (4.00-12.00) mmol/L BUN 8.5 L (9.0-27.0) mg/dL Glucose 138 H (70-110) mg/dL POC Glucose (mg/dL) 253 H 228 H (75-99) mg/dL 12/13/20 12/14/20 Range/Units 20:37 07:37 Carbon Dioxide (21.6-31.8) mmol/L Anion Gap (4.00-12.00) mmol/L BUN (9.0-27.0) mg/dL Glucose (70-110) mg/dL POC Glucose (mg/dL) 186 H 177 H (75-99) mg/dL <Em Foley - Last Filed: 12/14/20 14:52> Subjective Patient seen and examined independently. Patient was also seen by Aaron Carbajal NP and case was discussed. I am in agreement with subjective, physical exam, assessment and plan as written above and amended below. Patient reports feeling anxious but not being able to go back to his apartment, he knows he needs help with his medications and with injecting himself. He denies any chest pain, shortness of breath. He is having some loose stools but no overt diarrhea and no abdominal cramping. General: non toxic, no distress, appears at stated age Derm: warm, dry Head: atraumatic, normocephalic, symmetric Eyes: EOMI, no lid lag, anicteric sclera Mouth: no lip lesion, mucus membranes moist Cardiovascular: S1S2 reg, no murmur, positive posterior tibial pulse bilateral, Lungs: CTA bilateral, no rhonchi, no rales , no accessory muscle use Abdominal: soft, nontender to palpation, no guarding, no appreciable organomegaly Ext: no gross muscle atrophy, no edema, no contractures Neuro: CN II-XI grossly intact, no focal neuro deficits Psych: Alert, oriented, appropriate affect Objective - Vital Signs Vital signs: Vital Signs Temp 98.3 F 12/14/20 12:58 Pulse 79 12/14/20 12:58 Resp 17 12/14/20 12:58 BP 120/80 12/14/20 12:58 Pulse Ox 95 12/14/20 12:58 Intake & Output 12/13/20 12/14/20 12/14/20 18:59 06:59 18:59 Intake Total 1380 450 Balance 1380 450 Weight 102.6 kg Intake: Intake, IV Titration 450 Amount Sodium Chloride 0.9% 1, 450 000 ml @ 75 mls/hr IV . [id number] [facility] Rx#:[id number] Oral 1380 Other: Voiding Method Urinal Toilet Toilet Urinal Urinal # Voids 2 2 2 - Labs CBC & Chem 7: 12/13/20 06:11 12/13/20 06:11 Labs: Abnormal Lab Results - Last 24 Hours (Table) 12/13/20 12/13/20 12/14/20 Range/Units 17:08 20:37 07:37 POC Glucose (mg/dL) 228 H 186 H 177 H (75-99) mg/dL 12/14/20 Range/Units 12:29 POC Glucose (mg/dL) 194 H (75-99) mg/dL
[2020-12-14 17:03] LABS: Glucose,Whole Blood 231 mg/dL (75-99)
--- NOTE | 2020-12-14 18:43 | CDI ---
Documentation Clarification Form Date: 12/14/2020 06:11:00 PM From: Suzanne Mccallum RN, CCDS Admit Date: 12/10/2020 12:18:00 AM Patient Name: Larry Sosa Visit Number: [id number] Discharge Date: ATTENTION: The Clinical Documentation Specialists (CDI) and [facility] Coding Staff appreciate your assistance in clarifying documentation. Please respond to the clarification below the line at the bottom and electronically sign. The CDI & [facility] Coding staff will review the response and follow-up if needed. Please note: Queries are made part of the Legal Health Record. If you have any questions, please contact the author of this message via ITS. Dr. Em Foley Hyperglycemia is documented in your progress on 12/10 and subsequent progress notes. The H/P has DKA, unspecified type. For each diagnosis, documentation must be clear to determine if the condition was present at the time of the patients inpatient admission or developed during the hospital stay. Additional clarification regarding the [insert diagnosis is requested. History/Risk Factors: Neurologic disorder, Parkinson disease, Seizure Paranoid Schizophrenia Clinical Indicators: 55-year-old present to emergency with family concern he is not taking his medications, been having paranoid ideation. Workup in the ED revealed patient is in DKA, this is a new diagnosis to him. 12/09 Labs: VGB pH 7.44, pCO2, HCO3 35, Glucose 530; Urine glucose 4+, Ketones 1+: 11 Acetone, Positive 121/4 Hemoglobin A1c: 12.9 Treatment: Monitor blood glucose AC&HS per orders Diabetic Education Carb consistent diet Glycemic Protocol Novolog sliding scale Levemir 28 Units SQ HS Metformin HCL 1,000MG PO BID-W/Meals .9NS @ 75 MLS HR 12/10-12/14 In your professional opinion, can you please clarify which diagnosis, after study, was the reason chiefly responsible for the admission? [ ] Diabetes Mellitus with DKA (specify type of DM) [ ] Hyperglycemia without DM [ ] Other, please specify [ ] Unable to determine (Template Last Revised: April 2020) DM 2 with hyperglycemia without DKA MTDD
[2020-12-14 20:38] LABS: Glucose,Whole Blood 246 mg/dL (75-99)
[2020-12-14] MEDS: traZODone HCL 100 MG TAB PO SCH (20:54)
[2020-12-14] MEDS ORDERED: INSULIN DETEMIR (LEVEMIR) 100 UNIT/ML SYR SQ SCH (21:00)
[2020-12-15 07:00] LABS: Glucose,Whole Blood 107 mg/dL (75-99)
[2020-12-15] MEDS: amLODIPine 2.5 MG TAB PO SCH (08:25)
[2020-12-15] MEDS: metFORMIN 500 MG TAB PO SCH (08:25)
[2020-12-15] MEDS: PANTOPRAZOLE 40 MG TABLET PO SCH (08:25)
[2020-12-15] MEDS: HEPARIN SODIUM,PORCINE/PF 5,000 UNIT/0.5 ML SYRINGE SQ SCH (08:25)
[2020-12-15] MEDS: LOSARTAN 50 MG TAB PO SCH (08:25)
[2020-12-15] MEDS: DIVALPROEX ER 250 MG TAB.ER.24H PO SCH (08:26)
[2020-12-15] MEDS: PRIMIDONE 50 MG TAB PO SCH (08:26)
[2020-12-15] MEDS: PRAVASTATIN SODIUM 20 MG TAB PO SCH (08:26)
[2020-12-15 12:30] LABS: Glucose,Whole Blood 155 mg/dL (75-99)
[2020-12-15 12:44] VITALS: BP 112/75; PULSE 114; RESP 18; TEMP 98.1
--- NOTE | 2020-12-15 15:22 | P.DS ---
Providers Date of admission: 12/10/20 00:18 Expected date of discharge: 12/15/20 Attending physician: Stacey Miller MD Consults: 12/09/20 19:49 Consult Physician Routine Consulting Provider: Chris Woodson Consult Reason/Comments: history of paranoid schizophrenia, worsening delusions per family Do you want consulting provider notified?: Yes Primary care physician: Sangeeta Andino MD Hospital Course: Discharge Diagnosis: Hyperglycemia due to new onset diabetes metabolic alkalossi Hypokalemia Hypophosphatemia Hyponatremia Schizophrenia Paranoid behaviors Agitation and anxiety Hospital Course: Patient seen and fully evaluated at the bedside this morning. Blood glucose 177 this morning. Patient remains alert and oriented to person, place, and situation. He remains pleasant and cooperative. He denies having any complaints or needs this morning including headache, lightheadedness, dizziness, chest pain, shortness of breath, abdominal pain, nausea, vomiting, or experiencing any further episodes of diarrhea. Initial discharge plan to [facility] was denied, social work and case management continue working adamantly on possibilities of placement. Additional changes made to insulin regimen to decrease frequency per day. Levemir increased to 28 units daily and metformin increased to 1000 mg twice daily. His AM blood sugar was 107 and long acting insulin was decreased to 26 units. He was determined stable for discharge.Social work has worked with guardian who will need to ensure patient has a safe way to administer insulin. He will need a glucometer to test threee times daily for insulin dependent diabetes. He was seen by and his psych medications were adjusted. He was doing well and determined stable for discharge. Follow-up: Dr. Bauman in 1-2 days Patient seen and examined at bedside. Denies nausea, vomiting, diarrhea, chest pain, shortness of breath Vital signs reviewed and stable. General: non toxic, no distress, appears at stated age Derm: warm, dry Head: atraumatic, normocephalic, symmetric Eyes: EOMI, no lid lag, anicteric sclera Mouth: no lip lesion, mucus membranes moist Cardiovascular: S1S2 reg, no murmur, positive posterior tibial pulse bilateral, Lungs: CTA bilateral, no rhonchi, no rales , no accessory muscle use Abdominal: soft, nontender to palpation, no guarding, no appreciable organomegaly Ext: no gross muscle atrophy, no edema, no contractures Neuro: CN II-XI grossly intact, no focal neuro deficits, + resting tremors Psych: Alert, oriented, appropriate affect A total of 37 minutes of time were spent preparing this complex discharge summary . Patient Condition at Discharge: Stable Plan - Discharge Summary Discharge Rx Participant: No New Discharge Prescriptions: New Divalproex ER [Depakote ER] 750 mg PO BID #180 tab traZODone HCL [Desyrel] 100 mg PO HS #30 tab metFORMIN HCL [metFORMIN HCL ER Osmotic] 1,000 mg PO DAILY #30 tab Benztropine Mesylate [Cogentin] 1 mg PO BID PRN #60 tab PRN Reason: muscles spasms/EPS reaction Insulin Detemir (Levemir) [Levemir] 26 unit SQ HS #5 pen Continue amLODIPine [Norvasc] 2.5 mg PO DAILY Primidone [Mysoline] 50 mg PO TID Losartan [Cozaar] 50 mg PO DAILY fluPHENAZine HCl [fluPHENAZine HCL] 10 mg PO BID Omeprazole 40 mg PO DAILY Cholecalciferol [Vitamin D3 (25 Mcg = 1000 Iu)] 25 mcg PO DAILY Chlorthalidone 50 mg PO DAILY Pravastatin Sodium [Pravachol] 20 mg PO DAILY Discontinued Divalproex ER [Depakote ER] 500 mg PO TID Benztropine Mesylate [Cogentin] 2 mg PO BID QUEtiapine FUMARATE 300 mg PO HS Lurasidone HCl [Latuda] 60 mg PO HS Furosemide [Lasix] 40 mg PO DAILY Discharge Medication List amLODIPine [Norvasc] 2.5 mg PO DAILY 10/21/15 [History] Primidone [Mysoline] 50 mg PO TID 05/26/16 [History] Losartan [Cozaar] 50 mg PO DAILY 03/14/19 [History] fluPHENAZine HCl [fluPHENAZine HCL] 10 mg PO BID 03/14/19 [History] Chlorthalidone 50 mg PO DAILY 12/09/20 [History] Cholecalciferol [Vitamin D3 (25 Mcg = 1000 Iu)] 25 mcg PO DAILY 12/09/20 [History] Omeprazole 40 mg PO DAILY 12/09/20 [History] Pravastatin Sodium [Pravachol] 20 mg PO DAILY 12/09/20 [History] Benztropine Mesylate [Cogentin] 1 mg PO BID PRN #60 tab 12/15/20 [Rx] Divalproex ER [Depakote ER] 750 mg PO BID #180 tab 12/15/20 [Rx] Insulin Detemir (Levemir) [Levemir] 26 unit SQ HS #5 pen 12/15/20 [Rx] metFORMIN HCL [metFORMIN HCL ER Osmotic] 1,000 mg PO DAILY #30 tab 12/15/20 [Rx] traZODone HCL [Desyrel] 100 mg PO HS #30 tab 12/15/20 [Rx] Follow up Appointment(s)/Referral(s): Sangeeta Andino MD [Primary Care Provider] - 1-2 days [facility] Visiting Nurse, [NON-STAFF] - 1 Week Patient Instructions/Handouts: Type 2 Diabetes in Adults: New Diagnosis (DC) Activity/Diet/Wound Care/Special Instructions: Activity: as tolerated Diet: diabetic Special Instructions: NOTE Patient has legal guardian: Lionel Marinelli Pre- discharge to notify of discharge. Check Blood sugars once daily in the morning and make a list Patient has a new diagnosis of diabetes and will need a glucometer to test 3 times daily as he is managed by insulin. Discharge Disposition: HOME SELF-CARE
[2020-12-15] MEDS ORDERED: INSULIN DETEMIR (LEVEMIR) 100 UNIT/ML SYR SQ SCH (21:00)
== END 2020-12-15 16:44 | disposition home health service (06) | DRG 638 ==
LOC: EC 14:53 → 3SCARD 12-10 00:18 → 5NMEDONC 12-10 12:35
PROVIDERS: ADMIT Internal Medicine; ATTEND Internal Medicine
DX: E11.65 Type 2 diabetes mellitus with hyperglycemia (principal); E87.1 Hypo-osmolality and hyponatremia; E87.4 Mixed disorder of acid-base balance; F20.0 Paranoid schizophrenia; E78.5 Hyperlipidemia, unspecified; E83.39 Other disorders of phosphorus metabolism; E86.0 Dehydration; E87.6 Hypokalemia; E87.8 Other disorders of electrolyte and fluid balance, not elsewhere classified; Z20.822 Contact with and (suspected) exposure to COVID-19; I10 Essential (primary) hypertension; Z79.899 Other long term (current) drug therapy; K21.9 Gastro-esophageal reflux disease without esophagitis; F31.9 Bipolar disorder, unspecified; G20 Parkinson's disease; G40.909 Epilepsy, unspecified, not intractable, without status epilepticus
CPT/HCPCS: 36415; 71046; 80048; 80051; 80053; 80164; 80188; 80306; 80320; 81003; 82009; 82075; 82565; 82803; 82947; 83036; 83605; 83735; 83930; 84100; 84132; 84520; 85025; 85027; 87635; 93005; 96361; 96374; 99285

== ENCOUNTER 2021-03-12 13:07 | Emergency (ER) | payer MEDICARE, OTHER ==
[2021-03-12 13:20] VITALS: RESP 18
[2021-03-12] MEDS ORDERED: LIDOCAINE 1% INJ 10MG/ML (20 ML MDV) SQ ONE (13:28)
[2021-03-12] MEDS ORDERED: DIPH,PERTUS(ACELL)TETVAC-LF 0.5 ML VIAL IM ONE (13:29)
[2021-03-12] MEDS ORDERED: TOPICAL SKIN ADHESIVE 1 EACH AMP TOPICAL ONE (14:04)
--- NOTE | 2021-03-12 14:09 | ED ---
Wound/Laceration HPI - General Chief Complaint: Wound/Laceration Stated Complaint: R hand lac. Time Seen by Provider: 03/12/21 13:21 Source: patient, family Mode of arrival: ambulatory Limitations: no limitations - History of Present Illness Initial Comments: Patient is a 55-year-old male who presents with right middle finger laceration. Patient was cutting an onion around 12:30 today when his hand slipped and he cut his right middle finger with the knife. Patient had trouble controlling the bleeding. He is not on blood thinners. He reports full range of motion in the right hand and all 5 right digits and denies numbness/paresthesias. - Related Data Home Medications Medication Instructions Recorded Confirmed amLODIPine [Norvasc] 2.5 mg PO DAILY 10/21/15 12/09/20 Primidone [Mysoline] 50 mg PO TID 05/26/16 12/09/20 Losartan [Cozaar] 50 mg PO DAILY 03/14/19 12/09/20 fluPHENAZine HCl [fluPHENAZine HCL] 10 mg PO BID 03/14/19 12/09/20 Chlorthalidone 50 mg PO DAILY 12/09/20 12/09/20 Cholecalciferol [Vitamin D3 (25 25 mcg PO DAILY 12/09/20 12/09/20 Mcg = 1000 Iu)] Omeprazole 40 mg PO DAILY 12/09/20 12/09/20 Pravastatin Sodium [Pravachol] 20 mg PO DAILY 12/09/20 12/09/20 Previous Rx's Medication Instructions Recorded Benztropine Mesylate [Cogentin] 1 mg PO BID PRN #60 tab 12/15/20 Divalproex ER [Depakote ER] 750 mg PO BID #180 tab 12/15/20 Insulin Detemir (Levemir) [Levemir] 26 unit SQ HS #5 pen 12/15/20 metFORMIN HCL [metFORMIN HCL ER 1,000 mg PO DAILY #30 tab 12/15/20 Osmotic] traZODone HCL [Desyrel] 100 mg PO HS #30 tab 12/15/20 Allergies Allergy/AdvReac Type Severity Reaction Status Date / Time haloperidol [From Haldol] Allergy Unknown Unknown Verified 12/09/20 16:53 haloperidol lactate Allergy Unknown Unknown Verified 12/09/20 16:53 [From Haldol] risperidone [From Risperdal] AdvReac Unknown Unknown Verified 12/09/20 16:53 Review of Systems ROS Statement: Those systems with pertinent positive or pertinent negative responses have been documented in the HPI. ROS Other: All systems not noted in ROS Statement are negative. Past Medical History Past Medical History: GERD/Reflux, Hearing Disorder / Deafness, Hyperlipidemia, Hypertension, Neurologic Disorder, Sleep Apnea/CPAP/BIPAP Additional Past Medical History / Comment(s): Pt's sister denies pt having a seizure disorder, seizure disorder is in past medical record, idiopathic parkinson's per past medical record, hiatal hernia, colon polyp, diverticular disease, leg edema bilaterally, DEBRA/no device History of Any Multi-Drug Resistant Organisms: None Reported Past Surgical History: No Surgical Hx Reported Additional Past Surgical History / Comment(s): EGD, colonoscopy. Past Anesthesia/Blood Transfusion Reactions: No Reported Reaction Additional Past Anesthesia/Blood Transfusion Reaction / Comment(s): FIRST ANESTHETIC Past Psychological History: Bipolar, Schizophrenia Smoking Status: Never smoker Past Alcohol Use History: None Reported Past Drug Use History: None Reported - Past Family History Mother Family Medical History: Cancer Additional Family Medical History / Comment(s): Mother had breast cancer. Father Family Medical History: CVA/TIA, Hypertension, Myocardial Infarction ([place]) Additional Family Medical History / Comment(s): Father had MIs/cva's. General Exam Limitations: no limitations General appearance: alert, in no apparent distress Head exam: Present: atraumatic, normocephalic, normal inspection Eye exam: Present: normal appearance, PERRL, EOMI. Absent: scleral icterus, conjunctival injection, periorbital swelling Respiratory exam: Present: normal lung sounds bilaterally. Absent: respiratory distress, wheezes, rales, rhonchi, stridor Cardiovascular Exam: Present: regular rate, normal rhythm, normal heart sounds. Absent: systolic murmur, diastolic murmur, rubs, gallop, clicks Extremities exam: Present: full ROM (Right hand- flexion, extension, radial deviation, ulnar deviation. digits- flexion, extension, abduction, abduction, opposition), normal capillary refill, other (1 cm laceration at the tip of the right middle finger, neurovascularly intact) Neurological exam: Present: alert, oriented X3, CN II-XII intact Psychiatric exam: Present: normal affect, normal mood Course Vital Signs 03/12/21 13:17 Temperature 98.5 F Pulse Rate 80 Respiratory 18 Rate Blood Pressure 159/60 O2 Sat by Pulse 98 Oximetry Procedures - Laceration Laceration #1 Indication: laceration Site: upper extremity (Right middle finger) Size (cm): 1 Description: linear Depth: simple, single layer Sedation/Analgesia: none Pre-repair: wound explored, irrigated extensively, deep structures intact Size of Sutures: other (exofin ) Patient Tolerated Procedure: well, no complications Medical Decision Making - Medical Decision Making This is a 55-year-old male who presents to the emergency department with right middle finger laceration. I was able to stop the bleeding and used exofin to glue the laceration together. I did observe the patient for 15 minutes with no further bleeding. Return parameters discussed with patient. Disposition Clinical Impression: Laceration Disposition: HOME SELF-CARE Condition: Good Instructions (If sedation given, give patient instructions): Laceration (ED) Additional Instructions: Keep wound clean and dry. Return to emergency department to experience new, concerning, or worsening symptoms. Is patient prescribed a controlled substance at d/c from ED?: No Referrals: Sangeeta Andino MD [Primary Care Provider] - 1-2 days Time of Disposition: 15:24
[2021-03-12 15:42] VITALS: BP 144/62; PULSE 83; TEMP 98.6
== END 2021-03-12 15:39 | disposition home or self-care (01) ==
LOC: EC 13:07
DX: S61.212A Laceration without foreign body of right middle finger without damage to nail, initial encounter (principal); W26.0XXA Contact with knife, initial encounter; Z79.4 Long term (current) use of insulin; Z79.84 Long term (current) use of oral hypoglycemic drugs; K21.9 Gastro-esophageal reflux disease without esophagitis; E78.5 Hyperlipidemia, unspecified; I10 Essential (primary) hypertension; F31.9 Bipolar disorder, unspecified
CPT/HCPCS: 12001; 90471; 90715; 99282

== ENCOUNTER 2021-04-25 12:04 | Emergency (ER) | payer MEDICARE, OTHER ==
[2021-04-25 12:18] VITALS: BP 134/68; PULSE 79; RESP 20; TEMP 97.4
[2021-04-25] MEDS ORDERED: KETOROLAC 15 MG/ML 1 ML VIAL IM STA (12:44)
--- NOTE | 2021-04-25 12:47 | ED ---
General Adult HPI - General Chief complaint: Back Pain/Injury Stated complaint: back pain Time Seen by Provider: 04/25/21 12:05 Source: patient, RN notes reviewed, old records reviewed Mode of arrival: EMS Limitations: no limitations - History of Present Illness Initial comments: This is a 55-year-old male who presents emergency department stating that 3 days ago he started having some pain in the left lower back he points to the left iliac crest area. Patient states as of today he also has some pain in the lateral left hip. She states she's had no injury he doesn't remember hurting it. Patient denies any swelling to the area of redness to the area or ecchymosis. Patient states it does hurt a little more with movement or palpating those areas. Patient denies any fevers or chills. Patient denies any abdominal pain patient denies any other symptoms at this time. - Related Data Home Medications Medication Instructions Recorded Confirmed amLODIPine [Norvasc] 2.5 mg PO DAILY 10/21/15 12/09/20 Primidone [Mysoline] 50 mg PO TID 05/26/16 12/09/20 Losartan [Cozaar] 50 mg PO DAILY 03/14/19 12/09/20 fluPHENAZine HCl [fluPHENAZine HCL] 10 mg PO BID 03/14/19 12/09/20 Chlorthalidone 50 mg PO DAILY 12/09/20 12/09/20 Cholecalciferol [Vitamin D3 (25 25 mcg PO DAILY 12/09/20 12/09/20 Mcg = 1000 Iu)] Omeprazole 40 mg PO DAILY 12/09/20 12/09/20 Pravastatin Sodium [Pravachol] 20 mg PO DAILY 12/09/20 12/09/20 Previous Rx's Medication Instructions Recorded Benztropine Mesylate [Cogentin] 1 mg PO BID PRN #60 tab 12/15/20 Divalproex ER [Depakote ER] 750 mg PO BID #180 tab 12/15/20 Insulin Detemir (Levemir) [Levemir] 26 unit SQ HS #5 pen 12/15/20 metFORMIN HCL [metFORMIN HCL ER 1,000 mg PO DAILY #30 tab 12/15/20 Osmotic] traZODone HCL [Desyrel] 100 mg PO HS #30 tab 12/15/20 Ketorolac [Toradol] 10 mg PO Q6HR #15 tab 04/25/21 Allergies Allergy/AdvReac Type Severity Reaction Status Date / Time haloperidol [From Haldol] Allergy Unknown Unknown Verified 04/25/21 12:18 haloperidol lactate Allergy Unknown Unknown Verified 04/25/21 12:18 [From Haldol] risperidone [From Risperdal] AdvReac Unknown Unknown Verified 04/25/21 12:18 Review of Systems ROS Statement: Those systems with pertinent positive or pertinent negative responses have been documented in the HPI. ROS Other: All systems not noted in ROS Statement are negative. Past Medical History Past Medical History: GERD/Reflux, Hearing Disorder / Deafness, Hyperlipidemia, Hypertension, Neurologic Disorder, Sleep Apnea/CPAP/BIPAP Additional Past Medical History / Comment(s): Pt's sister denies pt having a seizure disorder, seizure disorder is in past medical record, idiopathic parkinson's per past medical record, hiatal hernia, colon polyp, diverticular disease, leg edema bilaterally, DEBRA/no device History of Any Multi-Drug Resistant Organisms: None Reported Past Surgical History: No Surgical Hx Reported Additional Past Surgical History / Comment(s): EGD, colonoscopy. Past Anesthesia/Blood Transfusion Reactions: No Reported Reaction Additional Past Anesthesia/Blood Transfusion Reaction / Comment(s): FIRST ANESTHETIC Past Psychological History: Bipolar, Schizophrenia Smoking Status: Never smoker Past Alcohol Use History: None Reported Past Drug Use History: None Reported - Past Family History Mother Family Medical History: Cancer Additional Family Medical History / Comment(s): Mother had breast cancer. Father Family Medical History: CVA/TIA, Hypertension, Myocardial Infarction ([place]) Additional Family Medical History / Comment(s): Father had MIs/cva's. General Exam - General Exam Comments Initial Comments: GENERAL: Patient is well-developed and well-nourished. Patient is nontoxic and well- hydrated and is in mild distress. ENT: Moist mucous membranes. Neck has full range of motion without eliciting any pain. EYES: The sclera were anicteric and conjunctiva were pink and moist. Extraocular movements were intact and pupils were equal round and reactive to light. Eyelids were unremarkable. PULMONARY: Unlabored respirations. Good breath sounds bilaterally. No audible rales rhonchi or wheezing was noted. CARDIOVASCULAR: There is a regular rate and rhythm without any murmurs gallops or rubs. ABDOMEN: Soft and nontender with normal bowel sounds. SKIN: Skin is clear with no lesions or rashes and otherwise unremarkable. NEUROLOGIC: Patient is alert and oriented x3. Cranial nerves II through XII are grossly intact. Motor and sensory are also intact. Normal speech, volume and content. Symmetrical smile. Patient has consistent tremor she states is normal MUSCULOSKELETAL: Normal extremities with adequate strength and full range of motion. Patient has tenderness in the left lateral hip and tenderness in the iliac crest on the left. LYMPHATICS: No significant lymphadenopathy is noted PSYCHIATRIC: Normal psychiatric evaluation. Limitations: no limitations Course Vital Signs 04/25/21 12:14 Temperature 97.4 F L Pulse Rate 79 Respiratory 20 Rate Blood Pressure 134/68 O2 Sat by Pulse 97 Oximetry Medical Decision Making - Medical Decision Making X-ray showed no acute abnormality. Patient states the Toradol didn't help. Patient was up and ambulating prior to discharge. Disposition Clinical Impression: Greater trochanteric bursitis Disposition: HOME SELF-CARE Additional Instructions: Patient can take Tylenol when necessary for pain Prescriptions: Ketorolac [Toradol] 10 mg PO Q6HR #15 tab Is patient prescribed a controlled substance at d/c from ED?: No Referrals: Sangeeta Andino MD [Primary Care Provider] - 1-2 days Time of Disposition: 13:47
--- NOTE | 2021-04-25 13:19 | XR ---
EXAMINATION TYPE: XR Hip LT and AP Pelvis DATE OF EXAM: 04/25/2021 COMPARISON: CT abdomen and pelvis March 13, 2019 HISTORY: Pelvic and left hip pain. TECHNIQUE: A single AP view of the pelvis is obtained. Two views of the left hip are obtained. FINDINGS: There is no acute fracture/dislocation evident in the pelvis. Transitional type vertebra lumbosacral junction redemonstrated. The sacroiliac joints appear symmetric and within normal limits. Scattered bilateral pelvic phleboliths. The pubic symphysis is intact. Mild to moderate axial joint space loss and acetabular spurring in both hips. Two views of left hip show poor frog leg positioning. No acute fracture or dislocation. Overlying so ft tissue is unremarkable. IMPRESSION: As above. No significant change from prior CT.
[2021-04-25] MEDS ORDERED: ACET/COD 300 MG/30 MG STARTER PACK 6 TAB BTL PO STA (13:47)
== END 2021-04-25 14:00 | disposition home or self-care (01) ==
LOC: EC 12:04 → EEVIPCON 12:04 → EC 14:00
DX: M70.62 Trochanteric bursitis, left hip (principal); K21.9 Gastro-esophageal reflux disease without esophagitis; E78.5 Hyperlipidemia, unspecified; I10 Essential (primary) hypertension; F31.9 Bipolar disorder, unspecified; F25.9 Schizoaffective disorder, unspecified; Z79.4 Long term (current) use of insulin; Z79.84 Long term (current) use of oral hypoglycemic drugs; Z86.010 Personal history of colon polyps
CPT/HCPCS: 99283; 96372; 73502; J1885

== ENCOUNTER 2022-07-23 14:53 | Emergency (ER) | payer MEDICARE, OTHER ==
[2022-07-23 15:05] LABS: Glucose,Whole Blood 119 mg/dL (70-110)
[2022-07-23] MEDS ORDERED: MECLIZINE 12.5 MG TAB PO STA (16:44)
--- NOTE | 2022-07-23 16:52 | ED ---
General Adult HPI - General Chief complaint: Weakness Stated complaint: Dizziness Time Seen by Provider: 07/23/22 16:23 Source: patient, RN notes reviewed Mode of arrival: wheelchair Limitations: no limitations - History of Present Illness Initial comments: D7-year-old male with past medical history significant for tremor presents to the emergency department with a chief complaint of generalized weakness. Patient reports generalized weakness that started yesterday. He is also complaining of accompanying symptoms of what he describes as dizziness and "bleeding over to one side. "She denies any trauma or falls. She denies fever, cough, chills, chest pain, palpitations, shortness of breath lightheaded, vision changes, vision loss - Related Data Home Medications Medication Instructions Recorded Confirmed amLODIPine [Norvasc] 2.5 mg PO DAILY 10/21/15 12/09/20 Primidone [Mysoline] 50 mg PO TID 05/26/16 12/09/20 Losartan [Cozaar] 50 mg PO DAILY 03/14/19 12/09/20 fluPHENAZine HCl [fluPHENAZine HCL] 10 mg PO BID 03/14/19 12/09/20 Chlorthalidone 50 mg PO DAILY 12/09/20 12/09/20 Cholecalciferol [Vitamin D3 (25 25 mcg PO DAILY 12/09/20 12/09/20 Mcg = 1000 Iu)] Omeprazole 40 mg PO DAILY 12/09/20 12/09/20 Pravastatin Sodium [Pravachol] 20 mg PO DAILY 12/09/20 12/09/20 Previous Rx's Medication Instructions Recorded Benztropine Mesylate [Cogentin] 1 mg PO BID PRN #60 tab 12/15/20 Divalproex ER [Depakote ER] 750 mg PO BID #180 tab 12/15/20 Insulin Detemir (Levemir) [Levemir] 26 unit SQ HS #5 pen 12/15/20 metFORMIN HCL [metFORMIN HCL ER 1,000 mg PO DAILY #30 tab 12/15/20 Osmotic] traZODone HCL [Desyrel] 100 mg PO HS #30 tab 12/15/20 Ketorolac [Toradol] 10 mg PO Q6HR #15 tab 04/25/21 Allergies Allergy/AdvReac Type Severity Reaction Status Date / Time haloperidol [From Haldol] Allergy Unknown Unknown Verified 07/23/22 15:05 haloperidol lactate Allergy Unknown Unknown Verified 07/23/22 15:05 [From Haldol] risperidone [From Risperdal] AdvReac Unknown Unknown Verified 07/23/22 15:05 Review of Systems ROS Statement: Those systems with pertinent positive or pertinent negative responses have been documented in the HPI. ROS Other: All systems not noted in ROS Statement are negative. Past Medical History Past Medical History: GERD/Reflux, Hearing Disorder / Deafness, Hyperlipidemia, Hypertension, Neurologic Disorder, Sleep Apnea/CPAP/BIPAP Additional Past Medical History / Comment(s): Pt's sister denies pt having a seizure disorder, seizure disorder is in past medical record, idiopathic parkinson's per past medical record, hiatal hernia, colon polyp, diverticular disease, leg edema bilaterally, DEBRA/no device History of Any Multi-Drug Resistant Organisms: None Reported Past Surgical History: No Surgical Hx Reported Additional Past Surgical History / Comment(s): EGD, colonoscopy. Past Anesthesia/Blood Transfusion Reactions: No Reported Reaction Additional Past Anesthesia/Blood Transfusion Reaction / Comment(s): FIRST ANESTHETIC Past Psychological History: Bipolar, Schizophrenia Smoking Status: Never smoker Past Alcohol Use History: None Reported Past Drug Use History: None Reported - Past Family History Mother Family Medical History: Cancer Additional Family Medical History / Comment(s): Mother had breast cancer. Father Family Medical History: CVA/TIA, Hypertension, Myocardial Infarction ([place]) Additional Family Medical History / Comment(s): Father had MIs/cva's. General Exam - General Exam Comments Initial Comments: General: Alert, in no acute distress, physiologic tremor Head: atraumatic normocephalic. Eyes PERRL, EOMI intact, mucous membranes moist Respiratory: Lungs clear to auscultation bilaterally Cardiovascular: Heart rate regular rate and rhythm Abdominal: Soft without guarding or rebound Extremities: Normal inspection with full range of motion and normal capillary refill Neuroogic: alert and oriented 3, CN II-XII intact, able to ambulate with steady gait Skin: warm dry and intact with normal color Limitations: no limitations Course Vital Signs 07/23/22 07/23/22 07/23/22 15:00 18:00 19:40 Temperature 97.5 F L 97.8 F 97.8 F Pulse Rate 67 74 70 Respiratory 18 20 20 Rate Blood Pressure 113/69 115/68 112/58 O2 Sat by Pulse 97 97 97 Oximetry EKG Findings - EKG Comments: EKG Findings:: I interpreted the following: EKG performed at 16:26. Rate 59 bpm and sinus bradycardia. UT interval 189, QRS duration 103, QT/QTc 398/397 Medical Decision Making - Medical Decision Making Was pt. sent in by a medical professional or institution (, [facility], [facility], urgent care, hospital, or snf...) When possible be specific @ -[No] Did you speak to anyone other than the patient for history (EMS, parent, family, police, friend...)? What history was obtained from this source @ -[No] Did you review nursing and triage notes (agree or disagree)? Why? @ -[I reviewed and agree with nursing and triage notes] Were old charts reviewed (outside hosp., previous admission, EMS record, old EKG, old radiological studies, urgent care reports/EKG's, snf records)? Report findings @ -[No old charts were reviewed] Differential Diagnosis (chest pain, altered mental status, abdominal pain women, abdominal pain men, vaginal bleeding, weakness, fever, dyspnea, syncope, headache, dizziness, GI bleed, back pain, seizure, CVA, palpatations, mental health, musculoskeletal)? @ -[not applicable] EKG interpreted by me (3pts min.). @ -[As above] X-rays interpreted by me (1pt min.). @ -[None done] CT interpreted by me (1pt min.). @ -[None done] U/S interpreted by me (1pt. min.). @ -[None done] What testing was considered but not performed or refused? (CT, X-rays, U/S, labs)? Why? @ -[None] What meds were considered but not given or refused? Why? @ -[None] Did you discuss the management of the patient with other professionals (professionals i.e. [facility] Salcedo, [facility], lab, RT, psych nurse, social media community manager, automobile dealer, teacher, jailer/training officer, immigration case worker)? Give summary @ -[No] Was smoking cessation discussed for >3mins.? @ -[No] Was critical care preformed (if so, how long)? @ -[No] Were there social determinants of health that impacted care today? How? (Homelessness, low income, unemployed, alcoholism, drug addiction, transportation, low edu. Level, literacy, decrease access to med. care, long-term, rehab)? @ -[No] Was there de-escalation of care discussed even if they declined (Discuss DNR or withdrawal of care, Hospice)? DNR status @ -[No] What co-morbidities impacted this encounter? (DM, HTN, Smoking, COPD, CAD, Cancer, CVA, ARF, Chemo, Hep., AIDS, mental health diagnosis, sleep apnea, morbid obesity)? @ -[None] Was patient admitted / discharged? Hospital course, mention meds given and route, prescriptions, significant lab abnormalities, going to OR and other pertinent info. @ -Discharged. 57 year old -old male who presents the emergency department with dizziness. Patient had a thorough history and physical exam performed while in the ED. Physical exam is essentially unremarkable. Heart rate regular rate and rhythm, lungs clear to auscultation bilaterally, abdomen soft nontender. Patient had a conference of workup performed while in the ED which included lab work and imaging which were all negative. I discussed the results in detail with the patient's parents verbalized understanding and all questions were addressed. Return precautions were did stress at length with recommended close follow-up with PCP. Patient discharged in stable condition. Case discussed with JJ Robin who agrees with plan of care Undiagnosed new problem with uncertain prognosis? @ -[No] Drug Therapy requiring intensive monitoring for toxicity (Heparin, Nitro, Insulin, Cardizem)? @ -[No] Were any procedures done? @ -[No] Diagnosis/symptom? @ -Dizziness Acute, or Chronic, or Acute on Chronic? @ -Acute Uncomplicated (without systemic symptoms) or Complicated (systemic symptoms)? @ -Uncomplicated Side effects of treatment? @ -[No] Exacerbation, Progression, or Severe Exacerbation? @ -[No] Poses a threat to life or bodily function? How? (Chest pain, [place], [place], pneumonia, PE, COPD, DKA, ARF, appy, cholecystitis, CVA, Diverticulitis, Homicidal, Suicidal, threat to staff... and all critical care pts) @ -Low likelihood - Lab Data Result diagrams: 07/23/22 17:14 07/23/22 17:14 Lab Results 07/23/22 07/23/22 07/23/22 Range/Units 15:03 17:14 17:14 WBC 6.6 (3.8-10.6) k/uL RBC 4.80 (4.30-5.90) m/uL Hgb 14.3 (13.0-17.5) gm/dL Hct 43.4 (39.0-53.0) % MCV 90.4 (80.0-100.0) fL MCH 29.9 (25.0-35.0) pg MCHC 33.0 (31.0-37.0) g/dL RDW 13.5 (11.5-15.5) % Plt Count 178 (150-450) k/uL MPV 7.9 Neutrophils % 58 % Lymphocytes % 30 % Monocytes % 8 % Eosinophils % 3 % Basophils % 0 % Neutrophils # 3.8 (1.3-7.7) k/uL Lymphocytes # 2.0 (1.0-4.8) k/uL Monocytes # 0.6 (0-1.0) k/uL Eosinophils # 0.2 (0-0.7) k/uL Basophils # 0.0 (0-0.2) k/uL PT 11.7 (9.0-12.0) sec INR 1.1 (<1.2) APTT 24.8 (22.0-30.0) sec Sodium (137-145) mmol/L Potassium (3.5-5.1) mmol/L Chloride (98-107) mmol/L Carbon Dioxide (22-30) mmol/L Anion Gap mmol/L BUN (9-20) mg/dL Creatinine (0.66-1.25) mg/dL Est GFR (CKD-EPI)AfAm (>60 ml/min/1.73 sqM) Est GFR (CKD-EPI)NonAf (>60 ml/min/1.73 sqM) Glucose (74-99) mg/dL POC Glucose (mg/dL) 119 H (70-110) mg/dL POC Glu Transcript Clerk ID [email or web address] Plasma Lactic Acid Hamzah (0.7-2.0) mmol/L Calcium (8.4-10.2) mg/dL Total Bilirubin (0.2-1.3) mg/dL AST (17-59) U/L ALT (4-49) U/L Alkaline Phosphatase (38-126) U/L Troponin I (0.000-0.034) ng/mL NT-Pro-B Natriuret Pep pg/mL Total Protein (6.3-8.2) g/dL Albumin (3.5-5.0) g/dL TSH (0.465-4.680) mIU/L Urine Color Urine Appearance (Clear) Urine pH (5.0-8.0) Ur Specific [place] (1.001-1.035) Urine Protein (Negative) Urine Glucose (UA) (Negative) Urine Ketones (Negative) Urine Blood (Negative) Urine Nitrite (Negative) Urine Bilirubin (Negative) Urine Urobilinogen (<2.0) mg/dL Ur Leukocyte Esterase (Negative) Influenza Type A (PCR) (Not Detectd) Influenza Type B (PCR) (Not Detectd) RSV (PCR) (Not Detectd) SARS-CoV-2 (PCR) (Not Detectd) 07/23/22 07/23/22 07/23/22 Range/Units 17:14 17:14 17:14 WBC (3.8-10.6) k/uL RBC (4.30-5.90) m/uL Hgb (13.0-17.5) gm/dL Hct (39.0-53.0) % MCV (80.0-100.0) fL MCH (25.0-35.0) pg MCHC (31.0-37.0) g/dL RDW (11.5-15.5) % Plt Count (150-450) k/uL MPV Neutrophils % % Lymphocytes % % Monocytes % % Eosinophils % % Basophils % % Neutrophils # (1.3-7.7) k/uL Lymphocytes # (1.0-4.8) k/uL Monocytes # (0-1.0) k/uL Eosinophils # (0-0.7) k/uL Basophils # (0-0.2) k/uL PT (9.0-12.0) sec INR (<1.2) APTT (22.0-30.0) sec Sodium 136 L (137-145) mmol/L Potassium 3.5 (3.5-5.1) mmol/L Chloride 99 (98-107) mmol/L Carbon Dioxide 30 (22-30) mmol/L Anion Gap 7 mmol/L BUN 21 H (9-20) mg/dL Creatinine 0.74 (0.66-1.25) mg/dL Est GFR (CKD-EPI)AfAm >90 (>60 ml/min/1.73 sqM) Est GFR (CKD-EPI)NonAf >90 (>60 ml/min/1.73 sqM) Glucose 96 (74-99) mg/dL POC Glucose (mg/dL) (70-110) mg/dL POC Glu Transcript Clerk ID Plasma Lactic Acid Hamzah 1.1 (0.7-2.0) mmol/L Calcium 9.5 (8.4-10.2) mg/dL Total Bilirubin 0.5 (0.2-1.3) mg/dL AST 24 (17-59) U/L ALT 22 (4-49) U/L Alkaline Phosphatase 45 (38-126) U/L Troponin I (0.000-0.034) ng/mL NT-Pro-B Natriuret Pep pg/mL Total Protein 7.1 (6.3-8.2) g/dL Albumin 4.3 (3.5-5.0) g/dL TSH 0.885 (0.465-4.680) mIU/L Urine Color Urine Appearance (Clear) Urine pH (5.0-8.0) Ur Specific [place] (1.001-1.035) Urine Protein (Negative) Urine Glucose (UA) (Negative) Urine Ketones (Negative) Urine Blood (Negative) Urine Nitrite (Negative) Urine Bilirubin (Negative) Urine Urobilinogen (<2.0) mg/dL Ur Leukocyte Esterase (Negative) Influenza Type A (PCR) Not Detected (Not Detectd) Influenza Type B (PCR) Not Detected (Not Detectd) RSV (PCR) Not Detected (Not Detectd) SARS-CoV-2 (PCR) Not Detected (Not Detectd) 07/23/22 07/23/22 07/23/22 Range/Units 17:14 17:14 18:31 WBC (3.8-10.6) k/uL RBC (4.30-5.90) m/uL Hgb (13.0-17.5) gm/dL Hct (39.0-53.0) % MCV (80.0-100.0) fL MCH (25.0-35.0) pg MCHC (31.0-37.0) g/dL RDW (11.5-15.5) % Plt Count (150-450) k/uL MPV Neutrophils % % Lymphocytes % % Monocytes % % Eosinophils % % Basophils % % Neutrophils # (1.3-7.7) k/uL Lymphocytes # (1.0-4.8) k/uL Monocytes # (0-1.0) k/uL Eosinophils # (0-0.7) k/uL Basophils # (0-0.2) k/uL PT (9.0-12.0) sec INR (<1.2) APTT (22.0-30.0) sec Sodium (137-145) mmol/L Potassium (3.5-5.1) mmol/L Chloride (98-107) mmol/L Carbon Dioxide (22-30) mmol/L Anion Gap mmol/L BUN (9-20) mg/dL Creatinine (0.66-1.25) mg/dL Est GFR (CKD-EPI)AfAm (>60 ml/min/1.73 sqM) Est GFR (CKD-EPI)NonAf (>60 ml/min/1.73 sqM) Glucose (74-99) mg/dL POC Glucose (mg/dL) (70-110) mg/dL POC Glu Transcript Clerk ID Plasma Lactic Acid Hamzah (0.7-2.0) mmol/L Calcium (8.4-10.2) mg/dL Total Bilirubin (0.2-1.3) mg/dL AST (17-59) U/L ALT (4-49) U/L Alkaline Phosphatase (38-126) U/L Troponin I <0.012 (0.000-0.034) ng/mL NT-Pro-B Natriuret Pep 90 pg/mL Total Protein (6.3-8.2) g/dL Albumin (3.5-5.0) g/dL TSH (0.465-4.680) mIU/L Urine Color Yellow Urine Appearance Clear (Clear) Urine pH 7.5 (5.0-8.0) Ur Specific [place] 1.019 (1.001-1.035) Urine Protein Negative (Negative) Urine Glucose (UA) Negative (Negative) Urine Ketones Negative (Negative) Urine Blood Negative (Negative) Urine Nitrite Negative (Negative) Urine Bilirubin Negative (Negative) Urine Urobilinogen <2.0 (<2.0) mg/dL Ur Leukocyte Esterase Negative (Negative) Influenza Type A (PCR) (Not Detectd) Influenza Type B (PCR) (Not Detectd) RSV (PCR) (Not Detectd) SARS-CoV-2 (PCR) (Not Detectd) Disposition Clinical Impression: Dizziness Disposition: HOME SELF-CARE Condition: Stable Instructions (If sedation given, give patient instructions): Lightheadedness (ED), Dizziness (ED) Additional Instructions: Return to the nearest emergency department if symptoms worsen or persist Is patient prescribed a controlled substance at d/c from ED?: No Referrals: None,Stated [REFERRING] - 1-2 days Time of Disposition: 19:23
[2022-07-23 17:33] LABS: Basophils % (A) 0 %; Eosinophils # (A) 0.2 k/uL (0-0.7); Eosinophils % (A) 3 %; HCT 43.4 % (39.0-53.0); HGB 14.3 gm/dL (13.0-17.5); Lymphocytes % (A) 30 %; MCH 29.9 pg (25.0-35.0); MCV 90.4 fL (80.0-100.0); Mean Platelet Volume 7.9; Monocytes # (A) 0.6 k/uL (0-1.0); Monocytes % (A) 8 %; Neutrophils # (A) 3.8 k/uL (1.3-7.7); Neutrophils % (A) 58 %; Platelet Count 178 k/uL (150-450); RDW 13.5 % (11.5-15.5); WBC 6.6 k/uL (3.8-10.6)
[2022-07-23 17:44] LABS: ALT 22 U/L (4-49); AST 24 U/L (17-59); African American GFR (CKD) >90 (>60 ml/min/1.73 sqM); Albumin 4.3 g/dL (3.5-5.0); Alkaline Phosphatase 45 U/L (38-126); Anion Gap 7 mmol/L; Blood Urea Nitrogen 21 mg/dL (9-20); Calcium 9.5 mg/dL (8.4-10.2); Carbon Dioxide 30 mmol/L (22-30); Chloride 99 mmol/L (98-107); Glucose 96 mg/dL (74-99); INR 1.1 (<1.2); Non-African American GFR(CKD) >90 (>60 ml/min/1.73 sqM); Partial Thromboplastin Time 24.8 sec (22.0-30.0); Potassium 3.5 mmol/L (3.5-5.1); Prothrombin Time 11.7 sec (9.0-12.0); Sodium 136 mmol/L (137-145); Total Bilirubin 0.5 mg/dL (0.2-1.3); Total Protein 7.1 g/dL (6.3-8.2)
--- NOTE | 2022-07-23 17:44 | CT ---
EXAMINATION TYPE: CT brain wo con CT DLP: 1161.1 mGycm, Automated exposure control for dose reduction was used. DATE OF EXAM: 07/23/2022 5:31 PM COMPARISON: 08/27/2009. CLINICAL INDICATION:Male, 57 years old with history of dizziness, dizziness TECHNIQUE: Brain: Axial CT images of the brain were obtained with coronal and sagittal reformats created and rev iewed. Contrast used: None. Oral contrast used: None. FINDINGS: Brain: Extra-axial spaces: No abnormal extra-axial fluid collections. Ventricular system: Within normal limits Cerebral parenchyma: No acute intraparenchymal hemorrhage or mass effect. The winter-white junction is well differentiated. Cerebellum: Unremarkable. Mass effect: No evidence of midline shift. Intracranial vasculature: unremarkable Soft tissues: Normal. Calvarium/osseous structures: No depressed skull fracture. Paranasal sinuses and mastoid air cells: Mild scattered paranasal sinus disease. Visualized orbits: Orbital contents are intact. IMPRESSION: No acute intracranial process.
--- NOTE | 2022-07-23 17:45 | XR ---
EXAMINATION TYPE: XR chest 2V DATE OF EXAM: 07/23/2022 5:28 PM COMPARISON: Chest radiographs from 321 TECHNIQUE: XR chest 2V Frontal and lateral views of the chest. CLINICAL INDICATION:Male, 57 years old with history of dizziness; FINDINGS: Lungs/Pleura: There is no evidence of pleural effusion, focal consolidation, or pneumothorax. Pulmonary vascularity: Unremarkable. Heart/mediastinum: Cardiomediastinal silhouette is unremarkable. Musculoskeletal: No acute osseous pathology. IMPRESSION: 1. No acute cardiopulmonary disease process. 2. COPD changes.
[2022-07-23 18:40] VITALS: RESP 20; TEMP 97.8
[2022-07-23 18:57] LABS: Appearance,Urine Clear (Clear); Bilirubin,Urine Negative (Negative); Blood,Urine Negative (Negative); Color,Urine Yellow; Glucose,Urine (UA) Negative (Negative); Ketones,Urine Negative (Negative); Leukocyte Esterase,Urine Negative (Negative); Nitrite,Urine Negative (Negative); PH, Urine 7.5 (5.0-8.0); Protein,Urine Negative (Negative); Specific Gravity,Urine 1.019 (1.001-1.035); Urobilinogen,Urine <2.0 mg/dL (<2.0)
[2022-07-23 19:54] VITALS: BP 112/58; PULSE 70
== END 2022-07-23 19:40 | disposition home or self-care (01) ==
LOC: EC 14:53
DX: R42 Dizziness and giddiness (principal); J44.9 Chronic obstructive pulmonary disease, unspecified; K21.9 Gastro-esophageal reflux disease without esophagitis; E78.5 Hyperlipidemia, unspecified; I10 Essential (primary) hypertension; G47.30 Sleep apnea, unspecified; F31.9 Bipolar disorder, unspecified; Z79.899 Other long term (current) drug therapy; Z88.8 Allergy status to other drugs, medicaments and biological substances; Z88.6 Allergy status to analgesic agent; Z20.822 Contact with and (suspected) exposure to COVID-19
CPT/HCPCS: 36415; 70450; 71046; 80053; 81003; 83605; 83880; 84443; 84484; 85025; 85610; 85730; 87636; 93005; 99285

== ENCOUNTER 2023-03-09 13:37 | Observation (INO) | payer MEDICARE, OTHER ==
[2023-03-09] MEDS ORDERED: ASPIRIN 81 MG PO STA (14:02)
--- NOTE | 2023-03-09 14:05 | ED ---
General Adult HPI - General Chief complaint: Chest Pain Stated complaint: Chest pressure Time Seen by Provider: 03/09/23 13:48 Source: patient, family Mode of arrival: ambulatory Limitations: no limitations - History of Present Illness Initial comments: Dictation was produced using [employer] dictation software. please excuse any grammatical, word or spelling errors. Chief Complaint: 57-year-old male with past medical history of diabetes and mental delay presents to the ER for chest pressure History of Present Illness: Patient is a 57-year-old male he has a past medical history of mental delay, dyslipidemia and hypertension. Over the last 1 day he has been suffering from pressure. States that his pressure is substernal nonradiating. No associated diaphoresis. States that it stays to his substernal chest feels like somebody is pressing on it. He denies any history of cardiac disease. States that however heart attacks do run in his family. He is accompanied by his legal guardian who states that is very atypical for patient be complaining of any medical issues. Patient has any symptoms at this time. He does report that his symptoms seem to be more noticeable when he tries to sleep and his symptoms wake him up. The ROS documented in this emergency department record has been reviewed and confirmed by me. Those systems with pertinent positive or negative responses have been documented in the HPI. All other systems are other negative and/or noncontributory. - Related Data Home Medications Medication Instructions Recorded Confirmed amLODIPine [Norvasc] 2.5 mg PO DAILY 10/21/15 12/09/20 Primidone [Mysoline] 50 mg PO TID 05/26/16 12/09/20 Losartan [Cozaar] 50 mg PO DAILY 03/14/19 12/09/20 fluPHENAZine HCl [fluPHENAZine HCL] 10 mg PO BID 03/14/19 12/09/20 Chlorthalidone 50 mg PO DAILY 12/09/20 12/09/20 Cholecalciferol [Vitamin D3 (25 25 mcg PO DAILY 12/09/20 12/09/20 Mcg = 1000 Iu)] Omeprazole 40 mg PO DAILY 12/09/20 12/09/20 Pravastatin Sodium [Pravachol] 20 mg PO DAILY 12/09/20 12/09/20 Previous Rx's Medication Instructions Recorded Benztropine Mesylate [Cogentin] 1 mg PO BID PRN #60 tab 12/15/20 Divalproex ER [Depakote ER] 750 mg PO BID #180 tab 12/15/20 Insulin Detemir (Levemir) [Levemir] 26 unit SQ HS #5 pen 12/15/20 metFORMIN HCL [metFORMIN HCL ER 1,000 mg PO DAILY #30 tab 12/15/20 Osmotic] traZODone HCL [Desyrel] 100 mg PO HS #30 tab 12/15/20 Ketorolac [Toradol] 10 mg PO Q6HR #15 tab 04/25/21 Allergies Allergy/AdvReac Type Severity Reaction Status Date / Time haloperidol [From Haldol] Allergy Unknown Unknown Verified 03/09/23 15:39 haloperidol lactate Allergy Unknown Unknown Verified 03/09/23 15:39 [From Haldol] risperidone [From Risperdal] AdvReac Unknown Unknown Verified 03/09/23 15:39 Review of Systems ROS Statement: Those systems with pertinent positive or pertinent negative responses have been documented in the HPI. ROS Other: All systems not noted in ROS Statement are negative. Past Medical History Past Medical History: GERD/Reflux, Hearing Disorder / Deafness, Hyperlipidemia, Hypertension, Neurologic Disorder, Sleep Apnea/CPAP/BIPAP Additional Past Medical History / Comment(s): Pt's sister denies pt having a seizure disorder, seizure disorder is in past medical record, idiopathic par kinson's per past medical record, hiatal hernia, colon polyp, diverticular disease, leg edema bilaterally, DEBRA/no device History of Any Multi-Drug Resistant Organisms: None Reported Past Surgical History: No Surgical Hx Reported Additional Past Surgical History / Comment(s): EGD, colonoscopy. Past Anesthesia/Blood Transfusion Reactions: No Reported Reaction Additional Past Anesthesia/Blood Transfusion Reaction / Comment(s): FIRST ANESTHETIC Past Psychological History: Bipolar, Schizophrenia Smoking Status: Never smoker Past Alcohol Use History: None Reported Past Drug Use History: None Reported - Past Family History Mother Family Medical History: Cancer Additional Family Medical History / Comment(s): Mother had breast cancer. Father Family Medical History: CVA/TIA, Hypertension, Myocardial Infarction ([place]) Additional Family Medical History / Comment(s): Father had MIs/cva's. General Exam - General Exam Comments Initial Comments: PHYSICAL EXAM: General Impression: Alert and oriented x3, not in acute distress HEENT: Normocephalic atraumatic, extra-ocular movements intact, pupils equal and reactive to light bilaterally, mucous membranes moist. Cardiovascular: Heart regular rate and rhythm Chest: Able to complete full sentences, no retractions, no tachypnea Abdomen: abdomen soft, non-tender, non-distended, no organomegaly Musculoskeletal: Pulses present and equal in all extremities, no peripheral edema Motor: no focal deficits noted Neurological: CN II-XII grossly intact, no focal motor or sensory deficits noted Skin: Intact with no visualized rashes Psych: Normal affect and mood Limitations: no limitations Course Vital Signs 03/09/23 03/09/23 13:41 14:39 Temperature 98.1 F Pulse Rate 97 Pulse Rate [ 75 Radial] Respiratory 20 Rate Blood Pressure 130/82 O2 Sat by Pulse 93 L Oximetry EKG Findings - EKG Comments: EKG Findings:: My EKG interpretation: Ventricular rate 84, sinus rhythm,. 183, QRS 82, QTc 393. No ME prolongation, no QTC prolongation, no ST or T-wave changes noted. Overall, this EKG is unremarkable Medical Decision Making - Medical Decision Making Was pt. sent in by a medical professional or institution (, PA, MECHANICAL UNIT REPAIRER, urgent care, hospital, or jail...) When possible be specific @ -No Did you speak to anyone other than the patient for history (EMS, parent, family, police, friend...)? What history was obtained from this source @ -No Did you review nursing and triage notes (agree or disagree)? Why? @ -I reviewed and agree with nursing and triage notes Were old charts reviewed (outside hosp., previous admission, EMS record, old EKG, old radiological studies, urgent care reports/EKG's, jail records)? Report findings @ -No old charts were reviewed Differential Diagnosis (chest pain, altered mental status, abdominal pain women, abdominal pain men, vaginal bleeding, musculoskeletal, weakness, fever, dyspnea, syncope, headache, dizziness, GI bleed, back pain, seizure, CVA, palpatations, mental health)? @ -Differential Chest Pain: Stable Angina, Unstable Angina, STEMI, NSTEMI Aortic Dissection, Pneumothorax, Musculoskeletal, Esophageal Spasm GERD, Cholecystitis, Pancreatitis, Zoster, this is not meant to be an all-inclusive list. EKG interpreted by me (3pts min.). @ -See above X-rays interpreted by me (1pt min.). @ -Pending CT interpreted by me (1pt min.). @ -None done U/S interpreted by me (1pt. min.). @ -None done What testing was considered but not performed or refused? (CT, X-rays, U/S, labs)? Why? @ -None What meds were considered but not given or refused? Why? @ -None Did you discuss the management of the patient with other professionals (professionals i.e. , PA, MECHANICAL UNIT REPAIRER, lab, RT, psych nurse, social research assistant, showroom sales assistant, teacher, quarantine officer, case work aide)? Give summary @ -No Was smoking cessation discussed for >3mins.? @ -No Was critical care preformed (if so, how long)? @ -No Were there social determinants of health that impacted care today? How? (Homelessness, low income, unemployed, alcoholism, drug addiction, transportation, low edu. Level, literacy, decrease access to med. care, skilled nursing, rehab)? @ -No Was there de-escalation of care discussed even if they declined (Discuss DNR or withdrawal of care, Hospice)? DNR status @ -No What co-morbidities impacted this encounter? (DM, HTN, Smoking, COPD, CAD, Ca ncer, CVA, ARF, Chemo, Hep., AIDS, mental health diagnosis, sleep apnea, morbid obesity)? @ -None Was patient admitted / discharged? Hospital course, mention meds given and route, prescriptions, significant lab abnormalities, going to OR and other pertinent info. @ -57-year-old male presents emergency department with atypical chest pain typical features. He does have some comorbidities. Vital signs stable. EKG is unremarkable. Laboratory evaluation obtained. Labs unremarkable. Troponin is negative. Patient reevaluated at the bedside at 3:50 PM stable medical condition. Patient agreeable for observation admission for cardiac monitoring, cardiology consultation and serial troponins. Undiagnosed new problem with uncertain prognosis? @ -No Drug Therapy requiring intensive monitoring for toxicity (Heparin, Nitro, Insulin, Cardizem)? @ -No Were any procedures done? @ -No Diagnosis/symptom? Acute, or Chronic, or Acute on Chronic? Uncomplicated (without systemic symptoms) or Complicated (systemic symptoms)? @ -Chest pain Side effects of treatment? @ -No Exacerbation, Progression, or Severe Exacerbation? @ -No Poses a threat to life or bodily function? How? (Chest pain, [place], [place], pneumonia, PE, COPD, DKA, ARF, appy, cholecystitis, CVA, Diverticulitis, Homicidal, Suicidal, threat to staff... and all critical care pts) @ -yes - Lab Data Result diagrams: 03/09/23 14:38 03/09/23 14:38 Lab Results 03/09/23 03/09/23 03/09/23 Range/Units 14:38 14:38 14:38 WBC 6.8 (3.8-10.6) k/uL RBC 4.90 (4.30-5.90) m/uL Hgb 15.0 (13.0-17.5) gm/dL Hct 44.6 (39.0-53.0) % MCV 91.1 (80.0-100.0) fL MCH 30.7 (25.0-35.0) pg MCHC 33.7 (31.0-37.0) g/dL RDW 13.1 (11.5-15.5) % Plt Count 202 (150-450) k/uL MPV 7.7 Neutrophils % 60 % Lymphocytes % 31 % Monocytes % 7 % Eosinophils % 1 % Basophils % 1 % Neutrophils # 4.1 (1.3-7.7) k/uL Lymphocytes # 2.1 (1.0-4.8) k/uL Monocytes # 0.5 (0-1.0) k/uL Eosinophils # 0.1 (0-0.7) k/uL Basophils # 0.0 (0-0.2) k/uL PT 11.5 (10.0-12.5) sec INR 1.1 (<1.2) APTT 24.7 (22.0-30.0) sec Sodium 138 (137-145) mmol/L Potassium 3.6 (3.5-5.1) mmol/L Chloride 100 (98-107) mmol/L Carbon Dioxide 27 (22-30) mmol/L Anion Gap 11 mmol/L BUN 18 (9-20) mg/dL Creatinine 0.74 (0.66-1.25) mg/dL Est GFR (CKD-EPI)AfAm >90 (>60 ml/min/1.73 sqM) Est GFR (CKD-EPI)NonAf >90 (>60 ml/min/1.73 sqM) Glucose 109 H (74-99) mg/dL Calcium 9.8 (8.4-10.2) mg/dL Magnesium 1.3 L (1.6-2.3) mg/dL Total Bilirubin 0.6 (0.2-1.3) mg/dL AST 31 (17-59) U/L ALT 26 (4-49) U/L Alkaline Phosphatase 62 (38-126) U/L Troponin I (0.000-0.034) ng/mL NT-Pro-B Natriuret Pep 228 pg/mL Total Protein 8.0 (6.3-8.2) g/dL Albumin 4.7 (3.5-5.0) g/dL 03/09/23 Range/Units 14:38 WBC (3.8-10.6) k/uL RBC (4.30-5.90) m/uL Hgb (13.0-17.5) gm/dL Hct (39.0-53.0) % MCV (80.0-100.0) fL MCH (25.0-35.0) pg MCHC (31.0-37.0) g/dL RDW (11.5-15.5) % Plt Count (150-450) k/uL MPV Neutrophils % % Lymphocytes % % Monocytes % % Eosinophils % % Basophils % % Neutrophils # (1.3-7.7) k/uL Lymphocytes # (1.0-4.8) k/uL Monocytes # (0-1.0) k/uL Eosinophils # (0-0.7) k/uL Basophils # (0-0.2) k/uL PT (10.0-12.5) sec INR (<1.2) APTT (22.0-30.0) sec Sodium (137-145) mmol/L Potassium (3.5-5.1) mmol/L Chloride (98-107) mmol/L Carbon Dioxide (22-30) mmol/L Anion Gap mmol/L BUN (9-20) mg/dL Creatinine (0.66-1.25) mg/dL Est GFR (CKD-EPI)AfAm (>60 ml/min/1.73 sqM) Est GFR (CKD-EPI)NonAf (>60 ml/min/1.73 sqM) Glucose (74-99) mg/dL Calcium (8.4-10.2) mg/dL Magnesium (1.6-2.3) mg/dL Total Bilirubin (0.2-1.3) mg/dL AST (17-59) U/L ALT (4-49) U/L Alkaline Phosphatase (38-126) U/L Troponin I <0.012 (0.000-0.034) ng/mL NT-Pro-B Natriuret Pep pg/mL Total Protein (6.3-8.2) g/dL Albumin (3.5-5.0) g/dL Disposition Clinical Impression: Chest pain Disposition: ADMITTED IP TO THIS [facility] Condition: Fair Referrals: Nonstaff,Physician [REFERRING] - 1-2 days Decision Time: 15:48
[2023-03-09 15:07] LABS: INR 1.1 (<1.2); Partial Thromboplastin Time 24.7 sec (22.0-30.0); Prothrombin Time 11.5 sec (10.0-12.5)
[2023-03-09 15:09] LABS: Basophils % (A) 1 %; Eosinophils # (A) 0.1 k/uL (0-0.7); Eosinophils % (A) 1 %; HCT 44.6 % (39.0-53.0); Lymphocytes # (A) 2.1 k/uL (1.0-4.8); Lymphocytes % (A) 31 %; MCH 30.7 pg (25.0-35.0); MCHC 33.7 g/dL (31.0-37.0); MCV 91.1 fL (80.0-100.0); Mean Platelet Volume 7.7; Monocytes # (A) 0.5 k/uL (0-1.0); Monocytes % (A) 7 %; Neutrophils # (A) 4.1 k/uL (1.3-7.7); Neutrophils % (A) 60 %; Platelet Count 202 k/uL (150-450); RDW 13.1 % (11.5-15.5); WBC 6.8 k/uL (3.8-10.6)
[2023-03-09 15:28] LABS: ALT 26 U/L (4-49); AST 31 U/L (17-59); African American GFR (CKD) >90 (>60 ml/min/1.73 sqM); Albumin 4.7 g/dL (3.5-5.0); Alkaline Phosphatase 62 U/L (38-126); Anion Gap 11 mmol/L; Blood Urea Nitrogen 18 mg/dL (9-20); Calcium 9.8 mg/dL (8.4-10.2); Carbon Dioxide 27 mmol/L (22-30); Chloride 100 mmol/L (98-107); Glucose 109 mg/dL (74-99); Magnesium 1.3 mg/dL (1.6-2.3); Non-African American GFR(CKD) >90 (>60 ml/min/1.73 sqM); Potassium 3.6 mmol/L (3.5-5.1); Sodium 138 mmol/L (137-145); Total Bilirubin 0.6 mg/dL (0.2-1.3)
[2023-03-09 15:35] LABS: NT-Pro-B-Type Natriuretic Pept 228 pg/mL
--- NOTE | 2023-03-09 15:36 | XR ---
EXAMINATION TYPE: XR chest 2V DATE OF EXAM: 03/09/2023 3:13 PM CLINICAL INDICATION:Male, 57 years old with history of Chest Pain; [facility] COMPARISON: Chest radiographs from 07/23/2022 TECHNIQUE: XR chest 2V Frontal and lateral views of the chest. FINDINGS: Lungs/Pleura: There is no evidence of pleural effusion, focal consolidation, or pneumothorax. Pulmonary vascularity: Unremarkable. Heart/mediastinum: Cardiomediastinal silhouette is prominent in size. Musculoskeletal: No acute osseous pathology. Other findings: None IMPRESSION: No acute cardiopulmonary disease/process.
[2023-03-09] MEDS ORDERED: NITROGLYCERIN SL TABS 0.4 MG TAB SUBLINGUAL PRN (15:45)
[2023-03-09] MEDS: MAGNESIUM SULFATE-D5W PMX 1 GM in DEXTROSE/WATER 1 100ML.BAG IVPB SCH ×4 (16:29→22:16)
--- NOTE | 2023-03-09 17:05 | P.HPIM ---
History of Present Illness H&P Date: 03/09/23 57-year-old male with past medical history of diabetes mellitus, Schizophrenia, hypertension, GERD, Dyslipidemia presents to the ED. Patient presents to the ED for chest pain that has been ongoing for the past 1.5 days. Chest pain is right sided, intermittent, pressure like in nature, non radiating. He finds it difficult to take a deep breath when he gets the chest pain. Not related to movement, meals or exertion. Reports strong family history of CAD and CVA in his father, unsure of age. Non smoker, no EtOH. In the ED, patient underwent extensive evaluation: Vital signs stable. CBC unremarkable. CMP glucose 109. Mag 1.3. Troponin < 0.012. BNP 228. Brain CT no acute process. 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 EKG sinus rhythm. Patient is admitted for further workup. General: Non toxic, no distress, appears at stated age Derm: Warm, dry Head: Atraumatic, normocephalic, symmetric Eyes: EOMI, no lid lag, anicteric sclera Mouth: No lip lesion, mucus membranes moist Cardiovascular: S1S2 reg, no murmur Lungs: CTA bilateral, no rhonchi, no rales, no accessory muscle use Abdominal: Soft, nontender to palpation, no guarding, no appreciable organomegaly Ext: No gross muscle atrophy, no edema, no contractures Neuro: no focal neuro deficits, resting tremor bilateral UE Psych: Alert and oriented Based on my assessment of this patient, this patient meets a high complexity level of care. Patient has an acute diagnosis of altered mentation that poses a threat to life or bodily function. Chest pain: Atypical. Obtain GB US. ASA 81 mg PO QD. Telemetry monitoring. Trend Trop/EKG. Obtain Echo. Cardiology consult. HypoMag Mag sulfate ordered. CODE STATUS: FULL CODE. DVT Prophylaxis: Lovenox. GI Prophylaxis: Protonix. Designated medical POA if patient is not able to make medical decisions for themselves: Guardian I have reviewed the following center consultant notes: I have reviewed the results of the following tests: As above. I have ordered the following tests: As above. I have discussed the care of this patient with the following independent historian: I have independently interpreted the following test below: EKG. I have discussed the management of this patient with the following physician: Past Medical History Past Medical History: GERD/Reflux, Hearing Disorder / Deafness, Hyperlipidemia, Hypertension, Neurologic Disorder, Sleep Apnea/CPAP/BIPAP Additional Past Medical History / Comment(s): Pt's sister denies pt having a seizure disorder, seizure disorder is in past medical record, idiopathic parkinson's per past medical record, hiatal hernia, colon polyp, diverticular disease, leg edema bilaterally, DEBRA/no device History of Any Multi-Drug Resistant Organisms: None Reported Past Surgical History: No Surgical Hx Reported Additional Past Surgical History / Comment(s): EGD, colonoscopy. Past Anesthesia/Blood Transfusion Reactions: No Reported Reaction Additional Past Anesthesia/Blood Transfusion Reaction / Comment(s): FIRST ANESTHETIC Past Psychological History: Bipolar, Schizophrenia Smoking Status: Never smoker Past Alcohol Use History: None Reported Past Drug Use History: None Reported - Past Family History Mother Family Medical History: Cancer Additional Family Medical History / Comment(s): Mother had breast cancer. Father Family Medical History: CVA/TIA, Hypertension, Myocardial Infarction ([place]) Additional Family Medical History / Comment(s): Father had MIs/cva's. Medications and Allergies Home Medications Medication Instructions Recorded Confirmed Type Primidone [Mysoline] 50 mg PO TID 05/26/16 03/09/23 History Losartan [Cozaar] 50 mg PO DAILY 03/14/19 03/09/23 History fluPHENAZine HCl [fluPHENAZine HCL] 10 mg PO BID 03/14/19 03/09/23 History Chlorthalidone 50 mg PO DAILY 12/09/20 03/09/23 History Cholecalciferol [Vitamin D3 (25 25 mcg PO DAILY 12/09/20 03/09/23 History Mcg = 1000 Iu)] Omeprazole 40 mg PO DAILY 12/09/20 03/09/23 History Divalproex ER [Depakote ER] 750 mg PO BID #180 tab 12/15/20 03/09/23 Rx traZODone HCL [Desyrel] 100 mg PO HS #30 tab 12/15/20 03/09/23 Rx Benztropine Mesylate [Cogentin] 1 mg PO BID 03/09/23 03/09/23 History Pravastatin Sodium [Pravachol] 40 mg PO HS 03/09/23 03/09/23 History metFORMIN HCL ER [Glucophage XR] 1,000 mg PO DAILY 03/09/23 03/09/23 History Allergies Allergy/AdvReac Type Severity Reaction Status Date / Time haloperidol [From Haldol] Allergy Unknown Unknown Verified 03/09/23 15:54 haloperidol lactate Allergy Unknown Unknown Verified 03/09/23 15:54 [From Haldol] risperidone [From Risperdal] AdvReac Unknown Unknown Verified 03/09/23 15:54 Physical Exam Vitals: Vital Signs Temp Pulse Pulse Resp BP Pulse Ox 03/09/23 16:35 72 18 96 03/09/23 15:45 2 L 18 120/86 98 03/09/23 14:39 75 03/09/23 13:41 98.1 F 97 20 130/82 93 L Intake and Output 03/09/23 03/09/23 03/09/23 06:59 14:59 22:59 Other: Weight 102.058 kg Results CBC & Chem 7: 03/09/23 14:38 03/09/23 14:38 Labs: Abnormal Lab Results - Last 24 Hours (Table) 03/09/23 Range/Units 14:38 Glucose 109 H (74-99) mg/dL Magnesium 1.3 L (1.6-2.3) mg/dL
[2023-03-09] MEDS ORDERED: PRAVASTATIN SODIUM 40 MG TAB PO SCH (21:00)
[2023-03-09] MEDS ORDERED: traZODone HCL 100 MG TAB PO SCH (21:00)
[2023-03-09] MEDS: BENZTROPINE MESYLATE 1 MG TAB PO SCH (21:52)
[2023-03-09] MEDS: DIVALPROEX ER 250 MG TAB.ER.24H PO SCH (21:52)
[2023-03-09] MEDS: PRIMIDONE 50 MG TAB PO SCH (22:12)
[2023-03-10] MEDS: BENZTROPINE MESYLATE 1 MG TAB PO SCH (08:50)
[2023-03-10] MEDS: PRIMIDONE 50 MG TAB PO SCH ×2 (08:50→16:36)
[2023-03-10] MEDS: DIVALPROEX ER 250 MG TAB.ER.24H PO SCH (08:51)
[2023-03-10] MEDS ORDERED: PANTOPRAZOLE 40 MG TABLET PO SCH (09:00)
[2023-03-10] MEDS ORDERED: CHLORTHALIDONE 25 MG TAB PO SCH (09:00)
[2023-03-10] MEDS ORDERED: ENOXAPARIN 40 MG/0.4 ML SYRINGE SQ SCH (09:00)
[2023-03-10] MEDS ORDERED: ASPIRIN 325 MG TAB PO SCH (09:00)
[2023-03-10] MEDS ORDERED: LOSARTAN 50 MG TAB PO SCH (09:00)
[2023-03-10] MEDS ORDERED: ASPIRIN 81 MG PO SCH (09:00)
--- NOTE | 2023-03-10 09:23 | US ---
EXAMINATION TYPE: US gallbladder DATE OF EXAM: 03/10/2023 COMPARISON: CT CLINICAL INDICATION: Male, 57 years old with history of RUQ pain; RUQ pain TECHNIQUE: Multiple sonographic images of the right upper quadrant are obtained. FINDINGS: EXAM MEASUREMENTS: Liver Length: 18.5 cm Gallbladder Wall: 0.2 cm CBD: 0.6 cm Right Kidney: 11.3 x 5.0 x 5.7 cm Pancreas: wnl Liver: Limited views, enlarged, appeared fatty increased echotexture. No suspicious masses. Gallbladder: Slightly distended, possible stones vs. sludge balls near neck, wall not thickened Evidence for sonographic Owens's sign: No CBD: wnl Right Kidney: No evidence of hydro, limited views IMPRESSION: 1. Biliary sludge versus small stones near the neck. No evidence for cholecystitis. 2. Hepatic steatosis.
[2023-03-10 10:05] LABS: Chol/HDL Ratio 2.74 Ratio; LDL Cholesterol,Calculated 81.4 mg/dL (0.0-131.0); VLDL Calculation 19.62 mg/dL (5.00-40.00)
--- NOTE | 2023-03-10 10:18 | P.CRDCN ---
History of Present Illness History of present illness: HISTORY OF PRESENT ILLNESS: This is a 57-year-old male with a past medical history significant for hypertension, hyperlipidemia, diabetes, GERD, and cognitive delay. Patient does have a legal guardian. Patient does not follow with a scanning tech. We have been asked to see the patient in consultation for chest pain. Patient examined at the bedside. Patient sisters at the bedside. Neither the patient or his sister are able to give a detailed history. The patient states he came to the hospital because he could not sleep and felt like he was not breathing right. However at the time of examination he denies any shortness of breath. He denies any fever or cough. He denies any chest pain or pressure. The patient denied having any chest pain or pressure yesterday. He currently denies any abdominal pain. He does report abdominal pain when he had his gallbladder ultrasound performed today. He denies nausea or vomiting. Vital signs are stable. DIAGNOSTICS: - EKG reveals sinus mechanism with no signs of acute ischemia. - Chest xray negative for acute process - Laboratory data: WBC 6.8. Hemoglobin 15.0. Platelet count 202. Sodium 138. Potassium 3.6. BUN 18. Creatinine 0.74. Magnesium 1.3. Troponin negative x 3. proBNP 228. LDL 81. - Current home cardiac medications include Pravachol 40 mg at night and losartan 50 mg daily. REVIEW OF SYSTEMS: At the time of my exam: Unable to obtain thorough review of systems secondary to cognitive delay PHYSICAL EXAM: VITAL SIGNS: Reviewed. GENERAL: Well-developed in no acute distress. HEENT: Head is normocephalic. Pupils are equal, round. Sclerae anicteric. Mucous membranes of the mouth are moist. Neck supple. No JVD or thyromegaly LUNGS: Respirations even and unlabored. Lungs essentially clear to auscultation bilaterally. HEART: Regular rate and rhythm. S1 and S2 heard. ABDOMEN: Soft. Nondistended. Nontender. EXTREMITIES: Normal range of motion. No clubbing or cyanosis. Peripheral pulses intact. No lower extremity edema NEUROLOGIC: Awake and alert. ASSESSMENT: Chest pain, ruled out, patient denies having any chest pain yesterday or today Possible abdominal pain; gallbladder ultrasound pending History of hypertension History of hyperlipidemia Diabetes GERD History of cognitive delay PLAN: An acute coronary but has been ruled out Resume home cardiac medications Obtain 2D echo to assess cardiac structure and function No plans for stress testing at this time If 2D echo does not reveal any significant abnormalities, cardiology will sign off Nurse practitioner note has been reviewed by physician. Signing provider agrees with the documented findings, assessment, and plan of care documented by [employer] as a scribe. Past Medical History Past Medical History: GERD/Reflux, Hearing Disorder / Deafness, Hyperlipidemia, Hypertension, Neurologic Disorder, Sleep Apnea/CPAP/BIPAP Additional Past Medical History / Comment(s): Pt's sister denies pt having a seizure disorder, seizure disorder is in past medical record, idiopathic parkinson's per past medical record, hiatal hernia, colon polyp, diverticular disease, leg edema bilaterally, DEBRA/no device History of Any Multi-Drug Resistant Organisms: None Reported Past Surgical History: No Surgical Hx Reported Additional Past Surgical History / Comment(s): EGD, colonoscopy. Past Anesthesia/Blood Transfusion Reactions: No Reported Reaction Additional Past Anesthesia/Blood Transfusion Reaction / Comment(s): FIRST ANESTHETIC Past Psychological History: Bipolar, Schizophrenia Additional Psychological History / Comment(s): Pt resides alone in his apartment. Sister states normally he is fairly independent but has noticed a decline in the past 2 weeks, having difficulty managing his care. Pt does not drive, uses the bus system. He has a [facility], Lionel Marinelli. Pt goes once a week to get his medications from the [facility] office, they arrange his meds for him. Smoking Status: Never smoker Past Alcohol Use History: None Reported Past Drug Use History: None Reported - Past Family History Mother Family Medical History: Cancer Additional Family Medical History / Comment(s): Mother had breast cancer. Father Family Medical History: CVA/TIA, Hypertension, Myocardial Infarction ([place]) Additional Family Medical History / Comment(s): Father had MIs/cva's. Medications and Allergies Home Medications Medication Instructions Recorded Confirmed Type Primidone [Mysoline] 50 mg PO TID 05/26/16 03/09/23 History Losartan [Cozaar] 50 mg PO DAILY 03/14/19 03/09/23 History fluPHENAZine HCl [fluPHENAZine HCL] 10 mg PO BID 03/14/19 03/09/23 History Chlorthalidone 50 mg PO DAILY 12/09/20 03/09/23 History Cholecalciferol [Vitamin D3 (25 25 mcg PO DAILY 12/09/20 03/09/23 History Mcg = 1000 Iu)] Omeprazole 40 mg PO DAILY 12/09/20 03/09/23 History Divalproex ER [Depakote ER] 750 mg PO BID #180 tab 12/15/20 03/09/23 Rx traZODone HCL [Desyrel] 100 mg PO HS #30 tab 12/15/20 03/09/23 Rx Benztropine Mesylate [Cogentin] 1 mg PO BID 03/09/23 03/09/23 History Pravastatin Sodium [Pravachol] 40 mg PO HS 03/09/23 03/09/23 History metFORMIN HCL ER [Glucophage XR] 1,000 mg PO DAILY 03/09/23 03/09/23 History Allergies Allergy/AdvReac Type Severity Reaction Status Date / Time haloperidol [From Haldol] Allergy Unknown Unknown Verified 03/09/23 15:54 haloperidol lactate Allergy Unknown Unknown Verified 03/09/23 15:54 [From Haldol] risperidone [From Risperdal] AdvReac Unknown Unknown Verified 03/09/23 15:54 Physical Exam Vitals: Vital Signs Temp Pulse Pulse Pulse Resp BP BP 03/10/23 07:00 97.3 F L 50 L 16 03/10/23 02:34 96.3 F L 51 L 18 126/78 03/09/23 22:10 73 03/09/23 20:16 97.3 F L 73 18 149/84 03/09/23 19:59 98.2 F 71 18 114/91 03/09/23 18:46 69 18 116/99 03/09/23 18:12 67 18 116/83 03/09/23 17:29 97.7 F 69 19 03/09/23 16:35 72 18 03/09/23 15:45 2 L 18 120/86 03/09/23 14:39 75 03/09/23 13:41 98.1 F 97 20 130/82 BP Pulse Ox 03/10/23 07:00 114/78 99 03/10/23 02:34 98 03/09/23 22:10 03/09/23 20:16 99 03/09/23 19:59 97 03/09/23 18:46 97 03/09/23 18:12 03/09/23 17:29 95 03/09/23 16:35 96 03/09/23 15:45 98 03/09/23 14:39 03/09/23 13:41 93 L Intake and Output 03/09/23 03/10/23 03/10/23 22:59 06:59 14:59 Other: Voiding Method Toilet # Voids 1 2 Weight 102.058 kg Results 03/09/23 14:38 03/09/23 14:38 Cardiac Enzymes 03/09/23 03/09/23 03/09/23 Range/Units 14:38 14:38 16:50 AST 31 (17-59) U/L Troponin I <0.012 <0.012 (0.000-0.034) ng/mL 03/09/23 Range/Units 20:20 AST (17-59) U/L Troponin I <0.012 (0.000-0.034) ng/mL Coagulation 03/09/23 Range/Units 14:38 PT 11.5 (10.0-12.5) sec APTT 24.7 (22.0-30.0) sec CBC 03/09/23 Range/Units 14:38 WBC 6.8 (3.8-10.6) k/uL RBC 4.90 (4.30-5.90) m/uL Hgb 15.0 (13.0-17.5) gm/dL Hct 44.6 (39.0-53.0) % Plt Count 202 (150-450) k/uL Comprehensive Metabolic Panel 03/09/23 Range/Units 14:38 Sodium 138 (137-145) mmol/L Potassium 3.6 (3.5-5.1) mmol/L Chloride 100 (98-107) mmol/L Carbon Dioxide 27 (22-30) mmol/L BUN 18 (9-20) mg/dL Creatinine 0.74 (0.66-1.25) mg/dL Glucose 109 H (74-99) mg/dL Calcium 9.8 (8.4-10.2) mg/dL AST 31 (17-59) U/L ALT 26 (4-49) U/L Alkaline Phosphatase 62 (38-126) U/L Total Protein 8.0 (6.3-8.2) g/dL Albumin 4.7 (3.5-5.0) g/dL Current Medications Generic Name Dose Route Start Last Admin Trade Name Matthew PRN Reason Stop Dose Admin Aspirin 81 mg 03/10/23 09:00 Aspirin 81 Mg PO DAILY [facility] Benztropine Mesylate 1 mg 03/09/23 21:00 03/09/23 21:52 Benztropine Mesylate 1 Mg Tab PO 1 mg BID [facility] Administration Chlorthalidone 50 mg 03/10/23 09:00 Chlorthalidone 25 Mg Tab PO DAILY [facility] Divalproex Sodium 750 mg 03/09/23 21:00 03/09/23 21:52 Divalproex Er 250 Mg Tab.Er.24h PO 750 mg BID [facility] Administration Enoxaparin Sodium 40 mg 03/10/23 09:00 Enoxaparin 40 Mg/0.4 Ml Syringe SQ DAILY [facility] Fluphenazine HCl 10 mg 03/09/23 21:00 03/09/23 21:52 Fluphenazine 5 Mg Tab PO 10 mg BID [facility] Administration Losartan Potassium 50 mg 03/10/23 09:00 Losartan 50 Mg Tab PO DAILY [facility] Nitroglycerin 0.4 mg 03/09/23 15:45 Nitroglycerin Sl Tabs 0.4 Mg Tab SUBLINGUAL Q5M PRN Chest Pain Pantoprazole Sodium 40 mg 03/10/23 09:00 Pantoprazole 40 Mg Tablet PO DAILY [facility] Pravastatin Sodium 40 mg 03/09/23 21:00 03/09/23 22:12 Pravastatin Sodium 40 Mg Tab PO 40 mg HS [facility] Administration Primidone 50 mg 03/09/23 22:00 03/09/23 22:12 Primidone 50 Mg Tab PO 50 mg TID [facility] Administration Trazodone HCl 100 mg 03/09/23 21:00 03/09/23 21:52 Trazodone Hcl 100 Mg Tab PO 100 mg HS [facility] Administration Intake and Output 03/09/23 03/10/23 03/10/23 22:59 06:59 14:59 Other: Voiding Method Toilet # Voids 1 2 Weight 102.058 kg 03/09/23 14:38 03/09/23 14:38
--- NOTE | 2023-03-10 12:03 | P.DS ---
Providers Date of admission: 03/09/23 15:46 Expected date of discharge: 03/10/23 Attending physician: Pako Perez MD Consults: 03/09/23 15:45 Consult Physician Urgent Consulting Provider: Gavin Scott Consult Reason/Comments: chest pain Do you want consulting provider notified?: Yes Primary care physician: Eric [facility] Course: 57-year-old male with past medical history of diabetes mellitus, Schizophrenia, hypertension, GERD, Dyslipidemia presents to the ED. Patient presents to the ED for chest pain that has been ongoing for the past 1.5 days. Chest pain is right sided, intermittent, pressure like in nature, non radiating. He finds it difficult to take a deep breath when he gets the chest pain. Not related to movement, meals or exertion. Reports strong family history of CAD and CVA in his father, unsure of age. Non smoker, no EtOH. In the ED, patient underwent extensive evaluation: Vital signs stable. CBC unremarkable. CMP glucose 109. Mag 1.3. Troponin < 0.012. BNP 228. Brain CT no acute process. 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 EKG sinus rhythm. Patient is admitted for further workup. Troponins negative, EKG NSR, ACS ruled out. Cardiology consulted, recommended Echo. GB US revealed small gall stones near the neck of the GB with sludge. 2/2 Patient was seen and examined. He reports no right sided chest pain. Feeling back to baseline. Lipid panel T. Chol 159, LDL 81.4. Hopeful discharge home if Echo is OK. Outpatient follow up with surgery for cholelithiasis. General: Non toxic, no distress, appears at stated age Derm: Warm, dry Head: Atraumatic, normocephalic, symmetric Eyes: EOMI, no lid lag, anicteric sclera Cardiovascular: S1S2 reg, no murmur Lungs: CTA bilateral, no rhonchi, no rales, no accessory muscle use Abdominal: Soft, nontender to palpation, no guarding, no appreciable organomegaly Ext: No gross muscle atrophy, no edema, no contractures Neuro: no focal neuro deficits, resting tremor bilateral UE Psych: Alert and oriented Discharge Diagnosis: Chest pain Cholelithiasis HypoMag This complex discharge took 35 minutes to complete. Patient Condition at Discharge: Stable Plan - Discharge Summary Discharge Rx Participant: No New Discharge Prescriptions: No Action Primidone [Mysoline] 50 mg PO TID Losartan [Cozaar] 50 mg PO DAILY fluPHENAZine HCl [fluPHENAZine HCL] 10 mg PO BID Omeprazole 40 mg PO DAILY Cholecalciferol [Vitamin D3 (25 Mcg = 1000 Iu)] 25 mcg PO DAILY Chlorthalidone 50 mg PO DAILY Divalproex ER [Depakote ER] 750 mg PO BID #180 tab traZODone HCL [Desyrel] 100 mg PO HS #30 tab metFORMIN HCL ER [Glucophage XR] 1,000 mg PO DAILY Benztropine Mesylate [Cogentin] 1 mg PO BID Pravastatin Sodium [Pravachol] 40 mg PO HS Discharge Medication List Primidone [Mysoline] 50 mg PO TID 05/26/16 [History] Losartan [Cozaar] 50 mg PO DAILY 03/14/19 [History] fluPHENAZine HCl [fluPHENAZine HCL] 10 mg PO BID 03/14/19 [History] Chlorthalidone 50 mg PO DAILY 12/09/20 [History] Cholecalciferol [Vitamin D3 (25 Mcg = 1000 Iu)] 25 mcg PO DAILY 12/09/20 [History] Omeprazole 40 mg PO DAILY 12/09/20 [History] Divalproex ER [Depakote ER] 750 mg PO BID #180 tab 12/15/20 [Rx] traZODone HCL [Desyrel] 100 mg PO HS #30 tab 12/15/20 [Rx] Benztropine Mesylate [Cogentin] 1 mg PO BID 03/09/23 [History] Pravastatin Sodium [Pravachol] 40 mg PO HS 03/09/23 [History] metFORMIN HCL ER [Glucophage XR] 1,000 mg PO DAILY 03/09/23 [History] Follow up Appointment(s)/Referral(s): Nonstaff,Physician [REFERRING] - 1-2 days
[2023-03-10 14:39] VITALS: BP 172/64; PULSE 73; RESP 18; TEMP 97.6
--- NOTE | 2023-03-10 19:10 | CA ---
Transthoracic Echo Report Name: Larry Sosa Age: 57 Gender: M : 1965 Exam Date: 03/10/2023 15:12 Exam Location: [facility] Ht (in): 67 Wt (lb): 225 Ordering Physician: Avani Duval MD Attending/Referring Phys: Molding Plasterer Rosana Mason RDCS Procedure CPT: Indications: CP Cardiac Hx: Technical Quality: Technically difficult study Contrast 1: Definity Total Dose (mL): 2 Contrast 2: Total Dose (mL): MEASUREMENTS (Male / Female) Normal Values 2D ECHO LV Diastolic Diameter PLAX 3.4 cm 4.2 - 5.9 / 3.9 - 5.3 cm LV Systolic Diameter PLAX 2.0 cm IVS Diastolic Thickness 1.8 cm 0.6 - 1.0 / 0.6 - 0.9 cm LVPW Diastolic Thickness 1.5 cm 0.6 - 1.0 / 0.6 - 0.9 cm LV Relative Wall Thickness 1.0 RV Internal Dim ED PLAX 2.4 cm M-MODE Aortic Root Diameter MM 2.6 cm LA Systolic Diameter MM 4.2 cm LA Ao Ratio MM 1.6 AV Cusp Separation MM 2.0 cm DOPPLER AV Peak Velocity 71.6 cm/s AV Peak Gradient 2.1 mmHg AV Mean Velocity 47.9 cm/s AV Mean Gradient 1.0 mmHg AV Velocity Time Integral 12.9 cm LVOT Peak Velocity 59.1 cm/s LVOT Peak Gradient 1.4 mmHg LVOT Velocity Time Integral 13.4 cm MV Area PHT 2.7 cm??? Mitral E Point Velocity 68.0 cm/s Mitral A Point Velocity 91.1 cm/s Mitral E to A Ratio 0.7 MV Deceleration Time 277.7 ms FINDINGS Left Ventricle Moderately increased left ventricular wall thickness. Left ventricular cavity size normal. Normal left ventricular systolic function with no obvious regional wall motion abnormalities. Left ventricular ejection fraction is estimated at 55-60 %. Right Ventricle Normal right ventricular size and function. Right ventricular systolic pressure within normal limits. Right Atrium Normal right atrial size. Left Atrium Normal left atrial size. Mitral Valve Structurally normal mitral valve. No mitral regurgitation. Aortic Valve No aortic valve stenosis or regurgitation. Tricuspid Valve Tricuspid valve not well visualized. Pulmonic Valve Trace pulmonic regurgitation. Pericardium No pericardial effusion. Aorta Normal size aortic root and proximal ascending aorta. CONCLUSIONS Technically difficult study. Left ventricular ejection fraction is estimated at 55-60 %. Normal left ventricular systolic function with no obvious regional wall motion abnormalities. Moderately increased left ventricular wall thickness. No significant valvular disorder Previewed by: Dr Mike Valenzuela (Electronically Signed) Final Date: 10 March 2023 19:09
== END 2023-03-10 17:39 | disposition home or self-care (01) ==
LOC: EC 13:37 → 6NMEDSUR 15:46
PROVIDERS: ADMIT Student in an Organized Health Care Education/Training Program; ATTEND Student in an Organized Health Care Education/Training Program
DX: R07.89 Other chest pain (principal); E83.42 Hypomagnesemia; K80.20 Calculus of gallbladder without cholecystitis without obstruction; I10 Essential (primary) hypertension; E78.5 Hyperlipidemia, unspecified; E11.9 Type 2 diabetes mellitus without complications; F88 Other disorders of psychological development; F20.9 Schizophrenia, unspecified; F31.9 Bipolar disorder, unspecified; K21.9 Gastro-esophageal reflux disease without esophagitis; Z79.4 Long term (current) use of insulin; Z79.84 Long term (current) use of oral hypoglycemic drugs; Z79.899 Other long term (current) drug therapy; Z88.8 Allergy status to other drugs, medicaments and biological substances; Z82.49 Family history of ischemic heart disease and other diseases of the circulatory system; Z82.3 Family history of stroke
CPT/HCPCS: 96366 ×2; 96365; 99285; 36415; 93005; 83880; 80061; 80053; 83735; 84484; 85025; 85610; 85730; 71046; 76705; G0378 ×2; C8929; Q9957; J3475; 93306

== ENCOUNTER 2023-07-21 09:06 | Emergency (ER) | payer MEDICARE, OTHER ==
[2023-07-21 10:20] VITALS: TEMP 98.7
--- NOTE | 2023-07-21 10:26 | XR ---
EXAMINATION TYPE: XR chest 2V DATE OF EXAM: 07/21/2023 COMPARISON: 03/09/2023 TECHNIQUE: PA and lateral views submitted. HISTORY: Weakness FINDINGS: Limited inspiration with basilar subsegmental atelectasis greater on the left.. Heart size normal an d no overt failure. Osseous structures demonstrate hypertrophic and degenerative changes of the spine . IMPRESSION: 1. Left basilar atelectasis favored over pneumonia correlate clinically.
[2023-07-21 10:27] LABS: Basophils % (A) 1 %; Eosinophils # (A) 0.2 k/uL (0-0.7); Eosinophils % (A) 3 %; INR 1.1 (<1.2); Lymphocytes # (A) 1.8 k/uL (1.0-4.8); Lymphocytes % (A) 35 %; MCHC 33.3 g/dL (31.0-37.0); Mean Platelet Volume 8.4; Monocytes # (A) 0.5 k/uL (0-1.0); Monocytes % (A) 10 %; Neutrophils # (A) 2.5 k/uL (1.3-7.7); Neutrophils % (A) 49 %; Partial Thromboplastin Time 25.3 sec (22.0-30.0); Platelet Count 168 k/uL (150-450); Prothrombin Time 11.9 sec (10.0-12.5); RBC 4.33 m/uL (4.30-5.90); RDW 13.7 % (11.5-15.5); WBC 5.2 k/uL (3.8-10.6)
[2023-07-21 10:34] LABS: ALT 16 U/L (4-49); AST 18 U/L (17-59); African American GFR (CKD) >90 (>60 ml/min/1.73 sqM); Albumin 3.7 g/dL (3.5-5.0); Alkaline Phosphatase 49 U/L (38-126); Anion Gap 7 mmol/L; Blood Urea Nitrogen 18 mg/dL (9-20); Calcium 9.1 mg/dL (8.4-10.2); Carbon Dioxide 29 mmol/L (22-30); Chloride 102 mmol/L (98-107); Glucose 103 mg/dL (74-99); Magnesium 1.2 mg/dL (1.6-2.3); Non-African American GFR(CKD) >90 (>60 ml/min/1.73 sqM); Potassium 3.5 mmol/L (3.5-5.1); Sodium 138 mmol/L (137-145); Total Bilirubin 0.3 mg/dL (0.2-1.3); Total Protein 6.1 g/dL (6.3-8.2)
[2023-07-21 10:41] LABS: NT-Pro-B-Type Natriuretic Pept 96 pg/mL
[2023-07-21] MEDS: MAGNESIUM SULFATE-D5W PMX 1 GM in DEXTROSE/WATER 1 100ML.BAG IVPB ONE (10:54)
--- NOTE | 2023-07-21 13:45 | US ---
EXAMINATION TYPE: US venous doppler duplex LE DATE OF EXAM: 07/21/2023 11:07 AM COMPARISON: None CLINICAL INDICATION: Male, 58 years old with history of worsening edema, eval for DVT; Not on blood t hinners. SIDE PERFORMED: Bilateral TECHNIQUE: The lower extremity deep venous system is examined utilizing real time linear array sonog bruno with graded compression, doppler sonography and color-flow sonography. VESSELS IMAGED: Common Femoral Vein Deep Femoral Vein Greater Saphenous Vein * Femoral Vein Popliteal Vein Small Saphenous Vein * Proximal Calf Veins (* superficial vessels) The deep venous systems of both lower extremities from the common femoral remains to the proximal adalberto f veins are patent and compressible with augmentable flow and with normal waveforms. IMPRESSION: No evidence of bilateral lower extremity DVT from the common femoral veins to the proximal calf veins
--- NOTE | 2023-07-21 13:54 | ED ---
General Adult HPI - General Chief complaint: Weakness Stated complaint: leg edema Time Seen by Provider: 07/21/23 09:30 Source: patient, family, RN notes reviewed, old records reviewed Mode of arrival: EMS Limitations: no limitations - History of Present Illness Initial comments: Patient is a 58-year-old male presents emergency department complaining of lower extremity weakness and edema. Also complains of intermittent lightheadedness. Currently has not none of the symptoms other than the lower extremity edema. Presents for further evaluation at this time. States symptoms have been ongoing for weeks to months. - Related Data Home Medications Medication Instructions Recorded Confirmed Primidone [Mysoline] 50 mg PO TID 05/26/16 07/21/23 Losartan [Cozaar] 50 mg PO DAILY 03/14/19 07/21/23 fluPHENAZine HCl [fluPHENAZine HCL] 10 mg PO BID 03/14/19 07/21/23 Chlorthalidone 50 mg PO DAILY 12/09/20 07/21/23 Cholecalciferol [Vitamin D3 (25 50 mcg PO DAILY 12/09/20 07/21/23 Mcg = 1000 Iu)] Omeprazole 40 mg PO DAILY 12/09/20 07/21/23 Benztropine Mesylate [Cogentin] 1 mg PO BID PRN 03/09/23 07/21/23 Pravastatin Sodium [Pravachol] 40 mg PO HS 03/09/23 07/21/23 metFORMIN HCL ER [Glucophage XR] 1,000 mg PO DAILY 03/09/23 07/21/23 Magnesium 250 mg PO DAILY 07/21/23 07/21/23 Previous Rx's Medication Instructions Recorded Divalproex ER [Depakote ER] 750 mg PO BID #180 tab 12/15/20 traZODone HCL [Desyrel] 100 mg PO HS #30 tab 12/15/20 Allergies Allergy/AdvReac Type Severity Reaction Status Date / Time haloperidol [From Haldol] Allergy Unknown Unknown Verified 07/21/23 13:21 haloperidol lactate Allergy Unknown Unknown Verified 07/21/23 13:21 [From Haldol] risperidone [From Risperdal] Allergy Unknown Unknown Verified 07/21/23 13:21 Review of Systems ROS Statement: Those systems with pertinent positive or pertinent negative responses have been documented in the HPI. Review of Systems: CONST: Denies fever EYES: Denies blurry vision ENT: Denies nasal congestion C/V: Denies Chest pain RESP: Denies shortness of breath GI: Denies abdominal pain : Denies dysuria SKIN: Denies rash. MSK: Denies joint pain. NEURO: Denies headache ROS Other: All systems not noted in ROS Statement are negative. Past Medical History Past Medical History: GERD/Reflux, Hearing Disorder / Deafness, Hyperlipidemia, Hypertension, Neurologic Disorder, Sleep Apnea/CPAP/BIPAP Additional Past Medical History / Comment(s): Pt's sister denies pt having a seizure disorder, seizure disorder is in past medical record, idiopathic parkinson's per past medical record, hiatal hernia, colon polyp, diverticular disease, leg edema bilaterally, DEBRA/no device History of Any Multi-Drug Resistant Organisms: None Reported Past Surgical History: No Surgical Hx Reported Additional Past Surgical History / Comment(s): EGD, colonoscopy. Past Anesthesia/Blood Transfusion Reactions: No Reported Reaction Additional Past Anesthesia/Blood Transfusion Reaction / Comment(s): FIRST ANESTHETIC Past Psychological History: Bipolar, Schizophrenia Smoking Status: Never smoker Past Alcohol Use History: None Reported Past Drug Use History: None Reported - Past Family History Mother Family Medical History: Cancer Additional Family Medical History / Comment(s): Mother had breast cancer. Father Family Medical History: CVA/TIA, Hypertension, Myocardial Infarction ([place]) Additional Family Medical History / Comment(s): Father had MIs/cva's. General Exam - General Exam Comments Initial Comments: General: Appears in no acute distress. HEAD: Normal with no signs of head trauma. EYES: PERRLA, EOMI, conjunctiva normal, no discharge. ENT: Hearing grossly intact, normal oropharynx. RESPIRATORY: Clear breath sounds bilaterally. No wheezes, rales, or rhonchi. C/V: Regular rate and rhythm. S1 and S2 auscultated, metrical lower extremity pitting edema, peripheral pulses 2+ and intact throughout ABD: Abd is soft, nontender, nondistended EXT: Normal range of motion, no obvious deformity SKIN: No rashes or lesions observed on exposed skin. NEURO: Alert and oriented x 4. Cranial nerves II-XII intact. No focal sensory or strength deficits. No obvious deficits. No significant weakness appreciated. NIH of 0. Limitations: no limitations Course Vital Signs 07/21/23 07/21/23 07/21/23 09:16 09:20 09:37 Temperature 98.7 F Pulse Rate 68 62 Pulse Rate [ 68 [employer] ] Respiratory 20 16 20 Rate Blood Pressure 131/85 128/80 O2 Sat by Pulse 98 98 Oximetry 07/21/23 14:13 Temperature Pulse Rate 71 Pulse Rate [ [employer] ] Respiratory 18 Rate Blood Pressure 142/79 O2 Sat by Pulse 96 Oximetry Medical Decision Making - Medical Decision Making Was pt. sent in by a medical professional or institution (, [facility], [facility], urgent care, hospital, or jail...) When possible be specific @ -No Did you speak to anyone other than the patient for history (EMS, parent, family, police, friend...)? What history was obtained from this source @ -No Did you review nursing and triage notes (agree or disagree)? Why? @ -I reviewed and agree with nursing and triage notes Were old charts reviewed (outside hosp., previous admission, EMS record, old EKG, old radiological studies, urgent care reports/EKG's, jail records)? Report findings @ -No old charts were reviewed Differential Diagnosis (chest pain, altered mental status, abdominal pain women, abdominal pain men, vaginal bleeding, weakness, fever, dyspnea, syncope, headache, dizziness, GI bleed, back pain, seizure, CVA, palpatations, mental he alth, musculoskeletal)? @ -Lower extremity edema, DVT, CHF, lymphedema, electrolyte abnormality. This list is not all inclusive. EKG interpreted by me (3pts min.). @ -As above X-rays interpreted by me (1pt min.). @ -Chest x-ray reveals no evidence of cardiopulmonary process. No pulmonary vascular congestion. Radiology concern for possible pneumonia but he has no systemic symptoms or clinical signs of pneumonia at this time. Likely atelectasis. CT interpreted by me (1pt min.). @ -None done U/S interpreted by me (1pt. min.). @ -Lower extremity venous duplex ultrasound negative for DVT in bilateral lower extremities. What testing was considered but not performed or refused? (CT, X-rays, U/S, labs)? Why? @ -None What meds were considered but not given or refused? Why? @ -None Did you discuss the management of the patient with other professionals (professionals i.e. , [facility], [facility], lab, RT, psych nurse, social work manager, ballistics teacher, teacher, life science technical officer, assistant case manager)? Give summary @ -No Was smoking cessation discussed for >3mins.? @ -No Was critical care preformed (if so, how long)? @ -No Were there social determinants of health that impacted care today? How? (Homelessness, low income, unemployed, alcoholism, drug addiction, transportation, low edu. Level, literacy, decrease access to med. care, penitentiary, rehab)? @ -No Was there de-escalation of care discussed even if they declined (Discuss DNR or withdrawal of care, Hospice)? DNR status @ -No What co-morbidities impacted this encounter? (DM, HTN, Smoking, COPD, CAD, Cancer, CVA, ARF, Chemo, Hep., AIDS, mental health diagnosis, sleep apnea, morbid obesity)? @ -None Was patient admitted / discharged? Hospital course, mention meds given and route, prescriptions, significant lab abnormalities, going to OR and other pert inent info. @ -Based on the patient's presentation and physical exam, presents emergency department complaining of some generalized weakness as well as lower extremity swelling which has been chronic. We will obtain workup to evaluate the lower extremity swelling. No other symptoms at this time. His primary concerned regarding the swelling. Vital signs within acceptable limits. EKG shows no signs of acute ischemia. No evidence of DVT on ultrasound. No evidence of CHF on chest x-ray and BNP is within normal limits. Patient is hypomagnesemic mildly on labs. Remainder the workup unremarkable. Magnesium was mildly low and this was replenished. On reevaluation, patient is feeling improved. He is able to ambulate without difficulty. I discussed the results. I believe it is safe prescription for him to be discharged home. Diagnosis is dependent edema. He was in agreement this plan. Strict return precautions discussed. Recommended elevation of his legs, obtaining compression socks, follow-up with PCP. I instructed the patient to follow up with their PCP in the next 1-3 days. I explained that the patient should return to the emergency department if they experience any worsening symptoms. Strict return precautions were discussed with the patient. The patient expressed understanding of these instructions. I answered all questions that the patient had. The patient was discharged home in good condition with their prescriptions and follow up information. Undiagnosed new problem with uncertain prognosis? @ -No Drug Therapy requiring intensive monitoring for toxicity (Heparin, Nitro, Insulin, Cardizem)? @ -No Were any procedures done? @ -No Diagnosis/symptom? @ -Dependent edema, hypomagnesemia Acute, or Chronic, or Acute on Chronic? @ -Acute Uncomplicated (without systemic symptoms) or Complicated (systemic symptoms)? @ -Uncomplicated Side effects of treatment? @ -No Exacerbation, Progression, or Severe Exacerbation? @ -No Poses a threat to life or bodily function? How? (Chest pain, [place], [place], pneumonia, PE, COPD, DKA, ARF, appy, cholecystitis, CVA, Diverticulitis, Homicidal, Suicidal, threat to staff... and all critical care pts) @ -Unlikely - Lab Data Result diagrams: 07/21/23 09:36 07/21/23 09:36 Lab Results 07/21/23 07/21/23 07/21/23 Range/Units 09:36 09:36 09:36 WBC 5.2 (3.8-10.6) k/uL RBC 4.33 (4.30-5.90) m/uL Hgb 13.0 (13.0-17.5) gm/dL Hct 39.0 (39.0-53.0) % MCV 90.0 (80.0-100.0) fL MCH 30.0 (25.0-35.0) pg MCHC 33.3 (31.0-37.0) g/dL RDW 13.7 (11.5-15.5) % Plt Count 168 (150-450) k/uL MPV 8.4 Neutrophils % 49 % Lymphocytes % 35 % Monocytes % 10 % Eosinophils % 3 % Basophils % 1 % Neutrophils # 2.5 (1.3-7.7) k/uL Lymphocytes # 1.8 (1.0-4.8) k/uL Monocytes # 0.5 (0-1.0) k/uL Eosinophils # 0.2 (0-0.7) k/uL Basophils # 0.0 (0-0.2) k/uL PT 11.9 (10.0-12.5) sec INR 1.1 (<1.2) APTT 25.3 (22.0-30.0) sec Sodium 138 (137-145) mmol/L Potassium 3.5 (3.5-5.1) mmol/L Chloride 102 (98-107) mmol/L Carbon Dioxide 29 (22-30) mmol/L Anion Gap 7 mmol/L BUN 18 (9-20) mg/dL Creatinine 0.78 (0.66-1.25) mg/dL Est GFR (CKD-EPI)AfAm >90 (>60 ml/min/1.73 sqM) Est GFR (CKD-EPI)NonAf >90 (>60 ml/min/1.73 sqM) Glucose 103 H (74-99) mg/dL Calcium 9.1 (8.4-10.2) mg/dL Magnesium 1.2 L (1.6-2.3) mg/dL Total Bilirubin 0.3 (0.2-1.3) mg/dL AST 18 (17-59) U/L ALT 16 (4-49) U/L Alkaline Phosphatase 49 (38-126) U/L NT-Pro-B Natriuret Pep 96 pg/mL Total Protein 6.1 L (6.3-8.2) g/dL Albumin 3.7 (3.5-5.0) g/dL - EKG Data -: EKG Interpreted by Me EKG Comments: 12-lead Electrocardiogram Interpretation Note EKG was reviewed and interpreted by myself. 12-lead ECG performed at 0949 is interpreted by me as revealing sinus bradycardia at a rate of 59 beats per minute. [place] is normal. MI interval is 193 ms, QRS duration is 90 ms, QTc is 394 ms.. There were no ST or T wave abnormalities to suggest myocardial ischemia or injury. R wave progression across the precordium was satisfactory. By my interpretation this EKG is non-diagnostic for acute ischemia. Disposition Clinical Impression: Dependent edema, Hypomagnesemia Disposition: HOME SELF-CARE Condition: Good Instructions (If sedation given, give patient instructions): Lymphedema (ED) Is patient prescribed a controlled substance at d/c from ED?: No Referrals: Eric Jacobs MD [Primary Care Provider] - 1-2 days Time of Disposition: 13:53
[2023-07-21 14:14] VITALS: BP 142/79; PULSE 71; RESP 18
== END 2023-07-21 14:14 | disposition home or self-care (01) ==
LOC: EC 09:06
DX: R60.0 Localized edema (principal); E83.42 Hypomagnesemia; Z88.5 Allergy status to narcotic agent
CPT/HCPCS: 99285 ×2; 96365 ×2; 96366 ×2; 36415; 93005; 83880; 80053; 83735; 85025; 85610; 85730; 71046; 93970; J3475